=== PATIENT | female | born 1960 | race African-American/Black ===

== ENCOUNTER 2017-06-24 10:35 | Outpatient (CLI) | payer MEDICARE, MEDICAID ==
--- NOTE | 2017-06-24 11:28 | RAD ---
RIGHT KNEE FOUR VIEWS: Indication: Pain. FINDINGS: There is no fracture or dislocation of the right knee. Mild degenerative change present. No significa nt joint capsular distention. IMPRESSION: No acute osseous abnormality of the right knee. POS: [facility]
--- NOTE | 2017-06-24 11:29 | RAD ---
TWO VIEW HIP SERIES: Indication: Right hip pain. FINDINGS: There is mild osteoarthritis of the right hip. Phleboliths of the pelvis are present. There is partia l imaging of left side lumbar spine hardware. IMPRESSION: Scattered osseous degenerative change without acute fracture. POS: [facility] C
== END 2017-06-24 10:36 | disposition home or self-care (01) ==
LOC: TBSIIMAG 10:35
PROVIDERS: ATTEND Neurological Surgery
DX: M25.561 Pain in right knee (principal); M25.551 Pain in right hip; M16.11 Unilateral primary osteoarthritis, right hip

== ENCOUNTER 2017-07-07 13:13 | Outpatient (CLI) | payer MEDICARE, MEDICAID ==
[2017-07-07 15:05] LABS: Anion Gap 11 mmol/L (10-20); BUN (Urea Nitrogen) 8 mg/dL (9.8-20.1); Calc. Creatinine Clearance 0 mL/min (70-130); Calcium 9.2 mg/dL (7.8-10.44); Carbon Dioxide 29 mmol/L (22-29); Chloride 105 mmol/L (98-107); Estimated GFR-MDRD 87
== END 2017-07-07 13:14 | disposition home or self-care (01) ==
LOC: LABBT 13:13
PROVIDERS: ATTEND Neurological Surgery
DX: Z01.812 Encounter for preprocedural laboratory examination (principal); M48.061 Spinal stenosis, lumbar region without neurogenic claudication; M54.16 Radiculopathy, lumbar region
CPT/HCPCS: 80048; 93005; 93010

== ENCOUNTER 2017-07-14 07:15 | Day surgery (SDC) | payer MEDICARE, MEDICAID ==
[2017-07-07 13:40] VITALS: BMI 28.5
--- NOTE | 2017-07-14 05:52 | HP ---
HISTORY OF PRESENT ILLNESS: Ms. Mari who is known to us from previous unilateral lumbar fusion const ruct at L4-L5 in 2015. She returns today for a year or two with severe right lower extremity L3-L4 p ains. I performed x-rays of the right hip and knee as she feels a very majority of her pain in these locations . She is receiving injections with Dr. Luna, which helped for a few days, then the pain returns. MRI from [facility] reveals central canal and lateral recess stenosis bilaterally at L4 as well as some lateral recess stenosis L2-L3 to the right either or both of these could fit h er pains. PAST MEDICAL HISTORY: Arthritis, asthma, emphysema, back pains, peripheral arterial disease, esophag eal reflux, insomnia, hypercholesterolemia, hypertension, type 2 diabetes. ALLERGIES: PENICILLIN, MORPHINE, LISINOPRIL, AZITHROMYCIN, AND LATEX. CURRENT MEDICATIONS: Include hydrochlorothiazide, Klor-Con tablets, glimepiride, pantoprazole, estra diol, diclofenac, zonisamide, and amitriptyline. PAST SURGICAL HISTORY: Rotator cuff surgery in the left upper extremity and thus previously mentione d lumbar spinal fusion. PHYSICAL EXAMINATION: NEUROLOGIC: The patient is alert and oriented x3. Gait is very antalgic. EXTREMITIES: Lower extremity: Motor exam is normal. Reflexes are diminished at the right lower ext remity at the patellar and Achilles. ASSESSMENT: Lumbar stenosis and radiculopathy. PLAN: Discussed case with Dr. Kohler who met with the patient, reviewed imaging and ultimately advoca kimberly for an L3-L4 decompression. He explained to the patient the risks, benefits, and alternatives to the procedure. The patient expressed understanding and would like to move forward with surgery as nanci horan. I do believe the patient is mentally competent and capable of making medical decisions for herself and we will move forward with surgery as planned.
[2017-07-14] MEDS ORDERED: Clindamycin/D5W 900 mg/50 ml Premix Bag ONE ×2 (09:24→16:03)
[2017-07-14] MEDS ORDERED: Levofloxacin 500 mg/D5W 100 ml Premix Bag ONE (09:24)
[2017-07-14] MEDS ORDERED: Thrombin 5000 UNITS/5 ML VIAL ONE (10:35)
[2017-07-14] MEDS ORDERED: Bupivacaine/Epinephrine 0.25% 30 ML VIAL ONE (10:35)
[2017-07-14] MEDS ORDERED: Phenylephrine 10 MG/NS 250 ML 250 ML ONE (10:50)
[2017-07-14] MEDS ORDERED: Albumin 5% 500 ML ONE (10:50)
[2017-07-14] MEDS ORDERED: Albuterol Sulfate HFA (OR ONLY) ONE (10:59)
[2017-07-14] MEDS ORDERED: Fentanyl 250 MCG/5 ML VIAL ONE (11:11)
[2017-07-14] MEDS ORDERED: Famotidine/PF 20 mg/2ml Vial ONE (11:56)
--- NOTE | 2017-07-14 13:17 | OP ---
DATE OF PROCEDURE: 07/14/2017 SURGEON: Zechariah Kohler M.D. HEARINGS REPORTER: Dayton Escalera PA-C. INDICATION: Pain. DIAGNOSIS: Lumbar stenosis. PROCEDURE: L3 through L4 lumbar decompression. ANESTHESIA: General. PROCEDURE IN DETAIL: The patient was brought into the operating room and placed under general anesth esia. She was flipped from a supine to a prone position on the operating room table. A linear incis ion was then created over the L3-L4 segment. After confirming the appropriate location, an Adson pantera geur as well as a high-speed cutting drill bit and 2, 3 and 4-mm Kerrisons were then used to perform a laminectomy at the L3-L4 interspace to include the medial aspect of the facet joints until the late ral recesses and the central canal were well decompressed. The wound was then irrigated. Hemostasis was maintained throughout. The wound was then closed in anatomic layers and a pressure dressing was applied. There were no known procedure complications.
[2017-07-14] MEDS ORDERED: Fentanyl 100 MCG/2 ML VIAL ONE (13:58)
[2017-07-14] MEDS ORDERED: PHENYLEPHRINE-NS 100 MCG/ML 10 ML SYRINGE ONE (16:12)
[2017-07-14] MEDS ORDERED: Metoclopramide HCl 10 MG/2 ML VIAL ONE (16:12)
[2017-07-14] MEDS ORDERED: Lidocaine 1% PF 5 ML VIAL ONE (16:12)
[2017-07-14] MEDS ORDERED: Glycopyrrolate 0.2 MG/ML 5 ML SYRINGE ONE (16:12)
[2017-07-14] MEDS ORDERED: Propofol 200 MG/20 ML VIAL ONE (16:12)
[2017-07-14] MEDS ORDERED: Vecuronium 10 MG VIAL ONE (16:12)
[2017-07-14] MEDS ORDERED: Dexamethasone 20 MG/5 ML VIAL ONE (16:12)
[2017-07-14] MEDS ORDERED: Ondansetron HCl/PF 4 MG/2 ML Vial ONE (16:12)
== END 2017-07-14 16:45 | disposition home or self-care (01) ==
LOC: SDC 07:15
PROVIDERS: ATTEND Neurological Surgery
PROC: 00NY0ZZ Release Lumbar Spinal Cord, Open Approach (ICD-10-PCS; principal; 2017-07-14)
DX: M48.061 Spinal stenosis, lumbar region without neurogenic claudication (principal); M54.16 Radiculopathy, lumbar region; M19.90 Unspecified osteoarthritis, unspecified site; J45.909 Unspecified asthma, uncomplicated; K21.9 Gastro-esophageal reflux disease without esophagitis; E78.00 Pure hypercholesterolemia, unspecified; I10 Essential (primary) hypertension; I73.9 Peripheral vascular disease, unspecified; E11.9 Type 2 diabetes mellitus without complications; G47.00 Insomnia, unspecified; Z88.0 Allergy status to penicillin; Z88.1 Allergy status to other antibiotic agents; Z88.5 Allergy status to narcotic agent; Z91.040 Latex allergy status; Z98.1 Arthrodesis status; Z79.899 Other long term (current) drug therapy; Z79.84 Long term (current) use of oral hypoglycemic drugs; Z98.890 Other specified postprocedural states
CPT/HCPCS: 63047; 63048; 76001; 96374; P9045; J0131; J1100; J1956; J2001; J2405; J2704; J2765; J3010; J3490; S0028

== ENCOUNTER 2017-09-02 10:51 | Observation (INO) | payer MEDICARE, MEDICAID ==
--- NOTE | 2017-09-02 11:49 | CT ---
CT OF THE BRAIN WITHOUT CONTRAST: INDICATION: History of left-sided weakness for 2 weeks. The patient is also having shortness of breath and chest pain. COMPARISON: CT of the brain dated 01/28/2013 and an MRI of the brain dated 03/18/16. FINDINGS: No acute infarct, hemorrhage, or hydrocephalus is present. The septum pellucidum and third ventricle are midline. The skull and extracranial soft tissues are unremarkable. IMPRESSION: No acute intracranial abnormality seen on noncontrast CT evaluation. POS: [facility]
[2017-09-02 12:04] LABS: #Eosinphils 0.1 thou/uL (0.0-0.7); #Lymphocytes 1.6 thou/uL (1.20-3.40); #Monocytes 0.4 thou/uL (0.11-0.59); #Neutrophils 6.5 thou/uL (1.40-6.50); %Basophils 0.4 % (0.0-1.0); %Eosinophils 1.2 % (0.0-10.0); %Lymphocytes 18.2 % (21.0-51.0); %Monocytes 5.1 % (0.0-10.0); %Neutrophils 75.1 % (42.0-75.0); Hemoglobin 10.9 g/dL (12.0-16.0); Mean Corpuscular HGB CONC 32.8 g/dL (32.0-36.0); Mean Corpuscular Hemoglobin 29.8 pg (27.0-31.0); Mean Corpuscular Volume 90.8 fl (81.0-99.0); Mean Platelet Volume 7.6 fL (7.4-10.4); Platelet Count 244 thou/uL (130-400); RBC Distribution Width 11.9 % (11.5-14.5); Red Blood Cell (RBC) Count 3.66 mill/uL (4.20-5.40); White Blood Cell (WBC) Count 8.6 thou/uL (4.8-10.8)
[2017-09-02 12:18] LABS: ALT (SGPT) 9 U/L (8-55); AST (SGOT) 14 U/L (5-34); Albumin 4.1 g/dL (3.5-5.0); Alkaline Phosphatase 92 U/L (40-150); Anion Gap 15 mmol/L (10-20); BUN (Urea Nitrogen) 7 mg/dL (9.8-20.1); Bilirubin, Total 0.5 mg/dL (0.2-1.2); Calc. Creatinine Clearance 0 mL/min (70-130); Calcium 9.5 mg/dL (7.8-10.44); Carbon Dioxide 25 mmol/L (22-29); Chloride 106 mmol/L (98-107); Estimated GFR-MDRD 79; Globulin 3.3 g/dL (2.4-3.5); Glucose 91 mg/dL (70-105); Potassium 3.7 mmol/L (3.5-5.1); Protein, Total 7.4 g/dL (6.0-8.3); Sodium 142 mmol/L (136-145)
[2017-09-02 12:23] LABS: CKMB 0.6 ng/mL (0-6.6)
--- NOTE | 2017-09-02 15:07 | ULT ---
CAROTID DUPLEX SONOGRAM: HISTORY: CVA. Vascular disease. FINDINGS: RIGHT: Scattered plaque is present. Color and spectral Doppler evaluation, peak systolic velocity of 153 cm /s, and IC to CC ratio of 2.0 suggests stenosis within the distal right cervical ICA to be in the ran ge of 50-69%. Antegrade flow is present within the vertebral artery. LEFT: Scattered plaque is present. Color and spectral Doppler evaluation, peak systolic velocity of 153 cm /s, and IC to CC ratio 1.3 suggests no hemodynamically significant stenosis within the extracranial l eft ICA. Antegrade flow is present within the vertebral artery. IMPRESSION: Atherosclerosis. Slightly elevated velocities within each internal carotid artery suggests stenosis in the range of 50-69%. CT arteriogram could be considered for better detail if needed. POS: JULIO C
--- NOTE | 2017-09-02 15:21 | HP ---
DATE OF ADMISSION: 09/02/2017 CHIEF COMPLAINT: Left-sided weakness. HISTORY OF PRESENT ILLNESS: This is a 56-year-old female who came in with a complai nt of weakness for the past 2 weeks. The patient had a recent back surgery 1 month ago, and she was sent to home physical therapy where physical therapist noticed that the patient was having weakness i n the left upper and lower extremity, and she called her primary care physician who advised the patie nt to go to the ER. The patient was seen today. She was alert and oriented, did not appear to have any acute distress. Left side strengths are 30% weaker than the right side. Otherwise, she has no o ther neurologic deficits. She was able to speak in long sentences, has no dysarthria or any dysphagi a. She has a known history of type 2 diabetes mellitus and hypertension, and has a strong family his tory of strokes with both mother and father had strokes. PAST MEDICAL HISTORY: 1. Hypertension. 2. Type 2 diabetes mellitus. 3. History of asthma. PAST SURGICAL HISTORY: 1. The patient had a low back surgery for possible disk herniation. 2. The patient has right rotator cuff surgery. SOCIAL HISTORY: The patient is not a known smoker. No history of alcohol. No history of illicit dr ug use. She lives independently. Not working at this time. FAMILY HISTORY: The patient has significant family history of coronary artery disease in both mother and father having strokes at early age. History of hypertension runs in the family. REVIEW OF SYSTEMS: All 12 systems are reviewed with the patient thoroughly and found to be negative at this time. Systems reviewed HEENT, CVS, SENIOR CLIMATE ADVISOR, respiratory, GI, , all other systems are reviewed and found to be negative. Constitutional: Weight loss or gain, sense of well-being, ability to conduct usual activities, exerc ise tolerance. Skin/Breast: Rash, itching, changes in hair growth or loss, nail changes, breast lumps, tenderness, swelling, nipple discharge. Eyes: Vision, double vision, tearing, blind spots, pain. ENT/Mouth: Headaches (location, time of onset, duration, precipitating factors), vertigo, lightheadedness, injury. Vision, double vision, tearing, blind spots, pain, nose b leeding, colds, obstruction, discharge, dental difficulties, gingival bleeding, dentures, neck stiffn ess, pain, tenderness, masses in thyroid or other areas Cardiovascular: Precordial pain, substernal distress, palpitations, syncope, dyspnea on exertion, or thopnea, nocturnal paroxysmal dyspnea, edema, cyanosis, hypertension, heart murmurs, varicosities, ph lebitis, claudication. Respiratory: Pain, shortness of breath, wheezing, stridor, cough, hemoptysis, fever or night sweats Gastrointestinal: Poor appetite, dysphagia, indigestion, abdominal pain, heartburn, eructation, naus ea, vomiting, hematemesis, jaundice, constipation, or diarrhea, abnormal stools (jelly-colored, tarry, bloody, greasy, foul smelling), flatulence, hemorrhoids, recent changes in bowel habits. Genitourinary: Urgency, frequency, dysuria, nocturia, hematuria, polyuria, oliguria, unusual (or katerine nge in) color of urine, stones, hesitancy, change in size of stream, dribbling, acute retention or in continence, libido, potency. Musculoskeletal: Pain, swelling, redness or heat of muscles or joints, limitation, of motion, muscular weakness, atrophy, cramps. Neurologic/Psychiatric: Convulsions, paralyses, tremor, incoordination, parasthesias, difficulties w ith memory of speech, sensory or motor disturbances, or muscular coordination (ataxia, tremor), emoti onal problems, anxiety, depression, previous psychiatric care, unusual perceptions, hallucinations. Allergy/Immunologic: Skin rash, anemia, bleeding tendency, polydipsia, polyuria, intolerance to heat or cold. HOME MEDICATIONS: 1. Amitriptyline 25 mg at bedtime. 2. Cyclobenzaprine 10 mg p.o. t.i.d. 3. Diclofenac sodium 75 mg p.o. daily. 4. Estradiol. 5. Gabapentin 600 mg p.o. t.i.d. 6. Glimepiride 2 mg in the morning. 7. Hydrochlorothiazide 25 mg p.o. daily. 8. Lorazepam 1 mg p.o. p.r.n. 9. Potassium chloride. 10. Simvastatin 10 mg at bedtime. 11. Ventolin inhaler as needed. ALLERGIES: PENICILLIN, LISINOPRIL, MORPHINE. PHYSICAL EXAMINATION: VITAL SIGNS: Blood pressures of 138/76, heart rate is 88, respiratory is 19, saturation is 98% on ro om air. GENERAL: The patient is moderately built and moderately nourished, does not appear to be in acute di stress at this time. HEENT: Atraumatic, normocephalic. PERRLA. Extraocular muscles were intact. Oral mucous pink and m oist. CARDIOVASCULAR: S1, S2 normal. No murmurs, rubs or gallops. LUNGS: Bilateral air entry was equal. No wheezing, no crackles. ABDOMEN: Soft, nontender, no guarding, no rebound tenderness. Bowel sounds normal. MUSCULOSKELETAL: No calf tenderness. No pedal edema. No joint tenderness. No joint swelling. SKIN: No cyanosis, no erythema, no rash, no pallor. NEUROLOGIC: Cranial nerve examination II-XII intact. No focal deficits except for the motor deficit s on the left side upper and lower extremity with weakness 30% less than on the right side. PSYCHIATRIC: No signs of suicidal ideation. No signs of bryon. No signs of depression. LYMPHATICS: No evidence of any generalized lymphadenopathy was noted. LABORATORY DATA: WBC 8.6, hemoglobin 10.1, hematocrit is 33.2, platelets is 244. Sodium 142, potass ium 3.7, chloride 106, bicarbonate 25, BUN 7, creatinine 0.89. IMAGING: CT head was done showing no evidence of any acute stroke or any intracranial hemorrhage. ASSESSMENT AND PLAN: 1. Left upper and lower extremity weakness, possible transient ischemic attack. 2. Hypertension. 3. Type 2 diabetes mellitus. 4. History of chronic asthma. PLAN: 1. Plan is to do a thorough evaluation and do workup for a TIA. We will start the patient on aspiri n at this time with 81 mg daily and check the lipid profile in the morning. We will do MRI without c ontrast of the brain tomorrow and bilateral carotid ultrasound. We will do a 2-D echo to look for an y evidence of thromboembolism. We will consult Neurology and also do neuro checks every 4 hours as p er the protocol. 2. The patient has hypertension. We will restart the patient on home medications. 3. His blood pressures are well controlled at this time. We will continue with permissive hypertens ion protocol. 4. The patient has a history of type 2 diabetes mellitus. We will start the patient on diabetic t and will control the blood sugars. We will continue the home medications. At this time, the patie nt is on glimepiride. 5. History of asthma. No evidence of any exacerbation was noted. We will continue with albuterol n ebulizer treatments as needed. 6. DVT prophylaxis. Lovenox 40 mg subcu daily. I spent 75 minutes with this patient.
[2017-09-02] MEDS ORDERED: Ondansetron HCl/PF 4 MG/2 ML Vial IVP PRN ×2 (16:00→16:03)
[2017-09-02] MEDS ORDERED: Acetaminophen 325 MG TAB PO PRN ×2 (16:00→16:03)
[2017-09-02] MEDS ORDERED: Ondansetron ODT 4 MG TAB SL PRN (16:00)
[2017-09-02] MEDS ORDERED: hydrALAZINE 20 MG/ML VIAL SLOW IVP PRN (16:03)
[2017-09-02] MEDS ORDERED: Senokot 8.6 MG TAB PO PRN (16:03)
[2017-09-02] MEDS ORDERED: Bisacodyl 5 MG TAB PO PRN (16:03)
[2017-09-02 16:37] VITALS: BMI 26.7
[2017-09-02] MEDS: Famotidine/PF 20 mg/2ml Vial SLOW IVP SCH (17:20)
[2017-09-02] MEDS: HYDROcodone/Acetaminophen 5/325 mg Tablet PO PRN (17:55)
--- NOTE | 2017-09-02 19:23 | MRI ---
MR OF BRAIN 09/02/17 PROVIDED CLINICAL HISTORY: Left arm numbness. FINDINGS: The ventricular system appears normal in size and morphology. There is no evidence for intracranial h emorrhage or mass effect. There is no evidence for restricted diffusion to suggest recent infarction. No significant intracranial signal abnormality is evident. Patchy areas of T2 hyperintensity involvi ng the periventricular white matter and basal ganglia compatible with chronic microvascular ischemic change. Appropriate flow voids are seen within the major intracranial vessels. The extracranial soft tissues and calvarial marrow signal demonstrate a normal MR appearance. IMPRESSION: 1. No evidence for restricted diffusion to suggest recent infarction. 2. Chronic microvascular ischemic change. POS: [facility]
--- NOTE | 2017-09-02 20:24 | CON ---
DATE OF CONSULTATION: 09/02/2017. CONSULTING PHYSICIAN: Hospitalist Service. IMPRESSION: 1. Subjective left-sided numbness without any obvious abnormalities on MRI. 2. Hypertension. 3. Hyperlipidemia. 4. Moderate carotid stenosis bilaterally in the 50%-69% range. PLAN: 1. Continue aspirin. 2. Continue Lipitor. 3. Echocardiogram. HISTORY OF PRESENT ILLNESS: Ms. Mari is a 56-year-old black female who came in with complaints of a 2-week history of mild left-sided weakness and numbness. The home health nurse apparently instigated her decision to come to the emergency room today. She had a CT scan of the brain done, which did no t show any acute abnormalities. MRI of the brain has been performed, which by my review only shows a tiny area of chronic infarction involving the right external capsule and left subcortical anterior p arietal region. PAST MEDICAL HISTORY: As listed above. ALLERGIES: LATEX, PENICILLIN, LISINOPRIL, MORPHINE. SOCIAL HISTORY: As per chart. MEDICATIONS: Medication list was reviewed. REVIEW OF SYSTEMS: No complaint of headache, nausea, vomiting, vertigo, difficulty swallowing or spe aking. PHYSICAL EXAMINATION: GENERAL: She is a well-nourished, middle-aged woman in no distress. VITAL SIGNS: Blood pressure 138/66, pulse 76, respirations 18, temperature 98. HEENT: Pupils equal and reactive. Conjunctivae are clear. Oropharynx is clear. NECK: Supple. EXTREMITIES: No cyanosis. NEUROLOGIC: She is alert and cooperative. Her speech is fluent and clear. Cranial nerves were inta ct other than subjective decreased left facial sensation to light touch. Motor exam showed symmetric antigravity strength without fix or drift. Gait is intact. Sensory testing in extremities again is subjectively decreased in the left arm and leg. Cerebellar testing showed normal [id number] and rapid alternating movements. LABORATORY STUDIES: CBC and serum chemistries were unremarkable. SUMMARY: This is a middle-aged woman with subjective complaints of some left-sided sensory deficits. Her exam is quite unremarkable otherwise. The MRI by review on the floor did not show anything of significance. Given her risk factors and carotid disease, I would continue aspirin and a statin. Femi damon will need a followup ultrasound in a year.
[2017-09-02] MEDS: Gabapentin 300 MG CAP PO SCH (20:47)
[2017-09-02] MEDS: Docusate 100 MG CAP PO SCH (20:48)
[2017-09-02] MEDS ORDERED: Atorvastatin Calcium 40 MG TAB PO SCH (21:00)
[2017-09-02] MEDS ORDERED: Amitriptyline HCl 25 MG TAB PO SCH (21:00)
[2017-09-02] MEDS ORDERED: Estradiol 1 MG TAB PO SCH (22:30)
[2017-09-03] MEDS: HYDROcodone/Acetaminophen 5/325 mg Tablet PO PRN (03:32)
[2017-09-03 05:08] LABS: Cardiac Risk 2.9 (Less than 4.5)
[2017-09-03] MEDS: Docusate 100 MG CAP PO SCH (08:41)
[2017-09-03] MEDS: Gabapentin 300 MG CAP PO SCH (08:41)
[2017-09-03] MEDS: Famotidine/PF 20 mg/2ml Vial SLOW IVP SCH (08:42)
[2017-09-03] MEDS ORDERED: Enoxaparin Sodium 40 MG/0.4 ML SYRINGE SC SCH (09:00)
[2017-09-03] MEDS ORDERED: Aspirin 81 mg Enteric Coated Tablet PO SCH (09:00)
[2017-09-03] MEDS ORDERED: Estradiol 1 MG TAB PO SCH ×2 (09:00→21:00)
--- NOTE | 2017-09-03 12:43 | DIS ---
ATTENDING PHYSICIAN: Jarett Roldan M.D. DATE OF ADMISSION: 09/02/2017 DATE OF DISCHARGE: 09/03/2017 ADMITTING DIAGNOSIS: Left-sided weakness upper and lower extremities. DISCHARGE DIAGNOSES: Left-sided weakness, possible transient ischemic attack. SECONDARY DIAGNOSES 1. Hypertension. 2. Type 2 diabetes mellitus. 3. History of asthma. 4. Bilateral carotid artery stenosis 50-60%. INVESTIGATIONS DONE DURING THIS ADMISSION: 1. MRI of the head noncontrast did not show any evidence of stroke, but did show any evidence of chr onic ischemic changes. 2. Ultrasound of the carotids showed evidence of a 50-69% stenosis. Recommended CT angiogram. CONSULTATION: Neurology, Dr. Manolo Jimenez. He recommended the patient to be followed up in 6 months with a followup ultrasound. Did not recommend any CT angiogram at this time. HISTORY OF PRESENT ILLNESS/HOSPITAL COURSE: In brief, this is a 56-year-old female with known history of type 2 diabetes mellitus and hypertension who presented with a 2 week history o f weakness. The patient was referred by primary care doctor to the ER for further evaluation. The patient was co mpletely normal. Her strength was diminished on the left side compared to the right side. Otherwise , she is able to walk and do things normally and outpatient therapy also evaluated the patient. The patient as explained above had an MRI negative, but ultrasound showing evidence of internal carotid a rtery stenosis both sides, right greater than the left with a 50-69% and recommending a CT angiogram, but neurologist has seen the patient and said the patient can follow up in 6 months with a followup ultrasound. I explained this to the patient and advised to follow up with the primary care physician . Patient was on diclofenac advised to stop this medication as it is a high risk for strokes and cor onary artery disease and peptic ulcers. The patient is also on estradiol. Advised to stop this medi cation as the patient is high risk for strokes and advised to discuss with the primary care physician for any alternative medication for her postmenopausal symptoms. The patient is also recommended about an aspirin daily and also with atorvastatin as the patient comp lained that she has a history of muscle pains in the past. Advised to discuss with the primary care physician and a neurologist for any alternate statin. The patient is discharged home in stable condition. PHYSICAL EXAMINATION: VITAL SIGNS: Blood pressures are 128/65, heart rate is 81, respirations 18, saturation 98%. GENERAL: The patient is moderately built and moderately nourished, does not appear in acute distress . CARDIOVASCULAR: S1, S2 normal. No murmurs, rubs or gallops. LUNGS: Bilateral air entry was equal. No wheezing, no crackles. ABDOMEN: Soft, nontender, no guarding, no rebound tenderness. Bowel sounds normal. MUSCULOSKELETAL: No calf tenderness. No pedal edema. No joint tenderness, no joint swelling. SKIN: No cyanosis, no erythema, no rash, no pallor. NEUROLOGIC: Cranial nerve examination II-XII intact. No major focal deficits were noted. DISCHARGE MEDICATIONS: 1. Acetaminophen with codeine 2. Amitriptyline 25 mg at bedtime. 3. Gabapentin 600 mg p.o. t.i.d. 4. Glimepiride 2 mg p.o. daily. 5. Hydrochlorothiazide 25 mg p.o. daily. 6. Lorazepam 1 mg as needed p.r.n. 7. Pantoprazole 40 mg p.o. b.i.d. 8. Potassium 10 mg daily. 9. Ventolin. 10. Atorvastatin 80 mg p.o. daily. 11. Aspirin 81 mg p.o. daily. DISCHARGE INSTRUCTIONS: 1. The patient is evaluated by physical therapy suggested to continue on the home PT home physical t herapy. 2. Follow up with primary care physician in 1-2 weeks and to follow up with a neurologist in 1-2 [facility] and also at 6 months for repeat ultrasound of the carotids. 3. Advised the patient to continue with cardiac and diabetic diet. Thirty-five minutes spent with the patient on discharge.
[2017-09-03 12:54] VITALS: BP 126/73; TEMP 98.5
== END 2017-09-03 13:40 | disposition home health service (06) ==
LOC: ERS 10:51 → ERHOLD 12:56 → 2SE 15:42
PROVIDERS: ADMIT Family Medicine; ATTEND Family Medicine
DX: R29.898 Other symptoms and signs involving the musculoskeletal system (principal); I65.23 Occlusion and stenosis of bilateral carotid arteries; I10 Essential (primary) hypertension; E11.9 Type 2 diabetes mellitus without complications; J45.909 Unspecified asthma, uncomplicated; Z88.0 Allergy status to penicillin; Z88.5 Allergy status to narcotic agent; Z91.040 Latex allergy status; Z88.8 Allergy status to other drugs, medicaments and biological substances; Z79.84 Long term (current) use of oral hypoglycemic drugs; Z79.899 Other long term (current) drug therapy; Z98.890 Other specified postprocedural states; Z82.49 Family history of ischemic heart disease and other diseases of the circulatory system; Z82.3 Family history of stroke
CPT/HCPCS: 70450; 70551; 80053; 80061; 82553; 82962 ×2; 83090; 84484; 85025; 85652; 86140; 93005; 93880; 96372; 96374; 96376; 97116; 97139 ×3; 99285; G0378; G8978; G8979; G8980; G8987; G8988; G8989; 36415; 36416; G9162-GN-CH; G9163-GN-CH; J1650; S0028

== ENCOUNTER 2017-12-13 15:03 | Outpatient (CLI) | payer MEDICARE, MEDICAID | END 2017-12-13 15:04 | disposition home or self-care (01) | LOC: BICMAMMO 15:03 | PROVIDERS: ATTEND Family Medicine | DX: Z12.31 Encounter for screening mammogram for malignant neoplasm of breast (principal) | CPT/HCPCS: 77063; 77067 ==

== ENCOUNTER 2018-01-08 09:00 | Observation (INO) | payer MEDICARE, MEDICAID ==
[2018-01-08 09:39] LABS: #Eosinphils 0.3 thou/uL (0.0-0.7); #Lymphocytes 1.7 thou/uL (1.20-3.40); #Monocytes 0.5 thou/uL (0.11-0.59); #Neutrophils 4.9 thou/uL (1.40-6.50); %Basophils 0.5 % (0.0-1.0); %Eosinophils 3.5 % (0.0-10.0); %Lymphocytes 22.4 % (21.0-51.0); %Monocytes 7.3 % (0.0-10.0); %Neutrophils 66.3 % (42.0-75.0); Hemoglobin 10.8 g/dL (12.0-16.0); Mean Corpuscular HGB CONC 34.4 g/dL (32.0-36.0); Mean Corpuscular Hemoglobin 30.1 pg (27.0-31.0); Mean Corpuscular Volume 87.5 fl (81.0-99.0); Mean Platelet Volume 7.1 fL (7.4-10.4); Platelet Count 214 thou/uL (130-400); RBC Distribution Width 13.6 % (11.5-14.5); White Blood Cell (WBC) Count 7.4 thou/uL (4.8-10.8)
[2018-01-08] MEDS ORDERED: Fentanyl 100 MCG/2 ML VIAL ONE ×2 (09:41→12:12)
--- NOTE | 2018-01-08 09:56 | RAD ---
UPRIGHT PORTABLE CHEST 1 VIEW: Date: 01/08/18 HISTORY: 57-year-old female with history of chest pain and left arm pain. COMPARISON: 05/01/13. FINDINGS: Heart size is within normal limits. Postop changes involving the right shoulder. Monitor leads overli e the chest. No confluent pneumonia, overt edema, or pleural effusion. IMPRESSION: No acute intrathoracic disease. POS: [facility]
[2018-01-08 10:04] LABS: ALT (SGPT) 17 U/L (8-55); AST (SGOT) 25 U/L (5-34); Alkaline Phosphatase 121 U/L (40-150); Anion Gap 16 mmol/L (10-20); BUN (Urea Nitrogen) 8 mg/dL (9.8-20.1); Bilirubin, Total 0.3 mg/dL (0.2-1.2); CK (CPK) 390 U/L (29-168); Calc. Creatinine Clearance 0 mL/min (70-130); Calcium 9.8 mg/dL (7.8-10.44); Carbon Dioxide 27 mmol/L (22-29); Chloride 102 mmol/L (98-107); Estimated GFR-MDRD 82; Globulin 3.6 g/dL (2.4-3.5); Glucose 109 mg/dL (70-105); Lipase 26 U/L (8-78); Potassium 3.4 mmol/L (3.5-5.1); Protein, Total 7.6 g/dL (6.0-8.3); Sodium 142 mmol/L (136-145)
[2018-01-08 10:07] LABS: CKMB 1.4 ng/mL (0-6.6); Troponin I Less than 0.010 ng/mL (< 0.028)
--- NOTE | 2018-01-08 10:45 | CT ---
CT ANGIOGRAM OF THE THORACOABDOMINAL AORTA WITH IV CONTRAST AND 3D POSTPROCESSING: Date: 01/08/18 HISTORY: Chest pain, left arm pain. FINDINGS: The thoracoabdominal aorta is well opacified without evidence of aneurysmal dilatation or intimal fla p to suggest dissection. There is good flow without significant stenosis in the renal arteries, sandy c axis, SMA, and LEONARDO. The central pulmonary arteries are well opacified without filling defects to lujan ggest central pulmonary embolism. No pleural or pericardial effusions are seen. No pneumothoraces, focal areas of consolidation, or lung masses are identified. There are prominent lymph nodes in the left axilla measuring up to 1.0 cm. No mediastinal, hilar, rig ht axillary, or abdominal lymphadenopathy is seen. No free air or free fluid is seen in the abdomen. A small, fat-containing umbilical hernia is present. There is fatty infiltration of the liver. The pancreas, adrenal glands, and kidneys are unremarkable. A normal appearing appendix is seen. There are degenerative changes in the thoracolumbar spine. Ther e are postop changes and metallic hardware at L4-5 level. A small hiatal hernia is present. IMPRESSION: No CT evidence of aortic aneurysm or dissection. POS: [facility]
[2018-01-08] MEDS ORDERED: Nitroglycerin 2% Ointment 1 INCH/1 GM Packet ONE (11:08)
[2018-01-08] MEDS ORDERED: Ketorolac Tromethamine 30 MG/ML VIAL ONE (12:14)
--- NOTE | 2018-01-08 13:59 | HP ---
PRIMARY CARE PHYSICIAN: Bridger Mayer D.O. REASON FOR ADMISSION: Left upper extremity intense pain. HISTORY OF PRESENT ILLNESS: A 57-year-old -[place] female with a history of hypertension, di abetes type 2, who presented to emergency room today with the complaint of left shoulder, left upper arm pain. The patient has this pain for the last 2 days, but gradually getting worse. She was tryin g [id number] medication including her muscle relaxant, but that was not helping her pain. Her intensity of pain is about 10/10. Movement of the left upper extremity makes pain worse. She denies any neck pain. Because of left shoulder pain, she also feels left-sided upper chest discomfort. Sh e denies any associated nausea, vomiting, diaphoresis, shortness of breath. In the emergency room, the patient had chest x-ray, which was normal. CT dissection protocol was ord ered, which was negative for any acute process. Her routine blood test was unremarkable. When I saw this patient, at that time, she was crying from left upper extremity pain. She was not ab le to provide any good history at that time because of pain. She was appeared hemodynamically stable and website developer was normal. She denies any swelling in left upper extremity. She denies any erythema, tenderness, but movement gives her extreme pain in joint in shoulder joint and the pain rad iates down to fingertips. She denies any back pain. She denies any lower extremity pain. She denie s any neck pain. She denies any trauma. She denies any fever, chills, UTI symptoms. She denies any constipation, diarrhea, melena, or hematochezia. REVIEW OF SYSTEMS: The following complete review of systems was negative, unless otherwise mentioned in the HPI or below: Constitutional: Weight loss or gain, ability to conduct usual activities. Skin: Rash, itching. Eyes: Double vision, pain. ENT/Mouth: Nose bleeding, neck stiffness, pain, tenderness. Cardiovascular: Palpitations, dyspnea on exertion, orthopnea. Respiratory: Shortness of breath, wheezing, cough, hemoptysis, fever or night sweats. Gastrointestinal: Poor appetite, abdominal pain, heartburn, nausea, vomiting, constipation, or diarr hea. Genitourinary: Urgency, frequency, dysuria, nocturia. Musculoskeletal: Pain, swelling. Neurologic/Psychiatric: Anxiety, depression. Allergy/Immunologic: Skin rash, bleeding tendency.. Please see my HPI for pertinent positive and negative. All other review of system reviewed and negat jaime except as mentioned in the HPI. PAST MEDICAL HISTORY: Hypertension, diabetes type 2, asthma, chronic low back pain, lumbar stenosis, gastroesophageal reflux disease, peripheral arterial disease, and osteoarthritis. PAST SURGICAL HISTORY: L3-L4 lumbar decompression, left rotator cuff repair. ALLERGIES: PENICILLIN, MORPHINE, LISINOPRIL, AZITHROMYCIN, and LATEX. PAST PSYCHIATRIC HISTORY: Reviewed and negative. CURRENT HOME MEDICATIONS: Hydrochlorothiazide 25 mg p.o. daily, glimepiride 2 mg p.o. daily, omepraz ole 20 mg p.o. daily, Flexeril 10 mg q.8 hourly p.r.n., potassium chloride 20 mEq p.o. daily, and est radiol 2 mg p.o. daily. FAMILY HISTORY: Positive for coronary artery disease to mother and father. Hypertension runs among several family members. SOCIAL HISTORY: The patient lives at home. No history of tobacco, alcohol or illicit drug abuse. EMERGENCY ROOM COURSE: The patient is given aspirin, nitropatch, fentanyl 50 mcg. PHYSICAL EXAMINATION: VITAL SIGNS: Currently, blood pressure 155/68, pulse 79, respiratory rate 20, temperature 98.5, satu ration 97% on room air, weight 69.4 kilograms. GENERAL: The patient is currently alert, oriented, mild distress due to pain. HEENT: Head: Normocephalic, atraumatic. Eyes: Pupils round, reactive to light. Extraocular muscl e intact. ENT: Oropharynx within normal limits. Moist mucous membranes, no oral lesion. No pharyn geal erythema, no exudate. NECK: The patient does have on examination, left-sided lateral cervical paraspinal muscle tenderness . Left upper extremity range of motion is normal, but patient does report left shoulder pain when mo vement of the neck. LUNGS: Clear to auscultation without any rhonchi or rales. CARDIAC: S1 and S2 regular without any murmur. CHEST WALL: The patient does have point local tenderness over left-sided upper anterior chest wall. ABDOMEN: Soft, bowel sounds present, nontender, nondistended. No organomegaly, no mass, no suprapub ic tenderness. BACK: The patient does have scapular tenderness on the left side as well as left upper back tenderne ss. EXTREMITIES: Lower extremity, no edema. Good peripheral pulsation. SKIN: No skin rash. HEMATOLOGICAL: No lymphadenopathy. PSYCHIATRIC: Normal affect. NEUROLOGIC: Nonfocal examination. SIGNIFICANT LABORATORY DATA: EKG showing normal sinus rhythm, LVH, nonspecific ST-T changes. CBC: WBC 7.4, hemoglobin 10.8, platelet 214. BMP: Sodium 142, potassium 3.4, chloride 102, carbon dioxid e 27, anion gap 16, BUN 8, creatinine 0.86, glucose of 109, calcium 9.8. LFT: AST 25, ALT 17, alkaline phosphatase 121, albumin 4.0, lipase 26. CK 390, CK-MB 1.4, troponin I less than 0.010, BNP 62. ASSESSMENT AND PLAN: 1. Intractable left upper extremity pain. Based on clinical examination, the patient does not have any obvious local pathology. Suspecting ligament/rotator cuff related pain in the left shoulder join t. Another differential is cervical spondylosis causing radicular pain. At this point, we will keep this patient in hospital and control her pain. Her cardiac enzymes negative. Her EKG is normal, do es not suspect any cardiac etiology, but we will rule out with serial cardiac enzymes x3. We will av oid nitropatch because of low blood pressure. We will control her pain with fentanyl 25 mg q.2 hourl y p.r.n. along with Toradol 30 mg IV q.6 hourly p.r.n. We will also try to rule out any deep vein th rombosis in left upper extremity with ultrasound. If all test is unremarkable and her pain is unbear able, then we will consider doing CT cervical spine to rule out any cervical disk disease problem. W e will also continue muscle relaxant, Flexeril 10 mg t.i.d. p.r.n. 2. Hypertension history, but currently low blood pressure, most likely related with nitropatch given in the emergency room. We will discontinue nitropatch. We will hold on hydrochlorothiazide for now . We will give her IV fluid. If blood pressure permits, then we will resume hydrochlorothiazide. 3. Diabetes type 2. Continue glimepiride 2 mg p.o. daily. Diabetic diet will be given, insulin as per sliding scale protocol. 4. Gastroesophageal reflux disease. Protonix 40 mg p.o. daily. 5. Hypokalemia. We will replace potassium chloride 20 mEq p.o. daily and one time dose today. 6. Anemia, normocytic, normochromic. Ferrous sulfate 325 mg p.o. daily will be given. 7. Deep venous thrombosis prophylaxis not needed because we are expecting discharge in 24-48 hours. 8. Gastrointestinal prophylaxis. Protonix 40 mg p.o. daily. CODE STATUS: The patient is FULL CODE. Patient's son is surrogate decision maker. Disposition plan based on clinical course. Plan of care discussed with the patient and her son at [facility] in the emergency room.
--- NOTE | 2018-01-08 14:10 | ULT ---
LEFT UPPER EXTREMITY VENOUS DUPLEX ULTRASOUND INCLUDING COLOR AND SPECTRAL DOPPLER IMAGING: Date: 01/08/18 HISTORY: 57-year-old female with left upper extremity pain and left neck pain. FINDINGS: Exam performed including visualized left jugular, subclavian, axillary, brachial, radial, and ulnar v eins. Cephalic and basilic veins are patent. There is normal compressibility and augmentation. IMPRESSION: No evidence for deep venous thrombosis. POS: [facility]
[2018-01-08] MEDS ORDERED: Mag-Al 1200 mg/1200 mg/30 ML UDCUP PO PRN (14:24)
[2018-01-08] MEDS ORDERED: Loperamide HCl 2 MG CAP PO PRN (14:24)
[2018-01-08] MEDS ORDERED: Potassium Chloride 20 MEQ TAB PO SCH (14:24)
[2018-01-08] MEDS ORDERED: Milk Of Magnesia 30 ML UDCUP PO PRN (14:24)
[2018-01-08] MEDS ORDERED: Acetaminophen 325 MG TAB PO PRN (14:24)
[2018-01-08] MEDS ORDERED: Eucerin (Mineral Oil/Petrolatum,White) 30 gm Jar TOP PRN (14:24)
[2018-01-08] MEDS ORDERED: HumaLOG 300 UNITS/3 ML VIAL SC PRN ×2 (14:24)
[2018-01-08] MEDS ORDERED: Chloraseptic Spray 180 ml Bottle PO PRN (14:24)
[2018-01-08] MEDS ORDERED: Sodium Chloride 0.65% Nasal 44 ML BOT EA NARE PRN (14:24)
[2018-01-08] MEDS ORDERED: Artificial Tears 18 DROP/0.9 ML EA EYE PRN (14:24)
[2018-01-08] MEDS ORDERED: Ondansetron PF 4 MG/2 ML Vial IVP PRN (14:24)
[2018-01-08] MEDS ORDERED: Diabetic Tussin 200 MG/10 ML UDCUP PO PRN (14:24)
[2018-01-08] MEDS ORDERED: hydrALAZINE 20 MG/ML VIAL SLOW IVP PRN (14:24)
[2018-01-08] MEDS ORDERED: Dextrose 5% in Water 1,000 ML IV PRN (14:24)
[2018-01-08] MEDS ORDERED: Loratadine 10 MG TAB PO PRN (14:24)
[2018-01-08] MEDS ORDERED: Dextrose 50% Abboject 50 ML SYRINGE SLOW IVP PRN (14:24)
[2018-01-08 15:27] VITALS: BMI 30.2
[2018-01-08] MEDS: Fentanyl 100 MCG/2 ML VIAL SLOW IVP PRN ×3 (15:33→23:08)
[2018-01-08] MEDS: NS 0.9% w/ 20 MEQ KCL 1,000 ML/1,000 ML BAG IV SCH ×3 (16:20→23:54)
[2018-01-08] MEDS ORDERED: ISOVUE-370 76%-LOCM 1 ML ONE (18:29)
[2018-01-08 18:42] LABS: CKMB 1.1 ng/mL (0-6.6); Troponin I Less than 0.010 ng/mL (< 0.028)
[2018-01-08] MEDS: Ketorolac Tromethamine 30 MG/ML VIAL IVP PRN (19:00)
[2018-01-08] MEDS: Zolpidem Tartrate 5 MG TAB PO PRN (20:55)
[2018-01-09 05:04] LABS: Anion Gap 11 mmol/L (10-20); BUN (Urea Nitrogen) 12 mg/dL (9.8-20.1); Calc. Creatinine Clearance 93 mL/min (70-130); Calcium 8.7 mg/dL (7.8-10.44); Carbon Dioxide 25 mmol/L (22-29); Chloride 110 mmol/L (98-107); Estimated GFR-MDRD 85; Glucose 145 mg/dL (70-105); Potassium 3.6 mmol/L (3.5-5.1); Sodium 142 mmol/L (136-145)
[2018-01-09 05:06] LABS: #Eosinphils 0.3 thou/uL (0.0-0.7); #Lymphocytes 1.4 thou/uL (1.20-3.40); #Monocytes 0.5 thou/uL (0.11-0.59); #Neutrophils 5.6 thou/uL (1.40-6.50); %Basophils 0.1 % (0.0-1.0); %Eosinophils 3.4 % (0.0-10.0); %Lymphocytes 18.1 % (21.0-51.0); %Monocytes 6.7 % (0.0-10.0); %Neutrophils 71.7 % (42.0-75.0); Hemoglobin 9.2 g/dL (12.0-16.0); Mean Corpuscular HGB CONC 32.8 g/dL (32.0-36.0); Mean Corpuscular Hemoglobin 29.2 pg (27.0-31.0); Mean Platelet Volume 7.1 fL (7.4-10.4); Platelet Count 193 thou/uL (130-400); RBC Distribution Width 13.8 % (11.5-14.5); Red Blood Cell (RBC) Count 3.16 mill/uL (4.20-5.40); White Blood Cell (WBC) Count 7.8 thou/uL (4.8-10.8)
[2018-01-09] MEDS: Fentanyl 100 MCG/2 ML VIAL SLOW IVP PRN ×4 (06:24→16:20)
[2018-01-09] MEDS: Ketorolac Tromethamine 30 MG/ML VIAL IVP PRN ×3 (08:03→20:15)
[2018-01-09] MEDS: Potassium Chloride 20 MEQ TAB PO SCH (08:06)
[2018-01-09] MEDS: Glimepiride 2 MG TAB PO SCH (08:06)
[2018-01-09] MEDS: Estradiol 1 MG TAB PO SCH (08:08)
[2018-01-09] MEDS: NS 0.9% w/ 20 MEQ KCL 1,000 ML/1,000 ML BAG IV SCH ×2 (08:52→17:04)
[2018-01-09 14:22] LABS: CRP (Inflammatory) 2.9 mg/dL (= or < 0.5); Uric Acid 5.4 mg/dL (2.6-6.0)
[2018-01-09] MEDS ORDERED: Lidocaine 1% (PF) 30 ML VIAL ONE (14:26)
--- NOTE | 2018-01-09 14:54 | RAD ---
LEFT SHOULDER 3 VIEWS: Date: 01/09/18 HISTORY: Left shoulder pain. FINDINGS/IMPRESSION: There are degenerative changes in the acromioclavicular joint. No fracture, dislocation, or bony dest ruction is seen. POS: [facility]
[2018-01-09] MEDS ORDERED: Lidocaine 1% w/Epinephrine 1:200K 30 ML VIAL FS SCH (15:30)
--- NOTE | 2018-01-09 17:06 | PDOC.PN ---
- Subjective Encounter Start Date: 01/09/18 Encounter Start Time: 13:00 -: old records requested/rev PT seen and exmained, chart reviewe din its entirety, ths is my first visit with this patient. Pt follow up for left arm pain. R/O for ACS overnight, trop neg x 3. pt still with severe shoulder pain No F/C, no N/V/d/C, clammy. pain 10/10 all systems reviewed and neg x as above - Objective Resuscitation Status: Resuscitation Status FULL:Full Resuscitation MAR Reviewed: Yes Vital Signs & Weight: Vital Signs (12 hours) Temp Pulse Resp BP BP Pulse Ox 01/09/18 12:20 88 18 140/74 99 01/09/18 07:49 98.4 F 86 16 138/84 96 Weight Weight 175 lb 3.2 oz I&O: 01/08/18 01/09/18 01/10/18 06:59 06:59 06:59 Intake Total 2014 Result Diagrams: 01/09/18 04:42 01/09/18 04:42 Additional Labs: Accuchecks 01/09/18 01/08/18 12:23 20:52 POC Glucose 99 182 H Radiology Reviewed by me: Yes EKG Reviewed by me: Yes Phys Exam - Physical Examination acute pain HEENT: PERRLA, moist MMs, sclera anicteric, oral pharynx no lesions Neck: no nodes, no JVD, supple, full ROM Respiratory: no wheezing, no rales, no rhonchi, clear to auscultation bilateral Cardiovascular: RRR, no significant murmur, no rub Gastrointestinal: soft, non-tender, no distention, positive bowel sounds Musculoskeletal: pulses present effusion to left shoulder, warm, not erythematous, tender Neurological: non-focal, normal sensation, moves all 4 limbs guarding left arm due to pain Lymphatic: no nodes Psychiatric: normal affect, A&O x 3 Skin: no rash, normal turgor, cap refill <2 seconds Dx/Plan (1) Left shoulder pain Code(s): M25.512 - PAIN IN LEFT SHOULDER Status: Acute Qualifiers: Chronicity: acute Qualified Code(s): M25.512 - Pain in left shoulder (2) Effusion, left shoulder Code(s): M25.412 - EFFUSION, LEFT SHOULDER Status: Acute (3) DM2 (diabetes mellitus, type 2) Status: Acute Qualifiers: Diabetes mellitus technician terminal and repeater insulin use: without technician terminal and repeater use Diabetes mellitus complication status: without complication Qualified Code(s): E11.9 - Type 2 diabetes mellitus without complications (4) GERD (gastroesophageal reflux disease) Code(s): K21.9 - GASTRO-ESOPHAGEAL REFLUX DISEASE WITHOUT ESOPHAGITIS Status: Acute Qualifiers: Esophagitis presence: without esophagitis Qualified Code(s): K21.9 - Gastro -esophageal reflux disease without esophagitis (5) HTN (hypertension) Code(s): I10 - ESSENTIAL (PRIMARY) HYPERTENSION Status: Chronic Qualifiers: Hypertension type: essential hypertension Qualified Code(s): I10 - Essential (primary) hypertension - Plan cont current plan of care, plan discussed w/ family * . 3v shoulder xrays, check ESR, CRP, uric acid, ortho consultation for aspirate and opinion, i have discussed with Dr Macias personally
--- NOTE | 2018-01-09 17:26 | CON ---
DATE OF CONSULTATION: 01/09/2018. HISTORY OF PRESENT ILLNESS: The patient is a 57-year-old female who is right-handed. She states keshawn t approximately 1 month ago without a history of trauma or increased activity, the patient began havi ng off and on pain in the left shoulder region. The pain significantly increased in the last 3-4 day s and became bad enough where she presented to the emergency room yesterday. The patient complained of pain in the left shoulder region. The pain is diffusely over the shoulder, both anterior and post erior, also superior and lateral with some pain that radiates down the arm to the elbow and some pain that goes up into the left trapezius and interscapular area. The patient states that she has been h aving chills, but has not documented any fever. States that any attempts at movement of the left carson ulder causes her pain. She has not had any erythema. No open wounds. She has been followed for the last 24 hours and has been afebrile during the entire hospital course. She had x-rays of her left s h[place], which showed arthritic changes in the acromioclavicular joint, but otherwise they were negat jaime. She has not had any previous surgery on the left shoulder. She did have a rotator cuff repair that was performed on the right shoulder. PAST MEDICAL HISTORY AND MEDICAL ILLNESSES: Diabetes type 2, hypertension, asthma, chronic low back pain, lumbar stenosis, gastroesophageal reflux, peripheral artery disease and arthritis. PAST SURGICAL HISTORY: L3-L4 lumbar decompression and right rotator cuff repair. ALLERGIES: PENICILLIN, MORPHINE, LISINOPRIL, LATEX and AZITHROMYCIN. PHYSICAL EXAMINATION: GENERAL: The patient has been afebrile during the entire hospital course. VITAL SIGNS: Her last vital signs, pulse 88, respiratory rate 18, blood pressure 140/74, O2 saturati on 99 on room air. EXTREMITIES: Examination of the left shoulder region, the patient is diffusely tender around the ent jami shoulder, both anterior and posterior, superior and lateral. I am able to move the shoulder up t o 90 degrees of flexion or abduction with minimal discomfort. The patient will not allow any further elevation of the shoulder because of pain. There is no crepitance or popping. There is no erythema . No open wounds. Left upper extremity is neurovascularly intact. She is also tender in the left t rapezius and interscapular region. IMPRESSION: Severe left shoulder pain. It does not appear to be a septic arthritis and she is not r unning any type of fever and she has normal white count. I do not see a definitive etiology of her p ain at this point. PLAN: Attempts were made to aspirate the shoulder joint in the posterior aspect of the shoulder. Af ter prepping the skin, I used 1% lidocaine and then used an 18 gauge needle, was unable to aspirate a ny fluid from the posterior aspect of the shoulder region. I will put an order for Radiology to perf orm an arthrocentesis of the left shoulder under fluoroscopy. Also I will order an MRI of the left dorothy benitez and try to determine the etiology of her pain.
[2018-01-09] MEDS: Zolpidem Tartrate 5 MG TAB PO PRN (20:16)
[2018-01-09] MEDS ORDERED: Gabapentin 300 MG CAP PO SCH (21:30)
[2018-01-10] MEDS: NS 0.9% w/ 20 MEQ KCL 1,000 ML/1,000 ML BAG IV SCH ×4 (00:38→23:34)
[2018-01-10 05:08] LABS: #Basophils 0.1 thou/uL (0.0-0.2); #Eosinphils 0.2 thou/uL (0.0-0.7); #Lymphocytes 1.7 thou/uL (1.20-3.40); #Monocytes 0.5 thou/uL (0.11-0.59); #Neutrophils 4.2 thou/uL (1.40-6.50); %Basophils 1.5 % (0.0-1.0); %Eosinophils 3.7 % (0.0-10.0); %Lymphocytes 25.1 % (21.0-51.0); %Neutrophils 62.7 % (42.0-75.0); Mean Corpuscular HGB CONC 32.7 g/dL (32.0-36.0); Mean Corpuscular Hemoglobin 29.3 pg (27.0-31.0); Mean Corpuscular Volume 89.7 fl (81.0-99.0); Mean Platelet Volume 7.5 fL (7.4-10.4); Platelet Count 163 thou/uL (130-400); Red Blood Cell (RBC) Count 3.06 mill/uL (4.20-5.40); White Blood Cell (WBC) Count 6.7 thou/uL (4.8-10.8)
[2018-01-10 05:26] LABS: Anion Gap 8 mmol/L (10-20); BUN (Urea Nitrogen) 12 mg/dL (9.8-20.1); Calc. Creatinine Clearance 106 mL/min (70-130); Calcium 8.6 mg/dL (7.8-10.44); Carbon Dioxide 24 mmol/L (22-29); Chloride 113 mmol/L (98-107); Estimated GFR-MDRD Greater than 90; Glucose 90 mg/dL (70-105); Magnesium 1.6 mg/dL (1.6-2.6); Potassium 3.8 mmol/L (3.5-5.1); Sodium 141 mmol/L (136-145)
[2018-01-10] MEDS: Ketorolac Tromethamine 30 MG/ML VIAL IVP PRN ×3 (06:20→18:02)
[2018-01-10] MEDS: Gabapentin 300 MG CAP PO SCH ×3 (08:09→21:32)
[2018-01-10] MEDS: Estradiol 1 MG TAB PO SCH (08:09)
[2018-01-10] MEDS: Glimepiride 2 MG TAB PO SCH (08:09)
[2018-01-10] MEDS: Potassium Chloride 20 MEQ TAB PO SCH (08:10)
[2018-01-10] MEDS: Cyclobenzaprine 10 MG TAB PO PRN ×2 (08:18→16:49)
[2018-01-10] MEDS: Ondansetron ODT 4 MG TAB PO PRN ×2 (08:18→16:49)
--- NOTE | 2018-01-10 12:27 | MRI ---
MRI LEFT SHOULDER WITHOUT CONTRAST: Date: 01/10/18 HISTORY: Shoulder pain. COMPARISON: Radiographs from prior day. FINDINGS: Exam is severely limited due to motion artifact. Biceps Tendon: Severe intraarticular tendinosis biceps tendon with interstitial tearing. Labrum: Abnormal degenerative signal throughout the superior labrum with labral tearing. Rotator Cuff: There is chronic full thickness, full width supraspinatus tendon tear from the footplate with fibers retracted in the humeral head. There is some scar and granulation tissue bridging the footplate and t hese fibers. There is extensive tendinosis of the infraspinatus tendon with interstitial tearing. Sub scapularis also demonstrates extensive tendinosis. Muscles: Muscle bulk is without significant atrophy. Mild edema of the supraspinatus. Bones: Advanced degenerative changes of the acromioclavicular joint. There are some central osteophytes of t he humeral head. There is also humeral head/neck junction osteophytes. Subchondral cyst of the superi or glenoid. IMPRESSION: 1. Full thickness, full width supraspinatus tendon tear from the footplate with some bridging scar/g ranulation tissue. The torn fibers are at the level of the mid humeral head. No significant muscle at rophy. 2. Extensive tearing throughout the superior labrum. 3. Central osteophyte formation of the humeral head, as well as humeral head/neck junction osteophyt es. 4. Advanced degenerative changes of acromioclavicular joint. 5. Type III acromial with subacromial keel spur osteophyte. POS: [facility]
[2018-01-10] MEDS: Senokot 8.6 MG TAB PO PRN (18:23)
[2018-01-10] MEDS: Zolpidem Tartrate 5 MG TAB PO PRN (21:32)
[2018-01-11] MEDS: Glimepiride 2 MG TAB PO SCH (07:24)
[2018-01-11] MEDS: Senokot 8.6 MG TAB PO PRN (07:24)
[2018-01-11] MEDS: Ketorolac Tromethamine 30 MG/ML VIAL IVP PRN (07:25)
[2018-01-11] MEDS: NS 0.9% w/ 20 MEQ KCL 1,000 ML/1,000 ML BAG IV SCH (07:25)
[2018-01-11] MEDS: Potassium Chloride 20 MEQ TAB PO SCH (07:27)
[2018-01-11 07:42] VITALS: BP 133/60; TEMP 98.5
[2018-01-11] MEDS: Gabapentin 300 MG CAP PO SCH (08:09)
[2018-01-11] MEDS: Estradiol 1 MG TAB PO SCH (08:09)
--- NOTE | 2018-01-11 13:44 | PDOC.PN ---
- Subjective Encounter Start Date: 01/10/18 Encounter Start Time: 13:25 -: old records requested/rev Pt seen and exmained, chart reviewe din its entirety, this is my first visit with this patient. Follow up for left arm pain, cardiac r/o. cardiac workup negative. Pt seen on rounds. upon entering the room, pt tremulous, tacycardic, complaining of left shoulder pain. Feels feverish, but none documented, no n/V/D/C, no CP, no SOB All systems reviewed but neg x as per hPI - Objective Resuscitation Status: Resuscitation Status FULL:Full Resuscitation MAR Reviewed: Yes Vital Signs & Weight: Vital Signs (12 hours) Temp Pulse Resp BP BP Pulse Ox 01/11/18 07:25 98.5 F 94 16 133/60 92 L 01/11/18 07:06 97.8 F 107 H 18 01/11/18 04:47 107 H 18 137/66 96 Weight Weight 180 lb 3.2 oz I&O: 01/10/18 01/11/18 01/12/18 06:59 06:59 06:59 Intake Total 1140 3125 300 Balance 1140 3125 300 Result Diagrams: 01/10/18 04:14 01/10/18 04:14 Additional Labs: Accuchecks 01/11/18 01/10/18 01/10/18 06:03 21:37 17:53 POC Glucose 98 80 96 01/10/18 01/10/18 17:26 16:58 POC Glucose 64 L 60 L Radiology Reviewed by me: Yes EKG Reviewed by me: Yes Phys Exam - Physical Examination in acute pain HEENT: PERRLA, moist MMs, sclera anicteric, oral pharynx no lesions Neck: no nodes, supple, full ROM Respiratory: no wheezing, no rales, no rhonchi, clear to auscultation bilateral Cardiovascular: no significant murmur, no rub tachy, regular, no murmurs Gastrointestinal: soft, non-tender, no distention, positive bowel sounds guarding left shoulder. joint warm, slightly reg, diffusely tender wuth increased tendeness to posterior apex. feels like effusion present Neurological: non-focal, normal sensation, moves all 4 limbs Lymphatic: no nodes Psychiatric: normal affect, A&O x 3 Skin: no rash, normal turgor, cap refill <2 seconds Dx/Plan (1) Left shoulder pain Code(s): M25.512 - PAIN IN LEFT SHOULDER Status: Acute Qualifiers: Chronicity: acute Qualified Code(s): M25.512 - Pain in left shoulder Comment: joint related, not cardiac. looks like a septic joint at present. Will get labs, ESR, CRP, uric acid, 3v xray and ask ortho to see, may need an aspiration (2) Effusion, left shoulder Code(s): M25.412 - EFFUSION, LEFT SHOULDER Status: Acute (3) DM2 (diabetes mellitus, type 2) Status: Chronic Qualifiers: Diabetes mellitus nursing home insulin use: without terminal system operator use Diabetes mellitus complication status: without complication Qualified Code(s): E11.9 - Type 2 diabetes mellitus without complications (4) GERD (gastroesophageal reflux disease) Code(s): K21.9 - GASTRO-ESOPHAGEAL REFLUX DISEASE WITHOUT ESOPHAGITIS Status: Acute Qualifiers: Esophagitis presence: without esophagitis Qualified Code(s): K21.9 - Gastro -esophageal reflux disease without esophagitis (5) HTN (hypertension) Code(s): I10 - ESSENTIAL (PRIMARY) HYPERTENSION Status: Chronic Qualifiers: Hypertension type: essential hypertension Qualified Code(s): I10 - Essential (primary) hypertension - Plan cont current plan of care, plan discussed w/ family, PT/OT, out of bed/ambulate * . foillow up on xray and ortho recommendations
--- NOTE | 2018-01-11 14:20 | DIS ---
PRIMARY CARE PHYSICIAN: Dr. Mayer DATE OF ADMISSION: 01/08/2018 DATE OF DISCHARGE: 01/11/2018 DISCHARGE DIAGNOSES: 1. Left shoulder pain, secondary to acute supraspinatus tear. 2. Essential hypertension. 3. Gastroesophageal reflux disease without esophagitis, chronic. 4. Chronic anemia. 5. Hypokalemia. 6. Intractable pain. 7. Diabetes mellitus type 2 without mention of complications. CONSULTATIONS: Orthopedics, Dr. Kamaljit Macias. PROCEDURES: 1. Attempted bedside aspiration of the left shoulder. 2. MRI of the left shoulder. HISTORY AND PHYSICAL: Ms. Mari is a 57-year-old female with history of hypertension, GERD, and diabetes, who presented to Emergency Department with complaints of left arm pain. The pain started about 2 days ago, but has been gradually getting worse. She was trying [id number] medications including muscle relaxant, but did not seem to help. On arrival to the ER was complaining of being 10/10, intractable. In the emergency department, an ultrasound was done that was negative. Vascular imaging was done that was negative. We were subsequently called for admission for cardiac rule out. HOSPITAL COURSE: The patient was seen and examined by Dr. Ramirez. Labs were significant for a negative troponin, CK-MB 1.4, CK 390, white blood cell count initially normal at 7.4, the remainder of her labs were normal. She was placed in observation. Serial cardiac biomarkers were obtained. Per Dr. Ramirez's initial H&P, he thought it was a ligament or rotator cuff related pain and placed her on fentanyl and Toradol. Overnight 01/08/2018 to 01/09/2018, the patient's pain was really not controlled. She was tremulous when I saw her the next morning. On my inspection, she was felt to have an effusion, also had increased heat, redness and tenderness to palpation. The patient was given a dose of Toradol, 3 view shoulder x-ray was ordered, a sed rate, CRP, and uric acid was ordered and were all negative except for a slight elevation of CRP. Orthopedics was consulted, saw the patient and was concerned about an effusion. He attempted bedside aspiration that was unsuccessful, so he recommended MRI. MRI was done late that night/early the next morning, and reviewed on 2017. It showed a full thickness supraspinatus tear just distal to the edges proximal to the humeral head. There was a slight amount of edema and hemorrhage , but no large fluid collection. I discussed the case with Dr. Macias and he felt there was nothing to do initially. We will let her cool off, put her in a sling and do passive range of motion physical therapy when she sees her and work on operative repair later on if needed. The patient was watched overnight 01/10/2018 to 01/11/2018 for pain control and by this morning was feeling much better. Transitioned to oral pain medications and was stable for discharge with outpatient followup. PHYSICAL EXAMINATION: The patient was seen and examined on the day of discharge. Discharge plan and disposition was discussed with the patient face to face at the bedside. NEW MEDICATIONS: 1. New medications, naproxen 500 mg p.o. b.i.d. p.r.n. shoulder pain. OLD MEDICATIONS TO CONTINUE: 1. Amitriptyline 25 mg p.o. at bedtime. 2. Aspirin 81 mg daily. 3. Atorvastatin 80 mg p.o. at bedtime. 4. Cyclobenzaprine 10 mg p.o. t.i.d. p.r.n. muscle spasm. 5. Diphenhydramine 25 mg p.o. q.6 hours p.r.n. 6. Gabapentin 600 mg p.o. t.i.d. 7. Glimepiride 2 mg p.o. q.a.m. with meals. 8. Hydrochlorothiazide 25 mg daily. 9. Lorazepam 1 mg p.o. p.r.n. insomnia. 10. Pantoprazole 40 mg p.o. b.i.d. 11. Paroxetine 10 mg daily. 12. Ventolin inhaler 2 puffs inhaled q.4 hours p.r.n. 13. Potassium chloride 10 mEq daily. FOLLOWUP APPOINTMENTS: 1. Primary care physician within a week. 2. Dr. Macias in 2-3 weeks. DISCHARGE CONDITION: Stable. DISPOSITION: She will be discharged home via private vehicle. DISCHARGE DIET: Heart healthy diabetic diet recommended. DISCHARGE ACTIVITY: As per orthopedic limitations and per Dr. Macias. [facility]
--- NOTE | 2018-02-19 19:56 | EKG ---
Test Reason : Blood Pressure : / mmHG Vent. Rate : 084 BPM Atrial Rate : 084 BPM P-R Int : 152 ms QRS Dur : 072 ms QT Int : 388 ms P-R-T Axes : 049 -15 -20 degrees QTc Int : 458 ms Normal sinus rhythm Moderate voltage criteria for LVH, may be normal variant Nonspecific T wave abnormality Abnormal ECG Confirmed by SALENA REYNAGA ([id number]), medical transcription editor IRIS JARA ([id number]) on 02/19/2018 7:55:45 PM Referred By: Confirmed By:SALENA REYNAGA
== END 2018-01-11 11:31 | disposition home or self-care (01) ==
LOC: ERS 09:00 → 2SW 13:55
PROVIDERS: ADMIT Internal Medicine; ATTEND Internal Medicine
DX: M75.102 Unspecified rotator cuff tear or rupture of left shoulder, not specified as traumatic (principal); M19.90 Unspecified osteoarthritis, unspecified site; I10 Essential (primary) hypertension; K21.9 Gastro-esophageal reflux disease without esophagitis; M79.622 Pain in left upper arm; D64.9 Anemia, unspecified; E87.6 Hypokalemia; E11.51 Type 2 diabetes mellitus with diabetic peripheral angiopathy without gangrene; Z79.82 Long term (current) use of aspirin; Z79.899 Other long term (current) drug therapy; Z88.0 Allergy status to penicillin; Z88.1 Allergy status to other antibiotic agents; Z91.040 Latex allergy status; Z98.890 Other specified postprocedural states
CPT/HCPCS: 71045; 71275; 73030; 73221; 80048 ×2; 80053; 82550; 82553 ×2; 82962 ×4; 83690; 83735; 83880; 84484 ×2; 84550; 85025 ×3; 85652; 86140; 93005; 93971; 96361 ×4; 96374; 96375; 96376 ×5; 99285; G0378 ×2; 36415; 36416; J1885; J2001; J3010; Q0162

== ENCOUNTER 2018-02-03 12:35 | Outpatient (CLI) | payer MEDICARE, MEDICAID ==
--- NOTE | 2018-02-03 14:02 | RAD ---
CHEST TWO VIEWS: History: Pre op. Chest pain. Comparison: 01-08-18 FINDINGS: Cardiac silhouette and pulmonary vasculature are unremarkable. Mediastinum is midline. No confluent a irspace consolidation, pneumothorax, or pleural fluid. Post-operative changes right shoulder. IMPRESSION: No active cardiopulmonary abnormalities are demonstrated. POS: [facility]
[2018-02-03 14:04] LABS: Hemoglobin 11.9 g/dL (12.0-16.0); Mean Corpuscular HGB CONC 33.2 g/dL (32.0-36.0); Mean Corpuscular Hemoglobin 29.6 pg (27.0-31.0); Mean Corpuscular Volume 89.2 fL (78.0-98.0); Mean Platelet Volume 6.8 fL (7.4-10.4); Platelet Count 276 thou/uL (130-400); RBC Distribution Width 12.7 % (11.5-14.5); Red Blood Cell (RBC) Count 4.03 mill/uL (4.20-5.40)
[2018-02-03 14:12] LABS: Prothrombin Time 13.2 SEC (12.0-14.7)
[2018-02-03 14:13] LABS: PTT 31.4 SEC (22.9-36.1)
[2018-02-03 14:24] LABS: ALT (SGPT) 14 U/L (8-55); AST (SGOT) 20 U/L (5-34); Albumin 4.3 g/dL (3.5-5.0); Alkaline Phosphatase 115 U/L (40-150); Anion Gap 8 mmol/L (10-20); BUN (Urea Nitrogen) 14 mg/dL (9.8-20.1); Bilirubin, Total 0.3 mg/dL (0.2-1.2); Calc. Creatinine Clearance 0 mL/min (70-130); Calcium 9.9 mg/dL (7.8-10.44); Carbon Dioxide 32 mmol/L (22-29); Chloride 104 mmol/L (98-107); Estimated GFR-MDRD 78; Globulin 3.5 g/dL (2.4-3.5); Glucose 74 mg/dL (70-105); Potassium 4.2 mmol/L (3.5-5.1); Protein, Total 7.8 g/dL (6.0-8.3); Sodium 140 mmol/L (136-145)
== END 2018-02-03 12:36 | disposition home or self-care (01) ==
LOC: LABBT 12:35
PROVIDERS: ATTEND Internal Medicine Cardiovascular Disease
DX: Z01.818 Encounter for other preprocedural examination (principal); R94.39 Abnormal result of other cardiovascular function study
CPT/HCPCS: 71046; 80053; 85027; 85610; 85730; 93005; 93010

== ENCOUNTER 2018-02-04 06:13 | Day surgery (SDC) | payer MEDICARE, MEDICAID ==
[2018-02-03 12:48] VITALS: BMI 28.8
[2018-02-04] MEDS ORDERED: Lidocaine 1% (PF) 30 ML VIAL ONE (06:48)
[2018-02-04] MEDS ORDERED: Heparin 10,000 UNITS/1 ML VIAL ONE (07:27)
[2018-02-04 07:35] LABS: Cardiac Risk 2.6 (Less than 4.5)
[2018-02-04] MEDS ORDERED: Midazolam HCl 2 mg/2 ml Vial ONE (08:01)
[2018-02-04] MEDS ORDERED: Fentanyl 100 MCG/2 ML VIAL ONE (08:01)
[2018-02-04] MEDS ORDERED: Protamine Sulfate 50 MG/5 ML VIAL ONE (08:31)
[2018-02-04] MEDS ORDERED: Iopamidol 370 76% 100 ML VIAL ONE (09:36)
== END 2018-02-04 15:50 | disposition home or self-care (01) ==
LOC: CCL 06:13
PROVIDERS: ATTEND Internal Medicine Cardiovascular Disease
DX: R93.1 Abnormal findings on diagnostic imaging of heart and coronary circulation (principal); I82.629 Acute embolism and thrombosis of deep veins of unspecified upper extremity; I83.899 Varicose veins of unspecified lower extremity with other complications; I10 Essential (primary) hypertension; E78.00 Pure hypercholesterolemia, unspecified; E11.9 Type 2 diabetes mellitus without complications; J45.909 Unspecified asthma, uncomplicated; G45.9 Transient cerebral ischemic attack, unspecified; G45.1 Carotid artery syndrome (hemispheric); F17.210 Nicotine dependence, cigarettes, uncomplicated; Z79.82 Long term (current) use of aspirin; Z01.810 Encounter for preprocedural cardiovascular examination; Z79.899 Other long term (current) drug therapy; Z79.84 Long term (current) use of oral hypoglycemic drugs; Z88.0 Allergy status to penicillin; Z88.8 Allergy status to other drugs, medicaments and biological substances; Z88.1 Allergy status to other antibiotic agents; Z91.040 Latex allergy status
CPT/HCPCS: 80061; 85347; 93458; C1769; 99152; J1644; J2001; J2250; J2720; J3010

== ENCOUNTER 2018-02-21 07:09 | Day surgery (SDC) | payer MEDICARE, MEDICAID ==
[2018-02-18 12:48] VITALS: BMI 28.7
[2018-02-21] MEDS ORDERED: Fentanyl 100 MCG/2 ML VIAL ONE ×2 (07:24→09:12)
[2018-02-21] MEDS ORDERED: Ropivacaine 0.2% HCl/PF 20 ML ONE (07:24)
[2018-02-21] MEDS ORDERED: Midazolam HCl 2 mg/2 ml Vial ONE (07:24)
[2018-02-21] MEDS ORDERED: traMADol HCl 50 MG TAB PO PRN ×2 (09:16)
[2018-02-21] MEDS ORDERED: Zolpidem Tartrate 5 MG TAB PO PRN (09:16)
[2018-02-21] MEDS ORDERED: Promethazine HCl 25 MG/ML VIAL IM PRN (09:16)
[2018-02-21] MEDS ORDERED: Ondansetron HCl/PF 4 MG/2 ML Vial IVP PRN (09:16)
[2018-02-21] MEDS ORDERED: Ropivacaine HCl/PF 1,100 MG in Sodium Chloride 0.9% 440 ML NERVE BLCK SCH (09:16)
[2018-02-21] MEDS ORDERED: HYDROcodone/Acetaminophen 5/325 mg Tablet PO PRN ×2 (09:16)
[2018-02-21] MEDS ORDERED: Fentanyl 100 MCG/2 ML VIAL IV PRN (09:17)
[2018-02-21] MEDS ORDERED: Clindamycin/D5W 900 mg/50 ml Premix Bag ONE (09:46)
[2018-02-21] MEDS ORDERED: Sodium Chloride 0.9% 0 ML ONE (10:23)
[2018-02-21] MEDS ORDERED: Bupivacaine HCl 0.25%/Epi 0.0005/PF 10 ML VIAL FS ONE (10:23)
[2018-02-21] MEDS ORDERED: Phenylephrine HCL 10 MG/ML VIAL ONE (10:33)
[2018-02-21] MEDS ORDERED: Ropivacaine 0.2% HCl/PF (40 MG/20 ML VIAL) ONE (13:29)
[2018-02-21] MEDS ORDERED: Ropivacaine 0.5% HCl/PF (150 MG/30 ML VIAL) ONE (13:29)
[2018-02-21] MEDS ORDERED: Lidocaine 1% PF 5 ML VIAL ONE (15:03)
[2018-02-21] MEDS ORDERED: Glycopyrrolate 0.2 MG/ML 5 ML SYRINGE ONE (15:03)
[2018-02-21] MEDS ORDERED: Dexamethasone 20 MG/5 ML VIAL ONE (15:03)
[2018-02-21] MEDS ORDERED: Ondansetron HCl/PF 4 MG/2 ML Vial ONE (15:03)
[2018-02-21] MEDS ORDERED: Ketorolac Tromethamine 30 MG/ML VIAL ONE (15:03)
[2018-02-21] MEDS ORDERED: PHENYLEPHRINE-NS 100 MCG/ML 10 ML SYRINGE ONE (15:03)
[2018-02-21] MEDS ORDERED: PROPOFOL 200 MG/20 ML VIAL ONE (15:03)
--- NOTE | 2018-02-22 04:50 | OP ---
DATE OF OPERATION: 02/21/2018 PREOPERATIVE DIAGNOSES: Left shoulder with rotator cuff tear, SLAP tear, biceps tendonitis, and arth ritis of the acromioclavicular joint. POSTOPERATIVE DIAGNOSES: Left shoulder with rotator cuff tear, SLAP tear, biceps tendonitis, and art hritis of the acromioclavicular joint. PROCEDURE: Arthroscopy of the left shoulder with subacromial decompression, rotator cuff repair, SLA P repair, biceps tenotomy, and excision of the distal clavicle. SURGEON: Kamaljit Macias M.D. ANESTHESIA: General. TECHNIQUE: Patient had a supraclavicular block performed by Anesthesia prior to surgery. She was gi lizzy preoperative IV antibiotics, taken to the operating room, placed in the supine position. Satisfa ctory general anesthesia was performed. Patient was then placed in the right lateral decubitus posit ion. All bony prominences were well padded. Left upper extremity was placed in 15 pounds of tractio n. The left shoulder was sterilely prepped and draped in the usual fashion and the shoulder was arth roscoped through the usual posterior, anterior, lateral, and superior lateral portals. Upon entering the shoulder joint, patient was noted to have tendinitis of the biceps tendon. A shaver and a 90-de gree arthrowand was used to perform biceps tenotomy. There was tearing of the superior aspect of the labrum and this was repaired with the Arthrex 2.9 anchor and #2 FiberWire. This provided good fixat ion of the superior labrum. The anterior and posterior and inferior aspect of the labrum was intact. There were some cartilage tears in the superior aspect of the glenoid and this was smoothed down wi th the shaver. There was some synovitis, which was debrided also with shaver. The subacromial space was then entered. There was significant amount of synovitis and synovectomy was performed. There w as a large rotator cuff tear that was noted mainly from the supraspinatus tendon, part of the infrasp inatus tendon. This was repaired using Arthrex double-row PushLock anchors and FiberTape, this provi ded good repair of the rotator cuff. A high-speed sarmad was used to thin the undersurface of the acro mion and the high-speed sarmad was also used to take out the distal 1 cm of the clavicle. During the p rocedure, good hemostasis was maintained. The shoulder was copiously irrigated throughout the proced ure as well as the subacromial space. The instruments were then removed and the portals were closed with 3-0 Rapide. Patient was taken out of traction. Sterile dressing was applied. She was placed i n a shoulder immobilizer. She was placed in the supine position, awakened, extubated, and transferre d to recovery room in stable condition. ESTIMATED BLOOD LOSS: 20 mL. COMPLICATIONS: None.
== END 2018-02-21 14:38 | disposition home or self-care (01) ==
LOC: SDC 07:09
PROVIDERS: ATTEND Orthopaedic Surgery
PROC: 0LQ24ZZ Repair Left Shoulder Tendon, Percutaneous Endoscopic Approach (ICD-10-PCS; principal; 2018-02-21)
PROC: 0RNK4ZZ Release Left Shoulder Joint, Percutaneous Endoscopic Approach (ICD-10-PCS; 2018-02-21)
PROC: 0PBB4ZZ Excision of Left Clavicle, Percutaneous Endoscopic Approach (ICD-10-PCS; 2018-02-21)
PROC: 0MM24ZZ Reattachment of Left Shoulder Bursa and Ligament, Percutaneous Endoscopic Approach (ICD-10-PCS; 2018-02-21)
DX: M75.102 Unspecified rotator cuff tear or rupture of left shoulder, not specified as traumatic (principal); S43.432A Superior glenoid labrum lesion of left shoulder, initial encounter; M75.42 Impingement syndrome of left shoulder; M19.019 Primary osteoarthritis, unspecified shoulder; M75.22 Bicipital tendinitis, left shoulder; E78.00 Pure hypercholesterolemia, unspecified; I10 Essential (primary) hypertension; E11.9 Type 2 diabetes mellitus without complications; J45.909 Unspecified asthma, uncomplicated; Z88.0 Allergy status to penicillin; Z88.5 Allergy status to narcotic agent; Z88.8 Allergy status to other drugs, medicaments and biological substances; Z91.040 Latex allergy status
CPT/HCPCS: 29807; 29824; 29826; 29827; C1713 ×2; A4216; J1100; J1885; J2001; J2250; J2370; J2405; J2704; J2795; J3010; J3490; J7050

== ENCOUNTER 2018-03-16 08:33 | Outpatient (CLI) | payer MEDICARE, MEDICAID | END 2018-03-16 08:34 | disposition home or self-care (01) | LOC: BICULT 08:33 | PROVIDERS: ATTEND Family Medicine | DX: I65.21 Occlusion and stenosis of right carotid artery (principal) | CPT/HCPCS: 93880 ==

== ENCOUNTER 2018-09-20 01:57 | Inpatient (IN) | payer MEDICARE, MEDICAID ==
[2018-09-20 02:32] LABS: #Basophils 0.1 thou/uL (0.0-0.2); #Eosinphils 0.2 thou/uL (0.0-0.7); #Monocytes 0.7 thou/uL (0.11-0.59); #Neutrophils 4.6 thou/uL (1.40-6.50); %Basophils 0.7 % (0.0-1.0); %Eosinophils 1.8 % (0.0-10.0); %Lymphocytes 35.3 % (21.0-51.0); %Monocytes 8.2 % (0.0-10.0); Mean Corpuscular HGB CONC 32.4 g/dL (32.0-36.0); Mean Corpuscular Hemoglobin 29.5 pg (27.0-31.0); Mean Platelet Volume 7.7 fL (7.4-10.4); Platelet Count 190 thou/uL (130-400); RBC Distribution Width 12.6 % (11.5-14.5); Red Blood Cell (RBC) Count 3.72 mill/uL (4.20-5.40); White Blood Cell (WBC) Count 8.5 thou/uL (4.8-10.8)
[2018-09-20 02:54] LABS: ALT (SGPT) 16 U/L (8-55); AST (SGOT) 22 U/L (5-34); Albumin 3.7 g/dL (3.5-5.0); Alkaline Phosphatase 132 U/L (40-150); Anion Gap 16 mmol/L (10-20); BUN (Urea Nitrogen) 21 mg/dL (9.8-20.1); Bilirubin, Total 0.3 mg/dL (0.2-1.2); CK (CPK) 261 U/L (29-168); Calc. Creatinine Clearance 0 mL/min (70-130); Calcium 9.3 mg/dL (7.8-10.44); Carbon Dioxide 22 mmol/L (22-29); Chloride 106 mmol/L (98-107); Estimated GFR-MDRD 42; Globulin 3.3 g/dL (2.4-3.5); Glucose 181 mg/dL (70-105); Potassium 3.5 mmol/L (3.5-5.1); Sodium 140 mmol/L (136-145)
[2018-09-20] MEDS ORDERED: Aspirin 325 MG TAB ONE (03:01)
[2018-09-20 03:16] LABS: CKMB 2.3 ng/mL (0-6.6)
[2018-09-20] MEDS ORDERED: Melatonin 3 MG TAB PO SCH (03:45)
[2018-09-20] MEDS ORDERED: Bacitracin Zinc 1 Packet ONE (04:27)
[2018-09-20] MEDS ORDERED: Enoxaparin Sodium 80 MG/0.8 ML SYRINGE ONE (08:03)
--- NOTE | 2018-09-20 08:08 | RAD ---
PORTABLE CHEST 1 VIEW: Date: 09/20/18 Time: 0218 hours HISTORY: Chest pain, dizziness. FINDINGS/IMPRESSION: Comparison made with exam of 01/08/18. The heart size is borderline. The lungs are expanded without focal areas of consolidation, pneumothor aces, denezl pulmonary edema, or pleural effusions. There are postop changes of bilateral rotator cuff repair. POS: OFF
--- NOTE | 2018-09-20 08:28 | CT ---
PRELIMINARY REPORT/[facility]/EMERGENT[facility] AFTER-HOURS PROCEDURE CT Angiography Chest With Contrast EXAM DATE/TIME: 09/20/2018 3:06 AM CLINICAL HISTORY: 57 years old, female; Signs and symptoms; Shortness of breath; Patient HX: 57 yo female states that e arlier tonight she began to feel weak and dizzy. She states that it had been occurring over the last couple of days as well. She also notes that she has been coughing up small "blood clots. " patient states that she could feel her hr being high at the time of the event. She states she was given medic ation by ems and that resolved her symptoms other than her generalized weakness. TECHNIQUE: Axial computed tomographic angiography images of the chest with intravenous contrast using CT angiogr aphy protocol. MIP reconstructed images were created and reviewed. COMPARISON: No relevant prior studies available. FINDINGS: Pulmonary arteries: Normal. No pulmonary emboli. Aorta: Normal. No aortic aneurysm. No aortic dissection. Lungs: Normal. No consolidation. No masses. Pleural space: Normal. No pneumothorax. No pleural effusion. Heart: Normal. No cardiomegaly. No pericardial effusion. Mediastinum: Small hiatal hernia. Esophagus is unremarkable. Gallbladder and bile ducts: Prior cholecystectomy. Lymph nodes: Unremarkable. No enlarged lymph nodes. Bones/joints: Unremarkable. No acute fracture. Soft tissues: Unremarkable. IMPRESSION: No acute findings. Thank you for allowing us to participate in the care of your patient. Dictated and Authenticated by: Rafi Loera MD 09/20/2018 4:18 AM Central Time ([place] & [place]) FINAL REPORT CT PULMONARY ANGIOGRAM WITH IV CONTRAST AND 3D POSTPROCESSING: Date: 09/20/18 IMPRESSION: I agree with the preliminary report given by Herminio. POS: OFF
[2018-09-20] MEDS ORDERED: Ondansetron PF 4 MG/2 ML Vial IVP PRN (08:36)
[2018-09-20] MEDS ORDERED: Bisacodyl 10 MG SUPP PR PRN (08:36)
[2018-09-20] MEDS ORDERED: Nitroglycerin 0.4 MG TAB (25 Tab Bottle) SL PRN (08:36)
[2018-09-20] MEDS ORDERED: Benzonatate 100 MG CAP PO PRN (08:36)
[2018-09-20] MEDS ORDERED: hydrALAZINE 20 MG/ML VIAL SLOW IVP PRN (08:36)
[2018-09-20] MEDS ORDERED: Bisacodyl 5 MG TAB PO PRN (08:36)
[2018-09-20] MEDS ORDERED: Acetaminophen 500 MG TAB PO PRN (08:36)
[2018-09-20] MEDS ORDERED: cloNIDine 0.1 MG TAB PO PRN (08:36)
[2018-09-20] MEDS ORDERED: Senokot S 8.6-50 MG TAB PO PRN (08:36)
[2018-09-20] MEDS ORDERED: Dextrose 50% Abboject 50 ML SYRINGE SLOW IVP PRN (08:57)
[2018-09-20] MEDS ORDERED: Dextrose 5% in Water 1,000 ML IV PRN (08:57)
[2018-09-20] MEDS ORDERED: HumaLOG 300 UNITS/3 ML VIAL SC PRN ×2 (08:57)
[2018-09-20] MEDS ORDERED: Famotidine 20 MG TAB ONE (09:01)
[2018-09-20] MEDS ORDERED: ISOVUE-370 76%-LOCM 1 ML ONE (09:27)
[2018-09-20 09:38] LABS: CKMB 9.1 ng/mL (0-6.6)
[2018-09-20] MEDS ORDERED: Sodium Chloride 0.9% 1,000 ML IV SCH (10:30)
--- NOTE | 2018-09-20 11:15 | HP ---
PRIMARY CARE PHYSICIAN: Bridger Mayer DO CHIEF COMPLAINT: Chest tightness, palpitation, shortness of breath, and dizziness. HISTORY OF PRESENTING ILLNESS: Ms. Mari is a pleasant 57-year-old female with past medical history of "weak heart, who follows up with Dr. Garduno in the [facility] as well as znl-zyiikbi-eqhozwmwn diabetes, hypertension, and dyslipidemia, who presented to the emergency room with the above-mentioned complaint. History is mainly obtained by the patient herself and electronic medical records have been reviewed. Ms. Mari reports that she has been feeling fine up until last evening. She had sudden onset of weakness and dizziness associated with sharp discomfort in the chest and palpitations. She got short of breath. When her symptoms did not get any better, her family advised her to come to the emergency room. Upon presentation to the ER, her blood pressure was 142/89 with a pulse of 84. Reportedly she was found to be in SVT per the EMS and was given adenosine. Her initial heart rate was 180, which decreased to 114. I am not sure if she did receive one or two doses of adenosine, but it looks like she might have received 6 mg and then 12 mg of adenosine. At the time of my examination, she is feeling much better and her heart rate and blood pressure is under good control. She does report that she was told by Dr. Garduno that she has a weak heart and is currently on medications for it. She does have strong family history of coronary artery disease in her mother and her brother. She denies any other recent illnesses otherwise. She is in her usual health, otherwise. Denies any orthopnea, PND, shortness of breath or chest pain prior to the episode yesterday. She denies any fever, chills, diarrhea, or dysuria. No hematuria. No hematemesis or melena. PAST MEDICAL HISTORY: 1. Vqn-lykijuj-ekcbgswpp diabetes mellitus. 2. "Weak heart.". 3. Dyslipidemia. 4. Hypertension. 5. Chronic low back pain. 6. GERD. 7. History of peripheral arterial disease as per the [facility]. 8. Osteoarthritis. PAST SURGICAL HISTORY: L3-L4 lumbar decompression and left rotator cuff repair. ALLERGIES: INCLUDE PENICILLIN, MORPHINE, LISINOPRIL, AZITHROMYCIN AND LATEX. PSYCHIATRIC HISTORY: Reviewed and negative. FAMILY HISTORY: Positive for coronary artery disease in mother and brother. They both had massive heart attack according to the family. Hypertension run among several family members. SOCIAL HISTORY: She lives at home. No history of drug, tobacco, or alcohol abuse. HOME MEDICATIONS: They further need to be confirmed but as per records, she is on followin. Potassium chloride 10 mEq 4 times a day. 2. Gabapentin 600 mg three times a day. 3. Carvedilol 3.125, 3 times a day. 4. Atorvastatin 40 mg daily. 5. Amitriptyline 50 mg daily. 6. Celecoxib 100 mg daily. 7. Aspirin 81 mg daily. 8. Paroxetine 10 mg daily. 9. Lorazepam 1 mg at bedtime p.r.n. 10. Glimepiride 2 mg daily. 11. Lasix 40 mg daily. 12. Protonix 40 mg daily. REVIEW OF SYSTEMS: A 12-point review of system is done, it is negative except for those mentioned in the history and physical. LABORATORY DATA: Her CBC shows hemoglobin of 11.0, which seems to be baseline for her. Serum chemistries, creatinine of 1.55 with baseline creatinine being normal. Her CK-MB initially was 2.3 but got elevated to 9.1. Her initial troponin was 0.029, which went up to 1.084 and then 2.121. Her TSH is slightly high at 5.288 and her creatine kinase is mildly elevated to 261. Her 12-lead EKG by my review shows normal sinus rhythm at 86 beats per minute without any specific ST-T wave changes. Her QTc is prolonged to 485 milliseconds. EKG from the EMS is not available. CT angio of the thorax was done in the emergency room, which is negative for any pulmonary embolism or any acute findings. Chest x-ray once again is also negative for any evidence of infiltrate, edema, or effusion by my review. PHYSICAL EXAMINATION: VITAL SIGNS: Upon presentation, pulse of 86, respirations 15, temperature 97.5, saturating 99% on room air, respirations 18. GENERAL: No acute distress. Awake, alert, and oriented x3. Lying comfortably in bed. HEENT: Mucous membrane is moist and pink. No oropharyngeal exudate or erythema. Head is normocephalic, atraumatic. Pupils are equal and reactive to light and accommodation. Extraocular movement intact. NECK: Supple without any lymphadenopathy, JVD, or bruit. CHEST: Clear to auscultation without any wheezing, rales or rhonchi. HEART: Rate and rhythm are regular without any murmurs, rubs, or gallops. ABDOMEN: Soft, nontender, nondistended. Positive bowel sounds. EXTREMITIES: Free of any cyanosis, clubbing, or edema. NEUROLOGICAL: Nonfocal. SKIN: Free of any rashes or bruises, feels warm and dry to touch. PSYCHIATRIC: Normal affect. IMPRESSION AND PLAN: 1. Supraventricular tachycardia. The patient's supraventricular tachycardia was interrupted by administration of adenosine. She does give history of some underlying cardiomyopathy as she mentioned, "weak heart." We will repeat the echocardiogram and monitor her on telemetry. We will have Cardiology consultation as well. The patient has not had any cardiac catheterization in the past and may need one this time, especially given her underlying cardiomyopathy. She will be kept n.p.o. 2. Elevated troponin. Suspect demand ischemia at this time due to supraventricular tachycardia; however, non-ST elevation myocardial infarction can also not be ruled out. We will continue daily aspirin and give her one dose of Lovenox at 1 mg/kg dosing. She is currently otherwise hemodynamically stable. She will be started on a full dose aspirin for now. Echocardiogram has been ordered and we will repeat the troponin later in the day as well. Cardiology consultation has been requested as well. Restart her home medication of carvedilol and confirm the dose. The patient is currently otherwise asymptomatic and comfortable. 3. Acute renal insufficiency. The patient does have a mild acute renal insufficiency, most likely due to poor perfusion or dehydration. We will check her BNP and start her on gentle IV fluids. I do not see any evidence clinically to suggest any fluid overload at this time. The patient may or may not need cardiac catheterization and for this reason, IV fluids will be started as well. 4. High TSH. We will check T3 and T4, but in ideal situation, this needs to be followed up as an outpatient once the acute illness is over. 5. Eej-gcisklq-gxiqxjkgx diabetes mellitus. The patient is n.p.o., so we will hold her oral hypoglycemics for now and start her on an insulin sliding scale and monitor Accu-Chek a.c and at bedtime. 6. Dyslipidemia. The patient will be restarted on her home medications once confirmed. 7. Hypertension, currently well controlled. Restart her carvedilol and confirm the rest of the medications. 8. 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 9. DVT and GI prophylaxis will be added in the form of Pepcid b.i.d. and daily dose of Lovenox. She has gotten a therapeutic dose of Lovenox for now. DISPOSITION: The patient will be admitted to the hospital for SVT and non-ST elevation NV. Estimated length of stay at this time is at least 2 to 3 midnights. Further management will depend upon her clinical course. Job ID: [id number]
[2018-09-20 12:31] VITALS: BMI 31.4
[2018-09-20] MEDS: Enoxaparin Sodium 40 MG/0.4 ML SYRINGE SC SCH (13:08)
[2018-09-20] MEDS: Famotidine 20 MG TAB PO SCH ×2 (13:08→21:48)
[2018-09-20] MEDS: Carvedilol 3.125 MG TAB PO SCH ×3 (15:23→21:50)
[2018-09-20] MEDS ORDERED: Furosemide 40 MG TAB PO SCH (17:30)
[2018-09-20] MEDS ORDERED: Lorazepam 1 MG TAB PO PRN (21:00)
[2018-09-20] MEDS: Gabapentin 300 MG CAP PO SCH (21:48)
[2018-09-20] MEDS: Atorvastatin Calcium 40 MG TAB PO SCH (21:49)
[2018-09-20] MEDS: Amitriptyline HCl 25 MG TAB PO SCH (21:49)
[2018-09-20] MEDS: Melatonin 3 MG TAB PO PRN (23:21)
--- NOTE | 2018-09-20 23:56 | CON ---
DATE OF CONSULTATION: HISTORY OF PRESENT ILLNESS: Luba Mari is a 57-year-old black female, initially evaluated in January 2018. She has a history of having a rapid heartbeat up to 15 minutes, which has occurred over the last year. She would get that almost daily and would feel chest pressure with this. She was being evaluated prior to undergoing left shoulder surgery. EKG showed possible septal infarction in the past. She underwent echocardiography which revealed an ejection fraction of 40% to 45%. Nuclear stress test revealed a fixed apical defect. There was moderate apical and severe distal lateral hypokinesis. She wore a 30-day monitor, no specific arrhythmias were seen. She then underwent cardiac catheterization on February 04, 2018. She was found to have moderate global hypokinesis with ejection fraction of 35% to 40%. She had normal coronary arteries. She has been feeling well with current medications for left ventricular dysfunction until last night. She had sudden onset of weakness, dizziness, sharp discomfort in her chest and palpitations. Paramedics were called. She had a heart rate of approximately 180, was given adenosine and converted to sinus rhythm. She is now admitted for further evaluation. PAST MEDICAL HISTORY: 1. Diabetes mellitus. 2. Hypertension. 3. Hyperlipidemia. 4. Chronic low back pain. 5. Nonischemic cardiomyopathy with last ejection fraction on catheterization of 35% to 40%. 6. Gastroesophageal reflux disease. 7. Peripheral vascular disease. 8. Osteoarthritis. 9. History of upper extremity deep venous thrombosis in November 2012. PAST SURGICAL HISTORY: Left shoulder surgery, back surgery, radiofrequency ablation of the right and left great saphenous veins. CURRENT MEDICATIONS: 1. Elavil 50 mg at bedtime. 2. Aspirin 81 daily. 3. Atorvastatin 40 mg b.i.d. 4. Carvedilol 3.125 t.i.d. 5. Gabapentin 600 mg t.i.d. 6. Lasix 40 mg daily. 7. Amaryl 2 mg q.a.m. 8. Celebrex daily. 9. Lorazepam 1 mg p.r.n.. 10. Protonix 40 mg daily. 11. Paroxetine 10 mg daily. 12. KCl 10 mEq daily. 13. Ventolin inhaler p.r.n. ALLERGIES: LATEX, PENICILLIN, LISINOPRIL AND MORPHINE. SOCIAL HISTORY: Former smoker. She does not drink. REVIEW OF SYSTEMS: A 10-point review of systems is otherwise unremarkable. PHYSICAL EXAMINATION: VITAL SIGNS: Blood pressure 125/64, pulse of 84. HEENT: PERRL. NECK: Supple. CHEST: Clear. CARDIAC: S1 and S2 normal without any S3, S4, or murmurs. ABDOMEN: Normal bowel sounds without tenderness or organomegaly. EXTREMITIES: Revealed no clubbing, cyanosis, or edema. NEUROLOGIC: Grossly intact. SKIN: Warm and dry. IMAGING: EKG reveals normal sinus rhythm with poor R-wave progression. Nonspecific ST-segment changes. LABORATORY DATA: Hemoglobin 11.0, hematocrit 33.9, white count 8500, platelets 190,000. CK-MB 9.1, troponin I 2.121. Sodium 140, potassium 3.5, chloride 106, carbon dioxide 22, BUN 21, creatinine 1.55. One month ago, her creatinine was 0.99. TSH 5.2881. IMPRESSION: 1. Supraventricular tachycardia, which converted with intravenous adenosine. When I saw her in January, she complained of palpitations, however, 30-day monitor was unrewarding. But now, she presents with supraventricular tachycardia. 2. Nonischemic cardiomyopathy with ejection fraction of 35% to 40% on catheterization in January 2018. 3. Normal coronary arteries. 4. Demand ischemia. 5. Hypertension. 6. Hyperlipidemia. 7. Diabetes. 8. Former smoker. 9. History of upper extremity deep venous thrombosis in 2012. PLAN: Ms. Luba Mari will continue to be monitored. Consultation will be requested with Electrophysiology for catheter ablation. Job ID: [id number] MTDD
[2018-09-21 05:24] LABS: #Eosinphils 0.2 thou/uL (0.0-0.7); #Lymphocytes 2.2 thou/uL (1.20-3.40); #Monocytes 0.6 thou/uL (0.11-0.59); #Neutrophils 2.9 thou/uL (1.40-6.50); %Basophils 0.5 % (0.0-1.0); %Eosinophils 4.2 % (0.0-10.0); %Lymphocytes 36.6 % (21.0-51.0); %Monocytes 9.7 % (0.0-10.0); %Neutrophils 49.1 % (42.0-75.0); Hemoglobin 9.5 g/dL (12.0-16.0); Mean Corpuscular HGB CONC 32.2 g/dL (32.0-36.0); Mean Corpuscular Hemoglobin 29.3 pg (27.0-31.0); Mean Platelet Volume 7.6 fL (7.4-10.4); Platelet Count 180 thou/uL (130-400); RBC Distribution Width 12.6 % (11.5-14.5); Red Blood Cell (RBC) Count 3.23 mill/uL (4.20-5.40); White Blood Cell (WBC) Count 5.9 thou/uL (4.8-10.8)
[2018-09-21 05:48] LABS: Anion Gap 11 mmol/L (10-20); BUN (Urea Nitrogen) 15 mg/dL (9.8-20.1); Calc. Creatinine Clearance 73 mL/min (70-130); Calcium 9.1 mg/dL (7.8-10.44); Carbon Dioxide 27 mmol/L (22-29); Chloride 107 mmol/L (98-107); Estimated GFR-MDRD 64; Glucose 137 mg/dL (70-105); Potassium 3.8 mmol/L (3.5-5.1); Sodium 141 mmol/L (136-145)
[2018-09-21 05:53] LABS: Critical Call Chem Troponin I RESULT DECREASING
[2018-09-21 06:07] LABS: Free T4 (Free Thyroxine) 1.1 ng/dL (0.70-1.48)
[2018-09-21 06:11] LABS: CKMB 4.1 ng/mL (0-6.6)
[2018-09-21] MEDS ORDERED: Aspirin 325 MG TAB PO SCH (08:00)
[2018-09-21] MEDS: Furosemide 40 MG TAB PO SCH (09:35)
[2018-09-21] MEDS: PARoxetine 20 MG TAB PO SCH (09:36)
[2018-09-21] MEDS: Famotidine 20 MG TAB PO SCH ×2 (09:36→21:26)
[2018-09-21] MEDS: Atorvastatin Calcium 40 MG TAB PO SCH ×2 (09:36→21:26)
[2018-09-21] MEDS: Gabapentin 300 MG CAP PO SCH ×3 (09:37→21:25)
[2018-09-21] MEDS: Carvedilol 3.125 MG TAB PO SCH ×3 (09:38→21:25)
[2018-09-21] MEDS: Aspirin 81 mg Enteric Coated Tablet PO SCH (09:38)
[2018-09-21] MEDS: Potassium Chloride 10 MEQ TAB PO SCH (09:38)
[2018-09-21] MEDS: Glimepiride 2 MG TAB PO SCH (09:44)
[2018-09-21] MEDS: Enoxaparin Sodium 40 MG/0.4 ML SYRINGE SC SCH (10:38)
--- NOTE | 2018-09-21 12:54 | PDOC.PN ---
- Subjective Encounter Start Date: 09/21/18 Encounter Start Time: 12:52 Subjective: feels well. no more palpiitations -: no chest pain or SOB -: son at bedside.all Qs answered - Objective MAR Reviewed: Yes Vital Signs & Weight: Vital Signs (12 hours) Temp Pulse Resp BP Pulse Ox 09/21/18 11:50 98.2 F 86 16 132/61 100 09/21/18 08:15 98.3 F 87 20 127/59 L 99 09/21/18 04:09 97.7 F 83 18 114/66 98 Weight Weight 179 lb 1.6 oz I&O: 09/20/18 09/21/18 09/22/18 06:59 06:59 06:59 Intake Total 1890 Output Total 500 Balance 1390 Result Diagrams: 09/21/18 05:08 09/21/18 05:08 Additional Labs: Accuchecks 09/21/18 09/21/18 09/20/18 10:33 05:38 20:08 POC Glucose 116 H 138 H 116 H 09/20/18 16:41 POC Glucose 191 H Laboratory Tests 09/20/18 09/20/18 09/20/18 02:25 02:25 05:25 Troponin I 0.029 H 1.084 H* B-Natriuretic Peptide Free T4 Free T3 TSH 3rd Generation 5.2881 H 09/20/18 09/20/18 09/21/18 08:25 10:30 05:08 Troponin I 2.121 H* B-Natriuretic Peptide 128.2 H Free T4 1.10 Free T3 2.61 TSH 3rd Generation 09/21/18 05:08 Troponin I 0.660 H* B-Natriuretic Peptide Free T4 Free T3 TSH 3rd Generation Phys Exam - Physical Examination Constitutional: NAD HEENT: PERRLA, moist MMs, sclera anicteric, oral pharynx no lesions Neck: no nodes, no JVD, supple, full ROM Respiratory: no wheezing, no rales, no rhonchi, clear to auscultation bilateral Cardiovascular: RRR, no significant murmur, no rub Gastrointestinal: soft, non-tender, no distention, positive bowel sounds Musculoskeletal: no edema, pulses present Neurological: non-focal, normal sensation, moves all 4 limbs Psychiatric: normal affect, A&O x 3 Skin: no rash Dx/Plan (1) SVT (supraventricular tachycardia) Code(s): I47.1 - SUPRAVENTRICULAR TACHYCARDIA Status: Acute Comment: NSR now (2) Demand ischemia Code(s): I24.8 - OTHER FORMS OF ACUTE ISCHEMIC HEART DISEASE Status: Acute (3) GERD (gastroesophageal reflux disease) Code(s): K21.9 - GASTRO-ESOPHAGEAL REFLUX DISEASE WITHOUT ESOPHAGITIS Status: Chronic Qualifiers: (4) DM2 (diabetes mellitus, type 2) Status: Chronic Qualifiers: (5) HTN (hypertension) Code(s): I10 - ESSENTIAL (PRIMARY) HYPERTENSION Status: Chronic Qualifiers: (6) Non-ischemic cardiomyopathy Code(s): I42.8 - OTHER CARDIOMYOPATHIES Status: Chronic - Plan out of bed/ambulate, DVT proph w/SCDs HD stable. troponin trended down. -: EP eval today for possible ablation -: ECHO results pending * . Review of Systems - Review of Systems Constitutional: negative: fever, chills, sweats, weakness, malaise, other ENT: negative: Ear Pain, Ear Discharge, Nose Pain, Nose Discharge, Nose Congestion, Mouth Pain, Mouth Swelling, Throat Pain, Throat Swelling, Other Respiratory: negative: Cough, Dry, Shortness of Breath, Hemoptysis, SOB with Excertion, Pleuritic Pain, Sputum, Wheezing Cardiovascular: negative: chest pain, palpitations, orthopnea, paroxysmal nocturnal dyspnea, edema, light headedness, other Gastrointestinal: negative: Nausea, Vomiting, Abdominal Pain, Diarrhea, Constipation, Melena, Hematochezia, Other Genitourinary: negative: Dysuria, Frequency, Incontinence, Hematuria, Retention , Other Musculoskeletal: negative: Neck Pain, Shoulder Pain, Arm Pain, Back Pain, Hand Pain, Leg Pain, Foot Pain, Other Neurological: negative: Weakness, Numbness, Incoordination, Change in Speech, Confusion, Seizures, Other - Medications/Allergies Allergies/Adverse Reactions: Allergies Allergy/AdvReac Type Severity Reaction Status Date / Time latex Allergy Unknown Swollen Verified 09/20/18 12:47 Lips Penicillins Allergy Unknown Anxiety Verified 09/20/18 12:47 lisinopril Allergy FACIAL Verified 09/20/18 12:47 SWELLING morphine Allergy Nausea Verified 09/20/18 12:47 Medications: Current Medications Acetaminophen (Tylenol) 1,000 mg PO Q6H PRN PRN Reason: Mild Pain (1-3) Last Admin: 09/20/18 21:48 Dose: 1,000 mg Amitriptyline HCl (Elavil) 50 mg PO HS [facility] Last Admin: 09/20/18 21:49 Dose: 50 mg Aspirin (Ecotrin) 81 mg PO DAILY [facility] Last Admin: 09/21/18 09:38 Dose: 81 mg Atorvastatin Calcium (Lipitor) 40 mg PO BID [facility] Last Admin: 09/21/18 09:36 Dose: 40 mg Benzonatate (Tessalon) 100 mg PO Q6H PRN PRN Reason: Cough Bisacodyl (Dulcolax) 10 mg PO DAILYPRN PRN PRN Reason: Constipation Bisacodyl (Dulcolax) 10 mg TN DAILYPRN PRN PRN Reason: Constipation Carvedilol (Coreg) 3.125 mg PO TID [facility] Last Admin: 09/21/18 09:38 Dose: 3.125 mg Clonidine (Catapres) 0.1 mg PO Q4H PRN PRN Reason: SBP > 160____ Dextrose/Water (Dextrose 50%) 25 gm SLOW IVP PRN PRN PRN Reason: Hypoglycemia Enoxaparin Sodium (Lovenox) 40 mg SC 0900 [facility] Last Admin: 09/21/18 10:38 Dose: Not Given Famotidine (Pepcid) 20 mg PO BID [facility] Last Admin: 09/21/18 09:36 Dose: 20 mg Furosemide (Lasix) 40 mg PO DAILY [facility] Last Admin: 09/21/18 09:35 Dose: 40 mg Gabapentin (Neurontin) 600 mg PO TID [facility] Last Admin: 09/21/18 09:37 Dose: 600 mg Glimepiride (Amaryl) 2 mg PO QA-[facility] Last Admin: 09/21/18 09:44 Dose: Not Given Glucagon (Glucagon) 1 mg IM PRN PRN PRN Reason: Hypoglycemia Hydralazine HCl (Apresoline) 10 mg SLOW IVP Q4H PRN PRN Reason: SBP > 180 and HR < 70 Dextrose/Water (D5w) 1,000 mls @ 0 mls/hr IV .Q0M PRN PRN Reason: Hypoglycemia Insulin Human Lispro (Humalog) 0 units SC .MODERATE SLIDING SC PRN PRN Reason: Moderate Correctional Scale Last Admin: 09/20/18 17:11 Dose: 2 unit Insulin Human Lispro (Humalog) 0 units SC .BEDTIME SLIDING SC PRN PRN Reason: Bedtime Correctional Scale Lorazepam (Ativan) 1 mg PO HS PRN PRN Reason: Insomnia Melatonin (Melatonin) 9 mg PO HS PRN PRN Reason: Insomnia Last Admin: 09/20/18 23:21 Dose: 9 mg Nitroglycerin (Nitrostat) 0.4 mg SL Q5MIN PRN PRN Reason: Chest Pain Ondansetron HCl (Zofran) 4 mg IVP Q6H PRN PRN Reason: Nausea/Vomiting Pantoprazole Sodium (Protonix) 40 mg PO DAILY [facility] Last Admin: 09/21/18 09:38 Dose: 40 mg Paroxetine HCl (Paxil) 10 mg PO DAILY [facility] Last Admin: 09/21/18 09:36 Dose: 10 mg Potassium Chloride (Klor-Con 10) 10 meq PO DAILY [facility] Last Admin: 09/21/18 09:38 Dose: 10 meq Senna/Docusate Sodium (Senokot S) 2 tab PO BID PRN PRN Reason: Constipation Sodium Chloride (Flush - Normal Saline) 10 ml IVF Q12HR [facility] Last Admin: 09/21/18 09:45 Dose: 10 ml Sodium Chloride (Flush - Normal Saline) 10 ml IVF PRN PRN PRN Reason: Saline Flush Last Admin: 09/21/18 09:39 Dose: 10 ml
[2018-09-21] MEDS ORDERED: Lidocaine 1% PF 5 ML VIAL ONE (13:43)
[2018-09-21] MEDS ORDERED: PROPOFOL 200 MG/20 ML VIAL ONE ×2 (13:43)
[2018-09-21] MEDS ORDERED: Isoproterenol 0.2 MG/1 ML AMP ONE ×2 (15:26→15:27)
[2018-09-21] MEDS ORDERED: DOPamine 400 MG/D5W 250 ML 0 ML ONE (15:27)
[2018-09-21] MEDS ORDERED: Heparin 10,000 UNITS/1 ML VIAL ONE (15:31)
[2018-09-21] MEDS ORDERED: PROPOFOL 40 ML ONE (16:11)
[2018-09-21] MEDS ORDERED: Acetaminophen/Codeine 30-300mg Tablet PO PRN (18:15)
[2018-09-21] MEDS: Acetaminophen/Codeine 30-300mg Tablet PO PRN (19:33)
--- NOTE | 2018-09-21 20:41 | CON ---
DATE OF CONSULTATION: 09/21/2018 REFERRING PHYSICIAN: Dr. Randy Garduno. HISTORY OF PRESENT ILLNESS: I am seeing Mrs. 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 Her problems are: 1. Newly found SVT responding to adenosine. a. EKG suggestive of short RP tachycardia, possible AVNRT. 2. Chronic history of CHF and nonischemic cardiomyopathy. a. LVEF 35% to 40%. Left heart catheterization in the past in February 04, 2018, normal coronaries are seen. 3. Risk factors including diabetes, hypertension, and hyperlipidemia. 4. Peripheral vascular disease. 5. History of upper extremity DVT in November 2012. ALLERGIES: LATEX, PENICILLIN, LISINOPRIL, AND MORPHINE. MEDICATIONS: At home included: 1. Elavil. 2. Aspirin. 3. Lipitor. 4. Carvedilol. 5. Gabapentin. 6. Lasix. 7. Amaryl. 8. Celebrex. 9. Lorazepam. 10. Protonix. 11. Paroxetine. 12. KCL. 13. Ventolin. SUBJECTIVE: Mrs. Mari is here after an episode of rapid palpitations, she brought to the ER. This is a new symptom for her. She felt chest wall discomfort thus far with it. She was brought to the ER, found to have a heart rate 118 and has intermittent arrhythmia. She had some palpitations lasting up to 15 minutes for last year. She never passed out. No stroke-like symptoms. No neurological deficits. No angina. No fever, chills, or cough. Rest of 12-point system otherwise unremarkable. PAST MEDICAL HISTORY: As above. SOCIAL HISTORY: The patient denies smoking, EtOH, or drug abuse. She used to smoke in the past. PAST FAMILY HISTORY: Not contributory. OBJECTIVE DATA: VITAL SIGNS: Blood pressure 132/61, heart rate 86, respirations 16, and temperature 98.2 degrees Fahrenheit. GENERAL: Alert and oriented woman, in no apparent distress. NECK: Supple. Jugular veins not distended. CHEST: Coarse with crackles. HEART: Sounds are regular to rate and rhythm. No murmur or gallop. ABDOMEN: Benign. Bowel sounds positive. EXTREMITIES: Lower extremities without edema, clubbing, or cyanosis. Pulses are adequate. NEUROLOGIC: The patient is nonfocal. MUSCULOSKELETAL: Without joint swelling or deformity. SKIN: Without rash. DATABASE: EKG is reviewed revealing a narrow complex SVT up to 180 beats per minute with P-wave possibly buried in the terminal portion of the QRS, which promptly terminated with adenosine administration. Subsequent EKGs revealed normal sinus rhythm, narrow QRS. LABORATORY DATA: White cell count is 5.9, hemoglobin 9.5 today, platelet count is 180. Sodium 141, potassium 3.8, BUN is 15, creatinine 1.06. Troponin I is 0.66 , previous 2.12, prior to this is 1.084. The chest x-ray shows no acute findings. CT of the chest from yesterday shows no pulmonary emboli, small hiatal hernia. No cardiomegaly or pericardial effusion. ASSESSMENT AND PLAN: Mrs. Mari is a pleasant 57-year-old woman with history as above. No prior history of arrhythmias, but palpitations for last year. She is not have well documented supraventricular tachycardia, which terminated with adenosine. 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 I discussed the potential treatment options with her, which could include medications versus ablation procedure. She prefers a more definitive approach. Discussed risks of bleeding, tamponade, bradycardic during pacing recurrences. She understands, willing to proceed. 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 History of LV dysfunction without evidence for arrhythmias might assess ventricular inducibility as well. Redo 2D echo will be requested periodically. Job ID: [id number] MTDD
[2018-09-21] MEDS: Melatonin 3 MG TAB PO PRN (21:25)
[2018-09-21] MEDS: Cephalexin 250 MG CAP PO SCH (21:25)
[2018-09-21] MEDS: Amitriptyline HCl 25 MG TAB PO SCH (21:25)
--- NOTE | 2018-09-21 23:08 | OP ---
DATE OF PROCEDURE: 09/21/2018 PROCEDURES PERFORMED: Electrophysiology study and radiofrequency ablation. REASON FOR PROCEDURE: Ms. Mari is a 57-year-old woman with history of CHF, possibly ischemic cardiomyopathy, LVEF about 35% to 40% in the past. She presented with a narrow complex SVT with very short RP interval suggestive of AVNRT, which was adenosine-terminable. DESCRIPTION OF PROCEDURE: The patient received propofol by Anesthesia specialist. After adequate level of sedation achieved, the left and right femoral veins were prepped, draped, and anesthetized using subcutaneous lidocaine. Under ultrasound guidance, the veins were cannulated. 6 and 8-Macanese sheaths were introduced into the left side and 8-Macanese sheath on the right side. Through these, a decapolar catheter was advanced to the CS position and octapolar catheter was advanced to the right ventricle, His bundle, and right atrial position. Pacing, mapping, and recording were performed at each location. Following findings were noted. Baseline rhythm was sinus rhythm at 750 milliseconds, NH 172, QRS 176 milliseconds, QT is 412 milliseconds, AH 110 milliseconds, HV 48 milliseconds noted. AV Wenckebach cycle was 350 milliseconds with retrograde Wenckebach cycle length 390 milliseconds. Concentric retrograde VA conduction was seen. Atrial extrastimuli testing yielded AV ERP at 600/260 milliseconds. AV choco ERP was less than that, but did not measure due to noncapture. No definite dual AV choco physiology was seen at this stage. Burst atrial pacing was performed and induced short echo beats only. Isuprel was initiated and burst atrial pacing was again delivered. At this point, though we were able to induce a narrow complex reentry type tachycardia which had very short VA timing but before further starting it, it deteriorated into atrial fibrillation in the course of atypical atrial flutter. Eventually, this rhythm was shock terminated with 50 joule shocks. The narrow complex SVT though was very typical for AV choco reentry tachycardia, decision was made to perform slow pathway modification. With a 4 mm standard ablation catheter, the right atrial 3D map was obtained, delineating the His bundle at CS locations. At the slow pathway area, repeat ablation was performed with total of five lesions placed at total duration of 4 minutes and 11 seconds. The smith average 36 alexandra, maximum 42 alexandra noted. Maximum temperature was 54 degree Celsius. Average temperature was 42 degree Celsius. During the last burn, we were able to deliver a minute of ablation with junctional beats noted throughout this final burn. Following that, further testing was performed. Isuprel was restarted. Burst atrial pacing was not able to induce any further arrhythmia. At this point, also access to my testing was performed with [address] decremented to the refractory period. With up to three ventricular extrastimuli delivered, these maneuver were also induced on a short nonsustained ventricular tachycardia but no sustained ventricular tachycardia was seen. CONCLUSION: 1. Typical inducible AV choco reentry tachycardia, which showed degenerated under Isuprel into atrial fibrillation. 2. Sustained atrial fibrillation/atypical atrial flutter requiring cardioversion. 3. Slow pathway modification, eliminating inducibility of arrhythmias. 4. Ventricular extrastimuli testing did not induce sustained ventricular tachycardia. PLAN: Routine postop care. Monitor LV dysfunction. Consider ICD if LVEF less than 35% noted in the future. Job ID: [id number] MTDD
[2018-09-22] MEDS: Acetaminophen/Codeine 30-300mg Tablet PO PRN ×2 (00:26→12:43)
[2018-09-22] MEDS: PARoxetine 20 MG TAB PO SCH (08:58)
[2018-09-22] MEDS: Atorvastatin Calcium 40 MG TAB PO SCH (08:59)
[2018-09-22] MEDS: Furosemide 40 MG TAB PO SCH (08:59)
[2018-09-22] MEDS: Potassium Chloride 10 MEQ TAB PO SCH (09:00)
[2018-09-22] MEDS: Carvedilol 3.125 MG TAB PO SCH ×2 (09:00→15:31)
[2018-09-22] MEDS: Cephalexin 250 MG CAP PO SCH ×2 (09:01→15:30)
[2018-09-22] MEDS: Enoxaparin Sodium 40 MG/0.4 ML SYRINGE SC SCH (09:01)
[2018-09-22] MEDS: Glimepiride 2 MG TAB PO SCH (09:01)
[2018-09-22] MEDS: Aspirin 81 mg Enteric Coated Tablet PO SCH (09:05)
[2018-09-22] MEDS: Gabapentin 300 MG CAP PO SCH ×2 (09:06→15:30)
[2018-09-22] MEDS: Famotidine 20 MG TAB PO SCH (09:12)
--- NOTE | 2018-09-22 12:46 | PDOC.CTH ---
Cardiology Progress Note - Subjective EP PROGRESS NOTE: 09/22/18 Seen as follow up for SVT after EP study and ablation yesterday. Feels well today. Eager to go home if able. No pain or bleeding at groin sheath site. No heart racing, palpitations, chest pain/pressure, stroke like symptoms, dizziness, vision changes, or speech changes. - Objective Vital Signs Temp Pulse Resp BP Pulse Ox 09/22/18 12:36 97.8 F 87 18 120/57 L 99 09/22/18 08:55 98.0 F 78 18 107/56 L 99 09/22/18 04:06 98.0 F 78 15 107/56 L 92 L Weight 170 lb 14.4 oz 09/21/18 09/22/18 09/23/18 06:59 06:59 06:59 Intake Total 1890 1750 Output Total 500 3150 Balance 1390 -1400 - Physical Examination General/Neuro: alert & oriented x3, NAD Neck: carotid US brisk, no JVD present Lungs: CTA, unlabored respirations Heart: PMI normal, RRR Abdomen: NT/ND, soft - Telemetry Telemetry Rhythm: SR - Labs Result Diagrams: 09/21/18 05:08 09/21/18 05:08 Troponin/CKMB CK-MB (CK-2) 4.1 ng/mL (0-6.6) 09/21/18 05:08 Troponin I 0.660 ng/mL (< 0.028) H* 09/21/18 05:08 - Assessment/Plan 1. SVT -s/p EP study and ablation for AVNRT. 2. Non ischemic cardiomyopathy - EF 35-40% by echo January 2018 3. PVD 4. Hx of DVT in Upper extremity. November 2012 Rhythm stable after ablation for AVNRT yesterday. Not inducible for VT. Continue following EF and consideration for ICD if EF <35%. Will discuss with Dr Garduno.
--- NOTE | 2018-09-22 14:07 | PDOC.PN ---
- Subjective Encounter Start Date: 09/22/18 Encounter Start Time: 14:05 Subjective: feels well. s/p ablation and denies any CP/palpitations/SOB - Objective MAR Reviewed: Yes Vital Signs & Weight: Vital Signs (12 hours) Temp Pulse Resp BP Pulse Ox 09/22/18 12:36 97.8 F 87 18 120/57 L 99 09/22/18 08:55 98.0 F 78 18 107/56 L 99 09/22/18 08:50 98 09/22/18 04:06 98.0 F 78 15 107/56 L 92 L Weight Weight 170 lb 14.4 oz I&O: 09/21/18 09/22/18 09/23/18 06:59 06:59 06:59 Intake Total 1890 1750 Output Total 500 3150 Balance 1390 -1400 Result Diagrams: 09/21/18 05:08 09/21/18 05:08 Additional Labs: Accuchecks 09/22/18 09/22/18 09/21/18 10:47 05:28 20:53 POC Glucose 126 H 138 H 138 H Phys Exam - Physical Examination Constitutional: NAD HEENT: PERRLA, moist MMs, sclera anicteric, oral pharynx no lesions Neck: no nodes, no JVD, supple, full ROM Respiratory: no wheezing, no rales, no rhonchi, clear to auscultation bilateral Cardiovascular: RRR, no significant murmur, no rub Gastrointestinal: soft, non-tender, no distention, positive bowel sounds Musculoskeletal: no edema, pulses present Neurological: non-focal, normal sensation, moves all 4 limbs Psychiatric: normal affect, A&O x 3 Skin: no rash Dx/Plan (1) SVT (supraventricular tachycardia) Code(s): I47.1 - SUPRAVENTRICULAR TACHYCARDIA Status: Acute Comment: NSR now.s/p ablation 07/22/19 (2) Demand ischemia Code(s): I24.8 - OTHER FORMS OF ACUTE ISCHEMIC HEART DISEASE Status: Acute (3) GERD (gastroesophageal reflux disease) Code(s): K21.9 - GASTRO-ESOPHAGEAL REFLUX DISEASE WITHOUT ESOPHAGITIS Status: Chronic Qualifiers: (4) DM2 (diabetes mellitus, type 2) Status: Chronic Qualifiers: (5) HTN (hypertension) Code(s): I10 - ESSENTIAL (PRIMARY) HYPERTENSION Status: Chronic Qualifiers: (6) Non-ischemic cardiomyopathy Code(s): I42.8 - OTHER CARDIOMYOPATHIES Status: Chronic - Plan awaiting repeat ECHO results to see if she needs AICD -: if EF adequate,will DC home w OP cardiology f/u -: HD stable -: meds as below * . Review of Systems - Review of Systems Constitutional: negative: fever, chills, sweats, weakness, malaise, other ENT: negative: Ear Pain, Ear Discharge, Nose Pain, Nose Discharge, Nose Congestion, Mouth Pain, Mouth Swelling, Throat Pain, Throat Swelling, Other Respiratory: negative: Cough, Dry, Shortness of Breath, Hemoptysis, SOB with Excertion, Pleuritic Pain, Sputum, Wheezing Cardiovascular: negative: chest pain, palpitations, orthopnea, paroxysmal nocturnal dyspnea, edema, light headedness, other Gastrointestinal: negative: Nausea, Vomiting, Abdominal Pain, Diarrhea, Constipation, Melena, Hematochezia, Other Genitourinary: negative: Dysuria, Frequency, Incontinence, Hematuria, Retention , Other Musculoskeletal: negative: Neck Pain, Shoulder Pain, Arm Pain, Back Pain, Hand Pain, Leg Pain, Foot Pain, Other Neurological: negative: Weakness, Numbness, Incoordination, Change in Speech, Confusion, Seizures, Other - Medications/Allergies Allergies/Adverse Reactions: Allergies Allergy/AdvReac Type Severity Reaction Status Date / Time latex Allergy Unknown Swollen Verified 09/20/18 12:47 Lips Penicillins Allergy Unknown Anxiety Verified 09/20/18 12:47 lisinopril Allergy FACIAL Verified 09/20/18 12:47 SWELLING morphine Allergy Nausea Verified 09/20/18 12:47 Medications: Current Medications Acetaminophen (Tylenol) 1,000 mg PO Q6H PRN PRN Reason: Mild Pain (1-3) Last Admin: 09/20/18 21:48 Dose: 1,000 mg Acetaminophen/Codeine Phosphate (Tylenol #3) 1 tab PO Q4H PRN PRN Reason: Mild Pain (1-3) Acetaminophen/Codeine Phosphate (Tylenol #3) 2 tab PO Q4H PRN PRN Reason: Moderate Pain (4-6) Last Admin: 09/22/18 12:43 Dose: 2 tab Amitriptyline HCl (Elavil) 50 mg PO HS [facility] Last Admin: 09/21/18 21:25 Dose: 50 mg Aspirin (Ecotrin) 81 mg PO DAILY [facility] Last Admin: 09/22/18 09:05 Dose: 81 mg Atorvastatin Calcium (Lipitor) 40 mg PO BID [facility] Last Admin: 09/22/18 08:59 Dose: 40 mg Benzonatate (Tessalon) 100 mg PO Q6H PRN PRN Reason: Cough Bisacodyl (Dulcolax) 10 mg PO DAILYPRN PRN PRN Reason: Constipation Bisacodyl (Dulcolax) 10 mg OR DAILYPRN PRN PRN Reason: Constipation Carvedilol (Coreg) 3.125 mg PO TID [facility] Last Admin: 09/22/18 09:00 Dose: 3.125 mg Cephalexin (Keflex) 250 mg PO TID [facility] Stop: 10/01/18 15:01 Last Admin: 09/22/18 09:01 Dose: 250 mg Clonidine (Catapres) 0.1 mg PO Q4H PRN PRN Reason: SBP > 160____ Dextrose/Water (Dextrose 50%) 25 gm SLOW IVP PRN PRN PRN Reason: Hypoglycemia Enoxaparin Sodium (Lovenox) 40 mg SC 0900 [facility] Last Admin: 09/22/18 09:01 Dose: 40 mg Famotidine (Pepcid) 20 mg PO BID [facility] Last Admin: 09/22/18 09:12 Dose: Not Given Furosemide (Lasix) 40 mg PO DAILY [facility] Last Admin: 09/22/18 08:59 Dose: 40 mg Gabapentin (Neurontin) 600 mg PO TID [facility] Last Admin: 09/22/18 09:06 Dose: 600 mg Glimepiride (Amaryl) 2 mg PO QA-[facility] Last Admin: 09/22/18 09:01 Dose: 2 mg Glucagon (Glucagon) 1 mg IM PRN PRN PRN Reason: Hypoglycemia Hydralazine HCl (Apresoline) 10 mg SLOW IVP Q4H PRN PRN Reason: SBP > 180 and HR < 70 Dextrose/Water (D5w) 1,000 mls @ 0 mls/hr IV .Q0M PRN PRN Reason: Hypoglycemia Insulin Human Lispro (Humalog) 0 units SC .MODERATE SLIDING SC PRN PRN Reason: Moderate Correctional Scale Last Admin: 09/20/18 17:11 Dose: 2 unit Insulin Human Lispro (Humalog) 0 units SC .BEDTIME SLIDING SC PRN PRN Reason: Bedtime Correctional Scale Lorazepam (Ativan) 1 mg PO HS PRN PRN Reason: Insomnia Melatonin (Melatonin) 9 mg PO HS PRN PRN Reason: Insomnia Last Admin: 09/21/18 21:25 Dose: 9 mg Nitroglycerin (Nitrostat) 0.4 mg SL Q5MIN PRN PRN Reason: Chest Pain Ondansetron HCl (Zofran) 4 mg IVP Q6H PRN PRN Reason: Nausea/Vomiting Pantoprazole Sodium (Protonix) 40 mg PO DAILY [facility] Last Admin: 09/22/18 09:11 Dose: 40 mg Paroxetine HCl (Paxil) 10 mg PO DAILY [facility] Last Admin: 09/22/18 08:58 Dose: 10 mg Potassium Chloride (Klor-Con 10) 10 meq PO DAILY [facility] Last Admin: 09/22/18 09:00 Dose: 10 meq Senna/Docusate Sodium (Senokot S) 2 tab PO BID PRN PRN Reason: Constipation Last Admin: 09/22/18 12:58 Dose: 2 tab Sodium Chloride (Flush - Normal Saline) 10 ml IVF Q12HR SARAH Last Admin: 09/22/18 09:06 Dose: 10 ml Sodium Chloride (Flush - Normal Saline) 10 ml IVF PRN PRN PRN Reason: Saline Flush Last Admin: 09/21/18 09:39 Dose: 10 ml Sodium Chloride (Flush - Normal Saline) 10 ml IVF PRN PRN PRN Reason: Saline Flush
[2018-09-22 15:30] VITALS: BP 129/69; TEMP 98.6
--- NOTE | 2018-09-23 10:10 | PQF ---
CLINICAL DOCUMENTATION IMPROVEMENT CLARIFICATION FORM: ICD-10 Updated PLEASE DO AN ADDENDUM TO THE PROGRESS NOTE WITH ANY DOCUMENTATION UPDATES OR ADDITIONS AND CARRY THROUGH TO DC SUMMARY. THANK YOU. DATE: 09/23/18 ATTN: DR. EAST Please exercise your independent, professional judgment in responding to the clarification form. Clinical indicators are provided on the bottom of this form for your review Please check appropriate box(s): HEART FAILURE: A. TYPE: [ X ] Systolic / HFrEF [ ] Diastolic / HFpEF [ ] Combined Systolic / Diastolic [ X] Other diagnosis _Chronic non ischemic cardiomyopathy [ ] Unable to determine In addition, please specify: Present on Admission (POA): [ ] Yes [ X] No [ ] Unable to determine For continuity of documentation, please document condition throughout progress notes and discharge summary. Thank You. CLINICAL INDICATORS - SIGNS / SYMPTOMS / LABS CONSULTATION NOTE: "CHRONIC HISTORY OF CHF AND NONISCHEMIC CARDIOMYOPATHY" "LVEF 35% TO 45%" HFS631.2 RISKS HTN SVT H/O CARDIOMYOPATHY TREATMENT: CARDIAC MONITORING ECHOCARDIOGRAM CARVEDILOL LASIX (This form is maintained as a part of the permanent medical record) 2014 [employer]. All Rights Reserved [email or web address] [email or web address] Office: [phone] [facility]
--- NOTE | 2018-09-23 13:55 | DIS ---
DATE OF ADMISSION: 09/20/2018 DATE OF DISCHARGE: 09/22/2018 DISCHARGE DIAGNOSES: 1. Supraventricular tachycardia, status post ablation. 2. Demand ischemia. 3. Gastroesophageal reflux disease. 4. Diabetes type 2. 5. Hypertension. 6. Ischemic cardiomyopathy, AICD in place. DISCHARGE MEDICATIONS: 1. Aspirin 81 mg daily. 2. Ventolin inhaler as needed. 3. Elavil 50 mg daily. 4. Paxil 10 mg daily. 5. Carvedilol 1 tablet 3.125 mg p.o. t.i.d. 6. Ativan p.r.n. 7. Protonix 40 mg daily. 8. Lasix 20 mg daily. 9. Lipitor 40 mg p.o. b.i.d. 10. Glimepiride 2 mg daily. 11. Gabapentin 600 t.i.d. 12. Potassium chloride 10 mEq daily. IN-HOUSE CONSULTATION: 1. Cardiology, Dr. Garduno. 2. Electrophysiology, Dr. Edmonds. PROCEDURES DONE IN THE HOSPITAL: 1. CT angio of the thorax upon presentation, which did not show any evidence of pulmonary embolism or any other acute findings. 2. Echocardiogram which shows ejection fraction same as prior 35% to 40% with diastolic dysfunction. 3. Ablation for supraventricular tachycardia on 09/21/2018 with electrophysiology study by Dr. Edmonds. HISTORY OF PRESENTING ILLNESS: Ms. Mari is a pleasant 57-year-old female with known history of nonischemic cardiomyopathy, who presented to the emergency room with complaints of palpitations and was found to be in SVT, which was aborted by adenosine by the EMS. She has known history of EF of 35% to 40% with normal coronaries and sees Dr. Garduno in the outpatient setting. Upon admission, she had elevated troponin to 2.12. EKG showed normal sinus rhythm with poor R-wave progression, nonspecific ST-segment changes. Please see admission history and physical for further details. HOSPITAL COURSE: Cardiology was consulted and Dr. Garduno saw the patient and he advised that she be seen by electrophysiology. Dr. Edmonds was consulted. He saw the patient and he agreed that the patient will benefit from ablation. She had no more episodes of SVT while in the hospital. She was continued on her beta opal. Echocardiogram was repeated and the EF was the same as prior echocardiogram. On the day of discharge, the patient is status post ablation and has been feeling well and eager to go home. She has been cleared for discharge both from Cardiology and EP. She was seen and examined prior to discharge. Please see hospitalist progress note from the date of discharge for further details including [id number] interaction. PRIMARY CARE PHYSICIAN: Bridger Mayer, DO DISCHARGE INSTRUCTIONS: The patient is instructed to follow up with Cardiology and Electrophysiology as well as primary care physician in the outpatient setting and she verbalized understanding. TIME SPENT: Total time spent in the discharge, 32 minutes. Job ID: [id number]
--- NOTE | 2018-09-23 15:57 | PQF ---
CLINICAL DOCUMENTATION IMPROVEMENT CLARIFICATION FORM: ICD-10 Updated PLEASE DO AN ADDENDUM TO THE PROGRESS NOTE WITH ANY DOCUMENTATION UPDATES OR ADDITIONS AND CARRY THROUGH TO DC SUMMARY. THANK YOU. DATE: 09/23/18 ATTN: DR. ESAT Please exercise your independent, professional judgment in responding to the clarification form. Clinical indicators are provided on the bottom of this form for your review Please check appropriate box(s): AMI TYPE: [ X ] DEMAND ISCHEMIA D/T SVT [ ] VT TYPE 2 D/T SVT [ ] Other diagnosis [ ] Unable to determine In addition, please specify: Present on Admission (POA): [ X] Yes [ ] No [ ] Unable to determine CLINICAL INDICATORS - SIGNS / SYMPTOMS / LABS TROPONINS 0.029 / 1.084 / 2.121 / 0.660 RISKS: SVT HTN NONISCHEMIC CARDIOMYOPATHY TREATMENT: CARDIOLOGY CONSULT EPS WITH RFA (This form is maintained as a part of the permanent medical record) 2014 [employer]. All Rights Reserved [email or web address] Office: [phone] [facility]
== END 2018-09-22 19:57 | disposition home or self-care (01) | DRG 274 ==
LOC: ERS 01:57 → ERHOLD 04:12 → 2NO 12:15
PROVIDERS: ADMIT Family Medicine; ATTEND Family Medicine
PROC: 4A023FZ Measurement of Cardiac Rhythm, Percutaneous Approach (ICD-10-PCS; principal; 2018-09-21)
PROC: 02583ZZ Destruction of Conduction Mechanism, Percutaneous Approach (ICD-10-PCS; 2018-09-21)
PROC: 4A0234Z Measurement of Cardiac Electrical Activity, Percutaneous Approach (ICD-10-PCS; 2018-09-21)
DX: I47.1 Supraventricular tachycardia (principal); I24.8 Other forms of acute ischemic heart disease; I50.20 Unspecified systolic (congestive) heart failure; E78.5 Hyperlipidemia, unspecified; E11.51 Type 2 diabetes mellitus with diabetic peripheral angiopathy without gangrene; K21.9 Gastro-esophageal reflux disease without esophagitis; Z87.891 Personal history of nicotine dependence; Z86.718 Personal history of other venous thrombosis and embolism; I11.0 Hypertensive heart disease with heart failure; I25.5 Ischemic cardiomyopathy
CPT/HCPCS: 36415; 36416; 71045; 71275; 76942; 80048; 80053; 82550; 82553; 83880; 84439; 84443; 84481; 84484; 85025; 92960; 93005; 93010; 93306; 93613; 93621; 93623; 93653; 96360; 96361; 96372; C1730; C1769; J1265; J1644; J1650; J2001; J2704; Q9966

== ENCOUNTER 2018-11-29 07:10 | Observation (INO) | payer MEDICARE, MEDICAID ==
--- NOTE | 2018-11-29 07:51 | CT ---
CT HEAD WITHOUT IV CONTRAST COMPARISON: 09/02/2017 HISTORY: Headache and right arm tingling. TECHNIQUE: Axial CT imaging at 5 mm intervals from vertex through skull base without contrast FINDINGS: There is no evidence of an acute infarction, hemorrhage, mass effect, or midline shift. The ventricul ar system is normal in size, shape, and position. Visualized paranasal sinuses are clear. Osseous structures appear intact. CT of the head is overall stable when compared to prior exam. IMPRESSION: 1. No acute intracranial abnormality demonstrated.
[2018-11-29 07:58] LABS: Bilirubin Negative (Negative); Blood, Urine Negative (Negative); Clarity CLEAR (Clear); Glucose, Urine (Dipstick) Negative (Negative); Leukocyte Negative (Negative); Nitrite Negative (Negative); Protein, Urine (Dipstick) Negative (Neg-Trace); Urobilinogen 0.2 mg/dL (0.2-1.0); pH, Urine 5.5 (5.0-9.0)
--- NOTE | 2018-11-29 08:03 | RAD ---
ONE VIEW CHEST: COMPARISON: 09/20/2018. HISTORY: Pain. FINDINGS: Slight elongation of the aorta. Upper normal cardiac silhouette. Pulmonary vessels and hilum are no rmal. Costophrenic angles are clear. No masses or consolidation. No pneumothorax or osseous abnorm alities. IMPRESSION: No acute cardiopulmonary process. POS: TAO
[2018-11-29 08:11] LABS: #Basophils 0.1 thou/uL (0.0-0.2); #Eosinphils 0.2 thou/uL (0.0-0.7); #Lymphocytes 2.8 thou/uL (1.20-3.40); #Monocytes 0.6 thou/uL (0.11-0.59); #Neutrophils 4.5 thou/uL (1.40-6.50); %Basophils 1.4 % (0.0-1.0); %Eosinophils 2.9 % (0.0-10.0); %Lymphocytes 33.4 % (21.0-51.0); %Monocytes 7.3 % (0.0-10.0); %Neutrophils 54.9 % (42.0-75.0); Hemoglobin 10.3 g/dL (12.0-16.0); Mean Corpuscular HGB CONC 32.4 g/dL (32.0-36.0); Mean Corpuscular Hemoglobin 29.1 pg (27.0-31.0); Mean Corpuscular Volume 89.8 fL (78.0-98.0); Mean Platelet Volume 7.7 fL (7.4-10.4); Platelet Count 219 thou/uL (130-400); RBC Distribution Width 12.4 % (11.5-14.5); Red Blood Cell (RBC) Count 3.54 mill/uL (4.20-5.40); White Blood Cell (WBC) Count 8.3 thou/uL (4.8-10.8)
[2018-11-29 08:29] LABS: ALT (SGPT) 10 U/L (8-55); AST (SGOT) 19 U/L (5-34); Albumin 3.9 g/dL (3.5-5.0); Alkaline Phosphatase 138 U/L (40-150); Anion Gap 12 mmol/L (10-20); BUN (Urea Nitrogen) 12 mg/dL (9.8-20.1); Bilirubin, Total 0.5 mg/dL (0.2-1.2); Calc. Creatinine Clearance 0 mL/min (70-130); Calcium 9.3 mg/dL (7.8-10.44); Carbon Dioxide 26 mmol/L (22-29); Chloride 109 mmol/L (98-107); Estimated GFR-MDRD 71; Globulin 2.7 g/dL (2.4-3.5); Glucose 85 mg/dL (70-105); Potassium 3.9 mmol/L (3.5-5.1); Protein, Total 6.6 g/dL (6.0-8.3); Sodium 143 mmol/L (136-145)
[2018-11-29] MEDS ORDERED: Aspirin Chewable 81 MG TAB ONE (08:37)
[2018-11-29] MEDS ORDERED: Bisacodyl 10 MG SUPP PR PRN (09:18)
[2018-11-29] MEDS ORDERED: Acetaminophen 325 MG TAB PO PRN (09:18)
[2018-11-29] MEDS ORDERED: Ondansetron PF 4 MG/2 ML Vial IVP PRN (09:18)
--- NOTE | 2018-11-29 10:45 | HP ---
PRIMARY CARE PROVIDER: Bridger Mayer DO CHIEF COMPLAINT: Right upper extremity weakness and tingling. HISTORY OF PRESENT ILLNESS: Ms. Mari is a pleasant 58-year-old lady, who was seen at [facility] on November 29, 2018. She was hospitalized at this facility from September 20 to of this year for supraventricular tachycardia, for which she underwent ablation. Echocardiogram done during that hospitalization showed left ventricular ejection fraction of 35% to 40%. She reports that she has been having global headaches over the last 3 weeks. She is unable to describe the headaches further. She took Tylenol without relief. She reports that she also has a history of migraine headaches and these headaches are different. She also reports unsteadiness while ambulating over the last 2 days. Yesterday, she developed blurriness of vision, which has resolved. She also developed right upper extremity tingling and weakness, which is ongoing. She denies any nausea or vomiting. She denies any chest pain or shortness of breath. REVIEW OF SYSTEMS: All other systems reviewed and found to be negative. PAST MEDICAL HISTORY: Supraventricular tachycardia status post ablation, noninsulin dependent diabetes mellitus, cardiomyopathy, dyslipidemia, hypertension, chronic low back pain, gastroesophageal reflux disease, peripheral artery disease, and osteoarthritis. PAST SURGICAL HISTORY: L3/L4 lumbar decompression and left rotator cuff repair. ALLERGIES: PENICILLIN, MORPHINE, LISINOPRIL, AZITHROMYCIN, AND LATEX. FAMILY HISTORY: Coronary artery disease in mother and brother. Hypertension among several family members. SOCIAL HISTORY: The patient denies tobacco use, alcohol use, or recreational drug use. MEDICATIONS: 1. Lasix 40 mg daily. 2. Potassium chloride 10 mEq . 3. Gabapentin 600 mg 3 times a day. 4. Carvedilol 3.125 mg 3 times a day. 5. Atorvastatin 40 mg daily. 6. Amitriptyline 50 mg at bedtime. 7. Celecoxib 100 mg daily. 8. Aspirin 81 mg daily. 9. Lorazepam 1 mg at bedtime as needed. 10. Glimepiride 2 mg daily. 11. Pantoprazole 40 mg daily. PHYSICAL EXAMINATION: GENERAL: On examination, Ms. Mari is awake and alert, not in acute distress. VITAL SIGNS: Blood pressure is 129/88, pulse 71, respiratory rate 19, and oxygen saturation 99% on room air. She is afebrile. EYES: No scleral icterus. No conjunctival pallor. ENT: Moist mucosal membranes. No oropharyngeal erythema or exudates. NECK: Supple, nontender, trachea is midline. RESPIRATORY: Accessory muscles of breathing are not active. Chest wall movements are symmetric bilaterally. LUNGS: Clear to auscultation without wheeze, rhonchi, or crepitations. CARDIOVASCULAR: S1 and S2 are heard, regular. Peripheral pulses palpable. No carotid bruit. No pericardial rub. ABDOMEN: Soft, nontender. Bowel sounds heard. No hepatomegaly. No splenomegaly. NEUROLOGIC: Cranial nerves 2 through 12 are intact. Power is 4+/5 in the right upper extremity, 5/5 in the other three extremities. Subjectively, she has diminished sensation of touch in the right forearm and over the right hand. No sensory deficits noted in the other three extremities. Deep tendon reflexes 2+, plantars downgoing bilaterally. MUSCULOSKELETAL: Power in the 4 extremities as described above. SKIN: No rashes or subcutaneous nodules. LYMPHATIC: No cervical lymphadenopathy. PSYCHIATRIC: Normal mood, normal affect. The patient is oriented to person, place, and time. LABORATORY DATA: Ms. Mari's labs and investigations were reviewed. I reviewed her electrocardiogram, which shows normal sinus rhythm. No ST changes to suggest an acute coronary syndrome. I also reviewed her chest x-ray, which does not show any pulmonary infiltrates. Noncontrast CT scan of the brain did not show any acute intracranial abnormality. She has normal white count, normocytic anemia with hemoglobin 10.3, normal platelet count, unremarkable comprehensive metabolic profile, normal troponin-I and negative urinalysis. ASSESSMENT AND PLAN: Ms. Mari is a pleasant 58-year-old lady, who was seen at [facility] on November 29, 2018. Her problem list includes: 1. Right upper extremity weakness: Ms. Mari is presenting with right upper extremity weakness and tingling. Given her past medical history, she will need to be ruled out for stroke. She will be admitted to the hospital for further management including MRI of the brain, carotid Dopplers, and 2D echocardiogram. Neurology Service will be consulted. 2. Diabetes mellitus type 2: We will start the patient on Accu-Cheks and insulin sliding scale. 3. Dyslipidemia: Continue statin. 4. Hypertension: Resume home medications. Monitor vital signs and titrate antihypertensives as needed. Many thanks for allowing me to participate in your patient's care. Please feel free to contact me with any questions or concerns. LEVEL OF RISK: High. LEVEL OF COMPLEXITY: High. Job ID: [id number]
[2018-11-29 11:42] VITALS: BMI 30.5
--- NOTE | 2018-11-29 12:21 | MRI ---
MRI BRAIN WITHOUT CONTRAST: HISTORY: Stroke. Tingling in the right arm and legs, starting this morning. Headache. COMPARISON: MRI from 09/02/2017. CORRELATION: CT scan from earlier today. FINDINGS: No restricted diffusion is seen. There are multiple foci of T2 prolongation in the periventricular w ana laura matter, consistent with chronic small vessel ischemic disease. No evidence of infarct, hemorrha ge, midline shift, or abnormal extraaxial fluid collections is seen. The visualized paranasal sinuse s and mastoid air cells are well aerated. No tonsillar herniation is seen. IMPRESSION: No evidence of acute intracranial process. POS: TPC
--- NOTE | 2018-11-29 13:41 | ULT ---
BILATERAL CAROTID DUPLEX ULTRASOUND: DATE: 11/29/18 HISTORY: 58-year-old female with right arm tingling, CVA. TECHNIQUE: Macario scale ultrasound with color flow and spectral Doppler imaging of the extracranial carotid artery systems performed. FINDINGS: Scattered plaque is noted. The peak systolic velocity in the right ICA measures 96 cm/second with an end-diastolic velocity of 4 0 cm/second and a systolic ratio of 1.33. The peak systolic velocity in the left ICA measures 72 cm/second with an end-diastolic velocity of 25 cm/second and a systolic ratio of 1.04. Flow in both vertebral arteries remains antegrade. IMPRESSION: No evidence of hemodynamically significant stenosis. POS: TPC
[2018-11-29] MEDS ORDERED: HumaLOG 300 UNITS/3 ML VIAL SC PRN (14:42)
[2018-11-29] MEDS ORDERED: Dextrose 5% in Water 1,000 ML IV PRN (14:42)
[2018-11-29] MEDS ORDERED: Dextrose 50% Abboject 50 ML SYRINGE IVP PRN (14:42)
[2018-11-29] MEDS: Acetaminophen/Codeine 30-300mg Tablet PO PRN ×2 (15:36→22:28)
[2018-11-29] MEDS ORDERED: PROVENTIL INHALER 6.7 G (200 INHALATIONS) INH PRN (19:17)
[2018-11-29] MEDS ORDERED: Gabapentin 300 MG CAP PO SCH ×2 (19:45→21:00)
[2018-11-29] MEDS: Amitriptyline HCl 25 MG TAB PO SCH (20:11)
[2018-11-29] MEDS: Atorvastatin Calcium 40 MG TAB PO SCH (20:12)
[2018-11-29] MEDS: Carvedilol 3.125 MG TAB PO SCH (20:12)
[2018-11-30 05:31] LABS: #Eosinphils 0.2 thou/uL (0.0-0.7); #Monocytes 0.8 thou/uL (0.11-0.59); #Neutrophils 4.6 thou/uL (1.40-6.50); %Basophils 0.3 % (0.0-1.0); %Eosinophils 2.3 % (0.0-10.0); %Lymphocytes 34.4 % (21.0-51.0); %Monocytes 9.1 % (0.0-10.0); %Neutrophils 53.9 % (42.0-75.0); Hemoglobin 9.3 g/dL (12.0-16.0); Mean Corpuscular HGB CONC 32.7 g/dL (32.0-36.0); Mean Corpuscular Hemoglobin 29.9 pg (27.0-31.0); Mean Corpuscular Volume 91.5 fL (78.0-98.0); Mean Platelet Volume 7.7 fL (7.4-10.4); Platelet Count 186 thou/uL (130-400); RBC Distribution Width 12.3 % (11.5-14.5); Red Blood Cell (RBC) Count 3.12 mill/uL (4.20-5.40); White Blood Cell (WBC) Count 8.6 thou/uL (4.8-10.8)
[2018-11-30 05:54] LABS: Anion Gap 13 mmol/L (10-20); BUN (Urea Nitrogen) 13 mg/dL (9.8-20.1); Calc. Creatinine Clearance 87 mL/min (70-130); Calcium 9.1 mg/dL (7.8-10.44); Carbon Dioxide 24 mmol/L (22-29); Cardiac Risk 2.3 (Less than 4.5); Chloride 109 mmol/L (98-107); Cholesterol 88 mg/dl (< 200 Desired); Estimated GFR-MDRD 82; Glucose 101 mg/dL (70-105); HDL Cholesterol 38 mg/dL (>60 Neg Risk); LDL Cholesterol, Calculated 34 mg/dL; Potassium 3.6 mmol/L (3.5-5.1); Sodium 142 mmol/L (136-145); Triglycerides 79 mg/dL (Less than 150)
[2018-11-30] MEDS: Enoxaparin Sodium 40 MG/0.4 ML SYRINGE SC SCH (08:23)
[2018-11-30] MEDS: Glimepiride 2 MG TAB PO SCH (08:24)
[2018-11-30] MEDS: Aspirin 81 mg Enteric Coated Tablet PO SCH (08:24)
[2018-11-30] MEDS: Furosemide 40 MG TAB PO SCH (08:24)
[2018-11-30] MEDS: Gabapentin 300 MG CAP PO SCH ×3 (08:24→20:40)
[2018-11-30] MEDS: Acetaminophen/Codeine 30-300mg Tablet PO PRN ×3 (08:25→22:17)
[2018-11-30] MEDS: Atorvastatin Calcium 40 MG TAB PO SCH ×2 (08:25→20:40)
[2018-11-30] MEDS: Carvedilol 3.125 MG TAB PO SCH ×3 (08:25→20:40)
[2018-11-30] MEDS ORDERED: Ibuprofen 600 MG TAB PO PRN (12:09)
[2018-11-30] MEDS ORDERED: Polyethylene Glycol 3350 17 GM Packet PO PRN (13:31)
--- NOTE | 2018-11-30 18:48 | PRG ---
DATE OF SERVICE: 11/30/2018 SUBJECTIVE: Ms. Mari is a 58-year-old female with past medical history significant for dilated cardiomyopathy with last estimated EF 35% to 40%, hypertension, hyperlipidemia, and type 2 diabetes mellitus, who presented to the hospital with complaints of right hand weakness and tingling, headache, and blurry vision. The patient has been admitted for CVA rule out. The patient continues to complain of some right-handed weakness and tingling, but on further review, this is exacerbated with flexion of the neck, back and forth. The patient denies any chest pain or shortness of breath. She has no nausea or vomiting. Appetite is good. She does complain of mild headache. OBJECTIVE: VITAL SIGNS: Blood pressure 107/69, pulse is 67, respirations are 20, and O2 saturation is 98% on room air. GENERAL: The patient is a middle-aged female, resting comfortably in bed, in no acute distress. HEENT: Head is atraumatic and normocephalic. Mucous membranes are moist. NECK: No obvious JVD. Trachea is midline. No carotid bruits. CV: S1 and S2. Regular rate and rhythm. No appreciable murmurs, rubs, or gallops. LUNGS: Regular respiratory rate and pattern. Clear to auscultation bilaterally. I can appreciate no wheezes, rhonchi, or crackles. ABDOMEN: Positive bowel sounds. Soft and nontender. No guarding or rebound. No masses. EXTREMITIES: No edema. +2 DP pulses bilaterally. Extremities are warm and well perfused. NEUROLOGIC: Cranial nerves II through XII are intact, +4/5 strength of right upper extremity. Otherwise nonfocal. LABORATORY DATA: White blood cell count 8.6, hemoglobin 9.3, hematocrit 28.5, and platelets are 186. Sodium 142, potassium 3.6, chloride 109, carbon dioxide 24, anion gap 13, BUN 13, creatinine 0.86. Triglycerides 79, total cholesterol 88, LDL 34, HDL 38. Urinalysis was negative. ASSESSMENT: 1. Paresthesia and weakness, right upper extremity, likely secondary to radiculopathy from cervical spinal pathology. CVA workup is negative. 2. Dilated cardiomyopathy with last EF of 35% to 40%. The patient appears euvolemic. 3. Hyperlipidemia. 4. Hypertension. 5. Headache. PLAN: At this time, we will continue stroke prophylaxis with aspirin and statin. The patient has been seen in conjunction with Neurology, who recommends follow up with PCP, further imaging of the neck and spinal column as an outpatient. We will continue NSAIDs for her headache. Physical Therapy consult is pending. Echocardiogram is pending at this time. Anticipate discharge in the near future. Care has been discussed with Dr. Boyd, who agrees with the above. Job ID: [id number]
[2018-11-30] MEDS: Amitriptyline HCl 25 MG TAB PO SCH (20:40)
[2018-12-01] MEDS: Acetaminophen/Codeine 30-300mg Tablet PO PRN (09:15)
[2018-12-01] MEDS: Aspirin 81 mg Enteric Coated Tablet PO SCH (09:16)
[2018-12-01] MEDS: Glimepiride 2 MG TAB PO SCH (09:17)
[2018-12-01] MEDS: Gabapentin 300 MG CAP PO SCH (09:17)
[2018-12-01] MEDS: Atorvastatin Calcium 40 MG TAB PO SCH (09:17)
[2018-12-01] MEDS: Furosemide 40 MG TAB PO SCH (09:18)
[2018-12-01] MEDS: Carvedilol 3.125 MG TAB PO SCH (09:19)
[2018-12-01] MEDS: Enoxaparin Sodium 40 MG/0.4 ML SYRINGE SC SCH (09:20)
[2018-12-01 10:00] VITALS: BP 110/68; TEMP 98.8
--- NOTE | 2018-12-02 02:18 | DIS ---
DATE OF ADMISSION: 11/29/2018 DATE OF DISCHARGE: 12/01/2018 ALLERGIES: 1. LATEX. 2. PENICILLINS. 3. LISINOPRIL. 4. MORPHINE. CHIEF COMPLAINT: Right upper extremity weakness and tingling. FINAL DIAGNOSES: 1. Paresthesia and weakness of the right upper extremity, likely secondary to cervical radiculopathy, cerebrovascular accident workup is negative. 2. Dilated cardiomyopathy, EF 30% to 35%, stable, euvolemic, follows with Dr. Garduno. 3. Hyperlipidemia. 4. Hypertension. 5. Type 2 diabetes mellitus. 6. Osteoarthritis. 7. History of L3-L4 lumbar decompression. PROCEDURE PERFORMED: None. LAB RESULTS: White blood cell count 8.6, hemoglobin 9.3, hematocrit 28.5, platelets are 186. Sodium 142, potassium 3.6, carbon dioxide 24, BUN 13, creatinine 0.86, glucose 101. LDL 34, HDL 38, triglycerides 79, total cholesterol 88. Urinalysis negative. IMAGING RESULTS: Brain CT November 29, 2018, showed no acute intracranial abnormality demonstrated. Chest x-ray, no acute cardiopulmonary process. Brain MRI, no evidence of acute intracranial process. Carotid Doppler, no evidence of hemodynamically significant stenosis. Echocardiogram, ejection fraction 30% to 35%, left ventricular function moderately depressed, E/A flow reversal noted suggestive of diastolic dysfunction, mild MR, mild AR, mild TR. HOSPITAL COURSE: The patient is a 58-year-old female with past medical history significant for dilated cardiomyopathy with EF 30% to 35%, history of AV choco reentry tachycardia, status post ablation, type 2 diabetes mellitus, hypertension, and hyperlipidemia, who presented to the hospital with complaints of blurred vision, right upper extremity tingling, and weakness. She also was complaining of some migraines, which she does have a history of, but she did not find relief with Tylenol. She was admitted to our facility for CVA workup and rule out given her many risk factors. Her CVA workup was negative. Echocardiogram was repeated, which showed stable cardiomyopathy. Of note, the patient's right upper extremity tingling did seem to be exacerbated with movement of her neck back and forth, which did suggest some radiculopathy or musculoskeletal component to her symptoms. Her headache did resolve. The patient has ambulated with physical therapy, who have recommended outpatient physical therapy for her. At this time, the patient has no complaints to me. She has no chest pain or shortness of breath. She has no nausea or vomiting. Her appetite is good. Her headache has resolved. PHYSICAL EXAMINATION: VITAL SIGNS: Blood pressure 110/68, pulse 85, O2 saturation 100% on room air, respirations 18, the patient is afebrile at 98.8. GENERAL: The patient is a middle-aged, female, resting comfortably in bed. No acute distress. HEENT: Head is atraumatic and normocephalic. Mucous membranes are moist. NECK: No obvious JVD. Trachea is midline. No carotid bruits. CV: S1 and S2. Regular rate and rhythm. No appreciable murmurs, rubs, or gallops. LUNGS: Regular respiratory rate and pattern. Clear to auscultation bilaterally. I can appreciate no wheezes, rhonchi, or crackles. ABDOMEN: Positive bowel sounds. Soft and nontender. No guarding or rebound. No masses. EXTREMITIES: No edema. +2 DP pulses bilaterally. Extremities are warm and well perfused. NEUROLOGIC: Cranial nerves II through XII are intact. The patient is nonfocal today. CONDITION AT DISCHARGE: Stable. DISCHARGE MEDICATIONS: 1. Amitriptyline 50 mg p.o. at bedtime. 2. Lipitor 40 mg tablet p.o. b.i.d. 3. Carvedilol 3.125 mg tablet, one tablet p.o. t.i.d. 4. Celecoxib 100 mg capsule daily. 5. Lasix 40 mg tablet daily. 6. Gabapentin 600 mg p.o. t.i.d. 7. Amaryl 2 mg p.o. q.a.m. with meals. 8. Protonix 40 mg tablet daily. 9. Potassium chloride 10 mEq p.o. q.i.d. 10. Ventolin inhaler 2 puffs inhaled p.r.n. wheezing. 11. Aspirin 81 mg daily. 12. Acetaminophen with codeine 300 mg/30 mg tablet, one tablet p.o. at bedtime p.r.n. pain. DISCHARGE DISPOSITION: Home with outpatient physical therapy. DIET: Low-sodium, heart healthy diet. PLAN: The patient will continue her home medications as prescribed, aspirin, Plavix, and carvedilol. 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 Garduno, for continued optimization of her heart failure medications. Physical Therapy has recommended outpatient physical therapy and the patient was given a prescription for this therapy. Her diagnoses were explained to the patient at length and all questions answered. I have recommended follow up with her primary care physician for possible MRI of her neck and back. Care of this patient has been discussed with Dr. Boyd who agrees with the above. Job ID: [id number]
== END 2018-12-01 12:00 | disposition home or self-care (01) ==
LOC: ERS 07:10 → 2SE 10:58
PROVIDERS: ADMIT Internal Medicine; ATTEND Internal Medicine
DX: R20.2 Paresthesia of skin (principal); R53.1 Weakness; I42.0 Dilated cardiomyopathy; E78.5 Hyperlipidemia, unspecified; E11.51 Type 2 diabetes mellitus with diabetic peripheral angiopathy without gangrene; M19.90 Unspecified osteoarthritis, unspecified site; I10 Essential (primary) hypertension; G89.29 Other chronic pain; M54.5 Low back pain; K21.9 Gastro-esophageal reflux disease without esophagitis; R51 Headache; Z79.82 Long term (current) use of aspirin; Z79.84 Long term (current) use of oral hypoglycemic drugs; Z79.899 Other long term (current) drug therapy; Z88.0 Allergy status to penicillin; Z88.5 Allergy status to narcotic agent; Z88.8 Allergy status to other drugs, medicaments and biological substances; Z91.040 Latex allergy status; Z98.890 Other specified postprocedural states
CPT/HCPCS: 70450; 70551; 71045; 80048; 80053; 80061; 81003; 82962 ×3; 84484; 85025 ×2; 93005; 93306; 93880; 96372 ×2; 97139 ×5; 99285; G0378 ×2; 36415; 36416; J1650

== ENCOUNTER 2018-12-09 19:30 | Outpatient (CLI) | payer MEDICARE, MEDICAID | END 2018-12-09 19:31 | disposition home or self-care (01) | LOC: SLEEPLAB 19:30 | PROVIDERS: ATTEND Family Medicine | DX: G47.33 Obstructive sleep apnea (adult) (pediatric) (principal); R53.83 Other fatigue | CPT/HCPCS: 95810 ==

== ENCOUNTER 2018-12-21 19:30 | Outpatient (CLI) | payer MEDICARE, MEDICAID | END 2018-12-21 19:31 | disposition home or self-care (01) | LOC: SLEEPLAB 19:30 | PROVIDERS: ATTEND Family Medicine | DX: G47.33 Obstructive sleep apnea (adult) (pediatric) (principal); R53.83 Other fatigue; R06.83 Snoring; G47.10 Hypersomnia, unspecified; E66.9 Obesity, unspecified; Z68.31 Body mass index [BMI] 31.0-31.9, adult | CPT/HCPCS: 95811 ==

== ENCOUNTER 2019-01-01 08:47 | Emergency (ER) | payer MEDICARE, MEDICAID ==
[2019-01-01] MEDS ORDERED: Ondansetron ODT 4 MG TAB ONE (09:07)
[2019-01-01] MEDS ORDERED: HYDROcodone/Acetaminophen 10/325 mg Tablet ONE (09:07)
[2019-01-01 09:20] LABS: #Eosinphils 0.4 thou/uL (0.0-0.7); #Lymphocytes 1.8 thou/uL (1.20-3.40); #Monocytes 0.5 thou/uL (0.11-0.59); #Neutrophils 4.1 thou/uL (1.40-6.50); %Basophils 0.4 % (0.0-1.0); %Eosinophils 5.5 % (0.0-10.0); %Lymphocytes 26.7 % (21.0-51.0); %Neutrophils 60.4 % (42.0-75.0); Hemoglobin 10.7 g/dL (12.0-16.0); Mean Corpuscular HGB CONC 33.2 g/dL (32.0-36.0); Mean Corpuscular Hemoglobin 30.3 pg (27.0-31.0); Mean Corpuscular Volume 91.4 fL (78.0-98.0); Mean Platelet Volume 7.3 fL (7.4-10.4); Platelet Count 209 thou/uL (130-400); Red Blood Cell (RBC) Count 3.53 mill/uL (4.20-5.40); White Blood Cell (WBC) Count 6.9 thou/uL (4.8-10.8)
--- NOTE | 2019-01-01 09:32 | RAD ---
EXAM: 4 views of the right knee HISTORY: Knee pain COMPARISON: 06/24/2017 FINDINGS: No knee effusion is seen. There is no evidence of acute fracture or dislocation. No signifi cant degenerative changes are seen. No soft tissue swelling is present. IMPRESSION: No evidence of acute osseous abnormality.
[2019-01-01 09:33] LABS: Bilirubin Negative (Negative); Blood, Urine Negative (Negative); Clarity CLEAR (Clear); Glucose, Urine (Dipstick) Negative (Negative); Leukocyte Negative (Negative); Nitrite Negative (Negative); Protein, Urine (Dipstick) Negative (Neg-Trace); Specific Gravity, Urine 1.025 (1.002-1.036); Urobilinogen 0.2 mg/dL (0.2-1.0); pH, Urine 5.5 (5.0-9.0)
--- NOTE | 2019-01-01 09:33 | RAD ---
Exam: 3 views of the lumbosacral spine HISTORY: Low back pain COMPARISON: None FINDINGS: 3 views of the lumbosacral spine shows normal height and alignment of the vertebral bodies without fracture or subluxation. Moderate degenerative changes are seen in the lumbar spine. The patient is status post fusion of L4 and L5 with left-sided pedicle screws. The sacroiliac joints are unremarkable. IMPRESSION: Degenerative changes of the lumbar spine without acute osseous abnormality.
[2019-01-01 09:41] LABS: ALT (SGPT) 12 U/L (8-55); AST (SGOT) 20 U/L (5-34); Alkaline Phosphatase 134 U/L (40-150); Anion Gap 14 mmol/L (10-20); BUN (Urea Nitrogen) 21 mg/dL (9.8-20.1); Bilirubin, Total 0.3 mg/dL (0.2-1.2); Calc. Creatinine Clearance 0 mL/min (70-130); Calcium 9.5 mg/dL (7.8-10.44); Carbon Dioxide 24 mmol/L (22-29); Chloride 107 mmol/L (98-107); Estimated GFR-MDRD 62; Globulin 3.1 g/dL (2.4-3.5); Glucose 127 mg/dL (70-105); Potassium 4.3 mmol/L (3.5-5.1); Protein, Total 7.1 g/dL (6.0-8.3); Sodium 141 mmol/L (136-145)
[2019-01-01] MEDS ORDERED: Dexamethasone 10 MG/ML VIAL ONE (10:02)
== END 2019-01-01 10:23 | disposition home or self-care (01) ==
LOC: ERS 08:47
DX: M17.11 Unilateral primary osteoarthritis, right knee (principal); M54.5 Low back pain; E11.9 Type 2 diabetes mellitus without complications; D50.9 Iron deficiency anemia, unspecified; E78.5 Hyperlipidemia, unspecified; J45.909 Unspecified asthma, uncomplicated; I25.10 Atherosclerotic heart disease of native coronary artery without angina pectoris; Z87.891 Personal history of nicotine dependence; Z79.82 Long term (current) use of aspirin; Z79.891 Long term (current) use of opiate analgesic; Z79.899 Other long term (current) drug therapy
CPT/HCPCS: 36415; 72100; 80053; 81003; 85025; 96372; J1100; Q0162

== ENCOUNTER 2019-01-19 11:09 | Outpatient (CLI) | payer MEDICARE, MEDICAID ==
--- NOTE | 2019-01-19 12:44 | MMO ---
Bilateral MAMMO Bilat Screen [facility]. CLINICAL HISTORY: Patient is 58 years old and is seen for screening. The patient has no family history of breast cancer. The patient has no personal history of cancer. The patient has a history of right Excisional Biopsy in 2006 - benign. VIEWS: The views performed were: bilateral craniocaudal with tomosynthesis and bilateral mediolateral oblique with tomosynthesis. FILMS COMPARED: The present examination has been compared to prior imaging studies performed at [facility] on 06/03/2010, 06/18/2011, 06/23/2016 and 12/13/2017. MAMMOGRAM FINDINGS: There are scattered fibroglandular densities. There are stable post operative changes seen in the right breast. There are no suspicious masses, suspicious calcifications, or new areas of architectural distortion. IMPRESSION: THERE IS NO MAMMOGRAPHIC EVIDENCE OF MALIGNANCY. A ROUTINE FOLLOW-UP MAMMOGRAM IN 1 YEAR IS RECOMMENDED. THE RESULTS OF THIS EXAM WERE SENT TO THE PATIENT. ACR BI-RADS Category 2 - Benign finding MAMMOGRAPHY NOTE: 1. A negative mammogram report should not delay a biopsy if a dominant of clinically suspicious mass is present. 2. Approximately 10% to 15% of breast cancers are not detected by mammography. 3. Adenosis and dense breasts may obscure an underlying neoplasm.
== END 2019-01-19 11:10 | disposition home or self-care (01) ==
LOC: BICMAMMO 11:09
PROVIDERS: ATTEND Family Medicine
DX: Z12.31 Encounter for screening mammogram for malignant neoplasm of breast (principal); Z91.89 Other specified personal risk factors, not elsewhere classified
CPT/HCPCS: 77063; 77067

== ENCOUNTER 2019-03-12 13:01 | Emergency (ER) | payer MEDICARE, MEDICAID ==
[2019-03-12] MEDS ORDERED: Cyclobenzaprine 10 MG TAB ONE (13:52)
== END 2019-03-12 14:36 | disposition home or self-care (01) ==
LOC: ERS 13:01
DX: M54.31 Sciatica, right side (principal); M54.32 Sciatica, left side; M54.2 Cervicalgia; D50.9 Iron deficiency anemia, unspecified; E78.5 Hyperlipidemia, unspecified; J45.909 Unspecified asthma, uncomplicated; I25.10 Atherosclerotic heart disease of native coronary artery without angina pectoris; E11.9 Type 2 diabetes mellitus without complications; I11.0 Hypertensive heart disease with heart failure; I50.9 Heart failure, unspecified; Z79.82 Long term (current) use of aspirin; Z79.891 Long term (current) use of opiate analgesic; Z79.899 Other long term (current) drug therapy; Z87.891 Personal history of nicotine dependence
CPT/HCPCS: 99283

== ENCOUNTER 2019-04-24 09:52 | Observation (INO) | payer MEDICARE, MEDICAID ==
[2019-04-24 10:28] LABS: Bilirubin Negative (Negative); Blood, Urine Negative (Negative); Clarity Clear (Clear); Glucose, Urine (Dipstick) Normal (Negative); Leukocyte Negative Leu/uL (Negative); Nitrite Negative (Negative); Protein, Urine (Dipstick) Negative (Neg-Trace); Urobilinogen Normal mg/dL (Less than 2)
[2019-04-24 10:37] LABS: #Eosinphils 0.2 thou/uL (0.0-0.7); #Lymphocytes 2.3 thou/uL (1.20-3.40); #Monocytes 0.8 thou/uL (0.11-0.59); #Neutrophils 6.9 thou/uL (1.40-6.50); %Basophils 0.1 % (0.0-1.0); %Eosinophils 1.6 % (0.0-10.0); %Lymphocytes 22.6 % (21.0-51.0); %Monocytes 7.7 % (0.0-10.0); Hemoglobin 11.5 g/dL (12.0-16.0); Mean Corpuscular HGB CONC 33.7 g/dL (32.0-36.0); Mean Corpuscular Hemoglobin 30.1 pg (27.0-31.0); Mean Corpuscular Volume 89.3 fL (78.0-98.0); Mean Platelet Volume 7.1 fL (7.4-10.4); Platelet Count 246 thou/uL (130-400); RBC Distribution Width 12.6 % (11.5-14.5); White Blood Cell (WBC) Count 10.1 thou/uL (4.8-10.8)
[2019-04-24 10:53] LABS: ALT (SGPT) 15 U/L (8-55); AST (SGOT) 18 U/L (5-34); Albumin 4.5 g/dL (3.5-5.0); Alkaline Phosphatase 154 U/L (40-150); Anion Gap 14 mmol/L (10-20); BUN (Urea Nitrogen) 18 mg/dL (9.8-20.1); Bilirubin, Total 0.5 mg/dL (0.2-1.2); CK (CPK) 444 U/L (29-168); Calc. Creatinine Clearance 0 mL/min (70-130); Carbon Dioxide 25 mmol/L (22-29); Chloride 102 mmol/L (98-107); Estimated GFR-MDRD 44; Globulin 3.5 g/dL (2.4-3.5); Glucose 119 mg/dL (70-105); Lipase 26 U/L (8-78); Potassium 3.7 mmol/L (3.5-5.1); Sodium 137 mmol/L (136-145)
--- NOTE | 2019-04-24 11:13 | RAD ---
PORTABLE CHEST: Date: 04/24/19 HISTORY: Syncope. Chest pain. COMPARISON: 11/29/18 study. FINDINGS: Heart size and mediastinum are within normal limits. Lungs are clear of infiltrates. No significant b arturo findings. IMPRESSION: No active intrathoracic disease. POS: OFF
[2019-04-24] MEDS ORDERED: Aspirin Chewable 81 MG TAB ONE (11:20)
[2019-04-24] MEDS ORDERED: Nitroglycerin 2% Ointment 1 INCH/1 GM Packet ONE (11:20)
[2019-04-24] MEDS ORDERED: ISOVUE-370 76%-LOCM 1 ML ONE (13:16)
[2019-04-24] MEDS ORDERED: Ondansetron PF 4 MG/2 ML Vial IVP PRN (13:31)
[2019-04-24] MEDS ORDERED: Ondansetron ODT 4 MG TAB SL PRN (13:31)
--- NOTE | 2019-04-24 14:17 | CT ---
CT ANGIOGRAM THORAX WITH IV CONTRAST AND 3-D RECONSTRUCTIONS CLINICAL INDICATION: Chest pain and dizziness. COMPARISON: 09/20/2018 FINDINGS: Pulmonary arteries: No filling defects are seen in the pulmonary arteries to suggest a pulmonary embo shawn. Aorta: The aorta is normal in caliber without evidence of an aortic dissection. Lungs: Clear without evidence of consolidation or pleural effusion. Mediastinum: There is no evidence of lymphadenopathy. Thyroid gland: Normal CT appearance. Osseous structures: Postsurgical changes bilateral shoulders are noted. Chest wall: No abnormality visualized. Upper abdomen: Small hiatal hernia is present. Surgical clips are again seen related to cholecystecto my. IMPRESSION: 1. No CT evidence of a pulmonary embolus. 2. CTA thorax is stable compared to the prior study including small hiatal hernia.
[2019-04-24 14:48] LABS: Troponin I Less than 0.010 ng/mL (< 0.028)
[2019-04-24 16:51] VITALS: BMI 30.1
[2019-04-24] MEDS ORDERED: Acetaminophen 325 MG TAB PO PRN (17:44)
[2019-04-24] MEDS ORDERED: PROVENTIL INHALER 6.7 G (200 INHALATIONS) INH PRN (17:50)
[2019-04-24] MEDS ORDERED: Cyclobenzaprine 10 MG TAB PO PRN (17:50)
[2019-04-24 18:11] LABS: Troponin I Less than 0.010 ng/mL (< 0.028)
[2019-04-24] MEDS: Potassium Chloride 10 MEQ TAB PO SCH (20:16)
[2019-04-24] MEDS: Carvedilol 3.125 MG TAB PO SCH (20:16)
[2019-04-24] MEDS: Famotidine 20 MG TAB PO SCH (20:16)
[2019-04-24] MEDS: Atorvastatin Calcium 40 MG TAB PO SCH (20:16)
[2019-04-24] MEDS ORDERED: Acetaminophen/Codeine 30-300mg Tablet PO PRN (21:00)
[2019-04-24] MEDS: Amitriptyline HCl 25 MG TAB PO SCH (22:16)
[2019-04-24] MEDS: Gabapentin 300 MG CAP PO SCH (22:16)
[2019-04-24] MEDS: Lorazepam 1 MG TAB PO SCH (22:18)
--- NOTE | 2019-04-25 00:05 | HP ---
PRIMARY CARE PHYSICIAN: Bridger Mayer DO CHIEF COMPLAINT: Chest pain and dizziness. HISTORY OF PRESENT ILLNESS: Ms. Mari is a 58-year-old female, with past medical history of chronic systolic heart failure, hypertension, hyperlipidemia, asthma, and diabetes mellitus, who had presented to [facility] earlier today after she has been experiencing worsening chest pain, shortness of breath, and dizziness over the last few days. She has also complained of pain in her left breast that she is being getting worked up as outpatient. She states that the chest pain is worse with movement and she states that when she moves her left arm that she feels pulling and tightness occur on her side, she also states that when she gets up and walks down the [place] of her home, she becomes quite short of breath and overall fatigued. She had a normal cardiac cath roughly 1 year ago and she states that she has been following with Dr. Garduno as outpatient. She has a history of systolic heart failure and her last echocardiogram displayed an ejection fraction of 30-35% with diastolic dysfunction. Her serial troponins were found to be negative thus far and her BNP was less than 10. Her D-dimer was slightly elevated at 1.21, however, a CTA of her chest revealed no evidence of PE at this time and portable chest x-ray was also normal. She had denied any fever, chills or any recent illness. She had also denied any headache, blurred vision, palpitations, abdominal pain, nausea, vomiting, or change in stool. She states that the pain is best if she is lying down flat, but is not sure if this is her heart giving her pain or her breast. REVIEW OF SYSTEMS: All other systems reviewed and found to be negative unless mentioned in the HPI. PAST MEDICAL HISTORY: Hypertension, hyperlipidemia, diabetes mellitus, and systolic congestive heart failure. PAST SURGICAL HISTORY: Lipoma removed from right arm and left breast, hysterectomy, cholecystectomy, right rotator cuff surgery, and kidney stone removal. PSYCHIATRIC HISTORY: None. SOCIAL HISTORY: She is a former tobacco smoker. She quit smoking roughly 10 or more years ago and she denies any alcohol or illicit drug use. KNOWN ALLERGIES: Latex, lisinopril, morphine, and penicillins. CURRENT HOME MEDICATIONS: 1. Acetaminophen with codeine 1 tablet oral every 6 hours as needed for pain. 2. Amitriptyline 50 mg oral at bedtime. 3. Celecoxib 200 mg oral daily. 4. Gabapentin 600 mg oral t.i.d. 5. Lorazepam 1 mg p.o. nightly. 6. Protonix 40 mg oral daily. 7. Paroxetine 10 mg oral daily. 8. Aspirin 81 mg daily. 9. Atorvastatin 40 mg oral b.i.d. 10. Carvedilol 3.125 mg t.i.d. 11. Cyclobenzaprine 5 mg oral b.i.d. 12. Furosemide 40 mg oral daily. 13. Glimepiride 2 mg oral daily. 14. Potassium chloride 10 mEq p.o. q.i.d. 15. Ventolin HFA inhaler 2 puffs inhalation every 4 hours as needed for shortness of breath. PHYSICAL EXAMINATION: VITAL SIGNS: BP 124/68, pulse 79, respiration 18, temperature 98.2, and O2 saturation 100% on room air. GENERAL: The patient is awake, alert, and oriented x3, currently lying comfortably in bed and in no acute distress. HEENT: Atraumatic, normocephalic. Pupils are round and reactive to light. Extraocular muscles intact. Moist mucous membranes noted. NECK: Soft and supple. Trachea midline. CARDIOVASCULAR: Positive S1 and S2. Regular rate and rhythm. No murmur auscultated. RESPIRATORY: Clear to auscultation bilaterally. No wheezes, rales, or rhonchi. ABDOMEN: Soft, nontender. Bowel sounds present. MUSCULOSKELETAL: Moves all extremities equal. Pedal and radial pulses 2+ bilaterally. No edema noted. NEUROLOGIC: Cranial nerves 2 through 12 grossly intact. No focal deficits noted. Speech intact and normal. Gait not assessed. SKIN: Warm, dry, and intact. No rashes. No ulceration noted. PSYCHIATRIC: Good mood and affect. LABORATORY DATA: WBC 10.1, RBC 3.80, hemoglobin 11.5, hematocrit 34.0, platelet count 246. D-dimer 1.21. Sodium 137, potassium 3.7, anion gap 14, BUN 18, creatinine 1.48, estimated GFR 44, glucose 119. Troponin less than 0.010 x2. BNP less than 10. Lipase 26. Urinalysis unremarkable. DIAGNOSTIC IMAGING: Portable chest x-ray showed no active intrathoracic disease. CTA of chest revealed no CT evidence of pulmonary embolus. ASSESSMENT/PLAN: 1. Chest pain. This appears to be reproducible in nature. 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 She had a normal cardiac catheterization on 01/2018. 2. Hypertension, currently stable. Continue home regimen. 3. Hyperlipidemia. Continue home statin. 4. Diabetes mellitus. Continue home regimen and add insulin sliding scale with frequent Accu-Cheks. 5. Deep venous thrombosis and gastrointestinal prophylaxis. 6. Code status, full code. 7. Disposition, pending further workup and clinical findings. Job ID: [id number]
[2019-04-25 05:39] LABS: #Basophils 0.1 thou/uL (0.0-0.2); #Eosinphils 0.2 thou/uL (0.0-0.7); #Lymphocytes 2.9 thou/uL (1.20-3.40); #Monocytes 0.8 thou/uL (0.11-0.59); #Neutrophils 4.8 thou/uL (1.40-6.50); %Basophils 0.6 % (0.0-1.0); %Eosinophils 2.5 % (0.0-10.0); %Lymphocytes 33.4 % (21.0-51.0); %Monocytes 8.8 % (0.0-10.0); %Neutrophils 54.7 % (42.0-75.0); Mean Corpuscular Hemoglobin 30.5 pg (27.0-31.0); Mean Corpuscular Volume 92.4 fL (78.0-98.0); Mean Platelet Volume 7.2 fL (7.4-10.4); Platelet Count 221 thou/uL (130-400); RBC Distribution Width 12.8 % (11.5-14.5); Red Blood Cell (RBC) Count 3.27 mill/uL (4.20-5.40); White Blood Cell (WBC) Count 8.7 thou/uL (4.8-10.8)
[2019-04-25 05:50] LABS: Anion Gap 12 mmol/L (10-20); BUN (Urea Nitrogen) 18 mg/dL (9.8-20.1); Calc. Creatinine Clearance 65 mL/min (70-130); Calcium 9.2 mg/dL (7.8-10.44); Carbon Dioxide 24 mmol/L (22-29); Cardiac Risk 2.9 (Less than 4.5); Chloride 108 mmol/L (98-107); Cholesterol 104 mg/dl (< 200 Desired); Estimated GFR-MDRD 60; Glucose 128 mg/dL (70-105); HDL Cholesterol 36 mg/dL (>60 Neg Risk); LDL Cholesterol, Calculated 42 mg/dL; Potassium 4.3 mmol/L (3.5-5.1); Sodium 140 mmol/L (136-145); Triglycerides 128 mg/dL (Less than 150)
[2019-04-25] MEDS: Atorvastatin Calcium 40 MG TAB PO SCH ×2 (10:19→20:41)
[2019-04-25] MEDS: Famotidine 20 MG TAB PO SCH ×2 (10:19→20:41)
[2019-04-25] MEDS: Furosemide 40 MG TAB PO SCH (10:19)
[2019-04-25] MEDS: Aspirin 81 mg Enteric Coated Tablet PO SCH (10:19)
[2019-04-25] MEDS: Potassium Chloride 10 MEQ TAB PO SCH ×4 (10:20→20:40)
[2019-04-25] MEDS: Gabapentin 300 MG CAP PO SCH ×3 (10:20→20:40)
[2019-04-25] MEDS: Enoxaparin Sodium 40 MG/0.4 ML SYRINGE SC SCH (10:22)
[2019-04-25] MEDS: Glimepiride 2 MG TAB PO SCH ×2 (13:14→14:01)
[2019-04-25] MEDS: Carvedilol 3.125 MG TAB PO SCH ×3 (13:14→20:44)
[2019-04-25] MEDS ORDERED: Docusate 100 MG CAP PO SCH (16:30)
--- NOTE | 2019-04-25 20:21 | PDOC.HOSPP ---
- Subjective Encounter Date: 04/25/19 Encounter Time: 20:20 Subjective: f/u for CP, dizziness in context of HTN/DM II. - Objective Vital Signs & Weight: Vital Signs (12 hours) Temp Pulse Resp BP Pulse Ox 04/25/19 19:37 98.3 F 86 16 109/55 L 99 04/25/19 15:32 98.1 F 88 18 120/58 L 96 04/25/19 12:04 98.7 F 88 16 126/75 99 Weight Admit Weight 170 lb Weight 170 lb 3.2 oz I&O: 04/24/19 04/25/19 04/26/19 06:59 06:59 06:59 Intake Total 350 480 Balance 350 480 Result Diagrams: 04/25/19 04:54 04/25/19 04:54 Additional Labs: Laboratory Tests 04/24/19 04/24/19 10:25 10:25 WBC 10.1 Hgb 11.5 L Creatinine 1.48 H Creatine Kinase 444 H Radiology Reviewed by me: Yes (CTA chest - no PE) EKG Reviewed by me: Yes (Tele - SR) Hospitalist ROS - Medication Medications: Active Medications Generic Name Dose Route Start Last Admin Trade Name Freq PRN Reason Stop Dose Admin Acetaminophen 650 mg 04/24/19 17:44 04/24/19 20:27 Tylenol PO 650 mg Q4H PRN Administration Headache/Fever/Mild Pain (1-3) Amitriptyline HCl 50 mg 04/24/19 21:00 04/24/19 22:16 Elavil PO 50 mg HS SARAH Administration Aspirin 81 mg 04/25/19 09:00 04/25/19 10:19 Ecotrin PO 81 mg DAILY SARAH Administration Atorvastatin Calcium 40 mg 04/24/19 21:00 04/25/19 10:19 Lipitor PO 40 mg BID SARAH Administration Carvedilol 3.125 mg 04/24/19 21:00 04/25/19 13:59 Coreg PO 3.125 mg TID SARAH Administration Cyclobenzaprine HCl 5 mg 04/24/19 17:50 04/24/19 20:28 Flexeril PO 5 mg BIDPRN PRN Administration Muscle Pain Enoxaparin Sodium 40 mg 04/25/19 09:00 04/25/19 10:22 Lovenox SC Not Given 0900 SARAH Famotidine 20 mg 04/24/19 21:00 04/25/19 10:19 Pepcid PO 20 mg BID SARAH Administration Furosemide 40 mg 04/25/19 09:00 04/25/19 10:19 Lasix PO 40 mg DAILY SARAH Administration Gabapentin 600 mg 04/24/19 21:00 04/25/19 13:59 Neurontin PO 600 mg TID SARAH Administration Glimepiride 2 mg 04/25/19 08:00 04/25/19 14:01 Amaryl PO 2 mg QAM-WM SARAH Administration Lorazepam 1 mg 04/24/19 21:00 04/24/19 22:18 Ativan PO 1 mg HS SARAH Administration Potassium Chloride 10 meq 04/24/19 21:00 04/25/19 16:34 Klor-Con 10 PO 10 meq QID SARAH Administration - Exam General Appearance: NAD, awake alert Eye: PERRL, anicteric sclera ENT: normocephalic atraumatic, no oropharyngeal lesions Neck: supple, symmetric, no JVD, no thyromegaly, no lymphadenopathy Heart: RRR, no murmur, no gallops, no rubs, normal peripheral pulses Respiratory: CTAB, no wheezes, no rales, no ronchi, normal chest expansion Gastrointestinal: soft, non-tender, non-distended, normal bowel sounds, no palpable masses Extremities: no cyanosis, no clubbing, no edema Skin: normal turgor, no lesions Neurological: cranial nerve grossly intact, no focal deficits, no new deficit Musculoskeletal: normal tone, normal strength Psychiatric: normal affect, A&O x 3 Hosp A/P (1) Chest pain Code(s): R07.9 - CHEST PAIN, UNSPECIFIED Status: Acute Plan: Serial cardiac biomarkers neg x 3, BNP <10, continue supportive mgmt (2) DM2 (diabetes mellitus, type 2) Status: Chronic Qualifiers: Plan: Continue Amaryl/ISS (3) HTN (hypertension) Code(s): I10 - ESSENTIAL (PRIMARY) HYPERTENSION Status: Chronic Qualifiers: Hypertension type: essential hypertension Plan: Stable, continue Coreg/Lasix (4) Non-ischemic cardiomyopathy Code(s): I42.8 - OTHER CARDIOMYOPATHIES Status: Chronic Plan: 2D echo pending, check EF - Plan 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
[2019-04-25] MEDS: Amitriptyline HCl 25 MG TAB PO SCH (20:41)
[2019-04-25] MEDS: Docusate 100 MG CAP PO SCH (20:41)
[2019-04-25] MEDS: Lorazepam 1 MG TAB PO SCH (20:41)
[2019-04-26 06:25] LABS: Hemoglobin 9.8 g/dL (12.0-16.0); Platelet Count 213 thou/uL (130-400)
[2019-04-26 06:42] LABS: Anion Gap 12 mmol/L (10-20); BUN (Urea Nitrogen) 19 mg/dL (9.8-20.1); Calc. Creatinine Clearance 68 mL/min (70-130); Calcium 9.1 mg/dL (7.8-10.44); Carbon Dioxide 24 mmol/L (22-29); Chloride 107 mmol/L (98-107); Estimated GFR-MDRD 58; Glucose 130 mg/dL (70-105); Potassium 3.9 mmol/L (3.5-5.1); Sodium 139 mmol/L (136-145)
[2019-04-26] MEDS: Docusate 100 MG CAP PO SCH (08:04)
[2019-04-26] MEDS: Glimepiride 2 MG TAB PO SCH (08:04)
[2019-04-26] MEDS: Atorvastatin Calcium 40 MG TAB PO SCH (08:05)
[2019-04-26] MEDS: Aspirin 81 mg Enteric Coated Tablet PO SCH (08:05)
[2019-04-26] MEDS: Gabapentin 300 MG CAP PO SCH (08:05)
[2019-04-26] MEDS: Famotidine 20 MG TAB PO SCH (08:05)
[2019-04-26] MEDS: Enoxaparin Sodium 40 MG/0.4 ML SYRINGE SC SCH (08:05)
[2019-04-26] MEDS: Carvedilol 3.125 MG TAB PO SCH (08:05)
[2019-04-26] MEDS: Furosemide 40 MG TAB PO SCH (08:06)
[2019-04-26] MEDS: Potassium Chloride 10 MEQ TAB PO SCH ×2 (08:07→12:27)
[2019-04-26 12:38] VITALS: BP 111/56; TEMP 98.7
--- NOTE | 2019-04-26 22:17 | DIS ---
DATE OF ADMISSION: 04/24/2019 DATE OF DISCHARGE: 04/26/2019 DISCHARGE DIAGNOSES: 1. Musculoskeletal chest pain. 2. Hypertension, stable. 3. Hyperlipidemia. 4. Diabetes mellitus type 2, stable. 5. Dilated cardiomyopathy with ejection fraction of 40% to 45%, stable. CONSULTATIONS: Dr. Garduno with Cardiology Service. PERTINENT LABORATORY AND X-RAY FINDINGS: Creatinine ranged between 1.15 to 1.48. Estimated GFR ranged between 44 to 60. Total CK of 444. Troponin I negative x3. BNP less than 10. Total cholesterol 104, triglycerides 128, HDL 36, LDL 42. Lipase 26. CBC showed a hemoglobin ranging between 9.8 to 11.5, MCV 92. Portable chest x-ray dated 04/24/2019, showed no acute cardiopulmonary process. CT angiogram of the chest dated 04/24/2019, showed no evidence for pulmonary embolus. 2D transthoracic echocardiogram dated 04/26/2019, showed ejection fraction of 40% to 45%. Diastolic dysfunction noted. Mild mitral and tricuspid valve regurgitation. HOSPITAL COURSE: The patient was observed on the telemetry unit after initially presenting with chest pain and dizziness. The patient with known history of cardiomyopathy with negative left heart catheterization in January 2018. The patient underwent repeat 2D transthoracic echocardiogram showing ejection fraction of 40% to 45%, which is stable since prior exam in February of 2019. Telemetry monitoring showed a sinus mechanism without evidence of acute arrhythmia or dysrhythmia and the patient's vital signs remained stable through the hospital course. I have examined the patient at the time of discharge and discussed followup instructions. The patient verbalized understanding and in agreement, ready for discharge on 04/26/2019. DISCHARGE MEDICATIONS: 1. Amitriptyline 50 mg p.o. at bedtime. 2. Lipitor 40 mg p.o. b.i.d. 3. Carvedilol 3.125 mg p.o. t.i.d. 4. Celebrex 200 mg p.o. daily. 5. Flexeril 5 mg p.o. b.i.d. p.r.n. 6. Lasix 40 mg p.o. daily. 7. Gabapentin 600 mg p.o. t.i.d. 8. Amaryl 2 mg p.o. daily. 9. Lorazepam 1 mg p.o. at bedtime. 10. Protonix 40 mg p.o. daily. 11. Paroxetine 10 mg p.o. daily. 12. Ventolin HFA 2 puffs inhaled q.4 hours p.r.n. 13. Tylenol No.3 one tablet p.o. q.6 hours p.r.n. pain. 14. Enteric-coated aspirin 81 mg p.o. daily. FOLLOWUP: The patient may follow up with her primary care provider, Dr. Bridger Mayer within 7 days of discharge. CONDITION ON DISCHARGE: Stable. ACTIVITY: Ad-willie. DIET: Heart healthy and ADA. CODE STATUS: Full. DISPOSITION: Home on 04/26/2019. Job ID: [id number]
--- NOTE | 2019-04-29 13:28 | EKG ---
Test Reason : Blood Pressure : / mmHG Vent. Rate : 087 BPM Atrial Rate : 087 BPM P-R Int : 140 ms QRS Dur : 078 ms QT Int : 332 ms P-R-T Axes : 024 -17 -18 degrees QTc Int : 399 ms Normal sinus rhythm Minimal voltage criteria for LVH, may be normal variant Nonspecific ST and T wave abnormality Abnormal ECG Confirmed by EVERTON MEJIA, HECTOR ([id number]), image editor CATIA PATTERSON ([id number]) on 04/29/2019 1:27:54 PM Referred By: Confirmed By:HECTOR TOSCANO MD
== END 2019-04-26 14:15 | disposition home or self-care (01) ==
LOC: ERS 09:52 → ERHOLD 13:44 → 2SW 15:15
PROVIDERS: ADMIT Internal Medicine; ATTEND Internal Medicine
DX: R07.89 Other chest pain (principal); R42 Dizziness and giddiness; I11.0 Hypertensive heart disease with heart failure; I50.22 Chronic systolic (congestive) heart failure; E78.5 Hyperlipidemia, unspecified; J45.909 Unspecified asthma, uncomplicated; E11.9 Type 2 diabetes mellitus without complications; I42.0 Dilated cardiomyopathy; Z87.891 Personal history of nicotine dependence; Z79.82 Long term (current) use of aspirin; Z79.84 Long term (current) use of oral hypoglycemic drugs; Z79.899 Other long term (current) drug therapy; Z88.0 Allergy status to penicillin; Z88.5 Allergy status to narcotic agent; Z88.8 Allergy status to other drugs, medicaments and biological substances; Z91.040 Latex allergy status
CPT/HCPCS: 71045; 71275; 80048 ×2; 80053; 80061; 81003; 82550; 83690; 83880; 84484 ×2; 85014; 85018; 85025 ×2; 85049; 85379; 93005; 93306; 94760 ×3; 97139; 99285; G0378 ×4; 36415; J1650; Q9966

== ENCOUNTER 2019-06-06 13:11 | Outpatient (CLI) | payer MEDICARE, MEDICAID ==
--- NOTE | 2019-06-06 14:57 | MRI ---
"PRELIMINARY REPORT" MRI Lumbar Spine with and without contrast: HISTORY: Pain COMPARISON: Reference made to 05/24/2017 exam FINDINGS: Conus medullaris is normal in morphology and terminates at the T12-L1 level. L1-2:Disc osteophyte with mild central canal stenosis. Mild bilateral facet hypertrophy with mild to moderate left and mild right neural foraminal narrowing L2-3:Severe central canal stenosis as result of disc osteophyte formation, bilateral facet hypertroph y and redundancy of ligamentum flavum. Mild to moderate left foraminal stenosis. No significant right neural foraminal stenosis. L3-4:Degenerative disc space narrowing and adjacent degenerative marrow edema of the endplates. There is broad-based disc osteophyte with severe central canal stenosis, when combined with bilateral degenerative facet hypertrophy. Severe bilateral neural foraminal stenosis is present with impingemen t of each exiting L3 nerve root. There is also impingement of the traversing L4 nerve roots bilaterally. L4-5:Degenerative disc space narrowing, moderate central canal stenosis, moderate left and mild to mo derate right neural foraminal stenosis. There is limited visualization however, due to traversing left pedicle screws producing susceptibility artifact. L5-S1:Disc osteophyte encroaches upon the ventral aspect of the terminal thecal sac without significa nt mass effect otherwise. Minimal bilateral neural foraminal narrowing when combined with bilateral degenerative facet hypertrophy. There is also crowding of the bilateral traversing S1 nerve roots. Postoperative fusion spans L4 and L5, with left side pedicle screws. No mass-producing pathologic enh ancement of the vertebral canal is evident IMPRESSION: Multilevel degenerative change throughout the lumbar spine, which is most pronounced at L3-4. Transcribed Date/Time: 06/06/2019 3:45 PM
== END 2019-06-06 13:12 | disposition home or self-care (01) ==
LOC: BICMRI 13:11
PROVIDERS: ATTEND Neurological Surgery
DX: M47.26 Other spondylosis with radiculopathy, lumbar region (principal)
CPT/HCPCS: 72158

== ENCOUNTER 2019-09-03 18:23 | Emergency (ER) | payer MEDICARE, MEDICAID ==
--- NOTE | 2019-09-03 21:33 | RAD ---
EXAM: CHEST ONE VIEW HISTORY: Productive cough and chills. Rhinorrhea. COMPARISON: 04/24/2019 FINDINGS: Cardiac silhouette is magnified by projection. The pulmonary vasculature is within normal limits. The lungs are clear. Postsurgical changes each shoulder are again seen. Chest is stable compared to prior exam. IMPRESSION: No acute cardiopulmonary process.
[2019-09-03] MEDS ORDERED: Acetaminophen 500 MG TAB ONE (21:47)
== END 2019-09-03 21:52 | disposition home or self-care (01) ==
LOC: ERS 18:23
DX: J11.1 Influenza due to unidentified influenza virus with other respiratory manifestations (principal); I50.9 Heart failure, unspecified; E11.9 Type 2 diabetes mellitus without complications; D50.9 Iron deficiency anemia, unspecified; I11.0 Hypertensive heart disease with heart failure; E78.5 Hyperlipidemia, unspecified; J45.909 Unspecified asthma, uncomplicated; I25.10 Atherosclerotic heart disease of native coronary artery without angina pectoris; F17.220 Nicotine dependence, chewing tobacco, uncomplicated; Z79.899 Other long term (current) drug therapy; Z79.51 Long term (current) use of inhaled steroids; Z79.84 Long term (current) use of oral hypoglycemic drugs; Z71.6 Tobacco abuse counseling
CPT/HCPCS: 71045; 87804; 99406

== ENCOUNTER 2019-10-24 09:34 | Outpatient (CLI) | payer MEDICARE, MEDICAID ==
--- NOTE | 2019-10-24 14:16 | RAD ---
XR Chest Pa Lat STANDARD HISTORY: Preoperative evaluation COMPARISON: 09/03/2019 FINDINGS: The heart size is normal. The aorta is tortuous. The lungs are well expanded without focal areas of consolidation, pneumothorax or pleural effusions. There are postoperative changes of bilateral rotator cuff repair.. IMPRESSION: No radiographic evidence of acute cardiopulmonary process.
[2019-10-24 15:04] LABS: #Basophils 0.1 thou/uL (0.0-0.2); #Eosinphils 0.2 thou/uL (0.0-0.7); #Lymphocytes 2.5 thou/uL (1.20-3.40); #Monocytes 0.8 thou/uL (0.11-0.59); #Neutrophils 6.2 thou/uL (1.40-6.50); %Basophils 0.6 % (0.0-1.0); %Eosinophils 2.2 % (0.0-10.0); %Lymphocytes 25.5 % (21.0-51.0); %Monocytes 7.7 % (0.0-10.0); Hemoglobin 10.9 g/dL (12.0-16.0); Mean Corpuscular HGB CONC 33.4 g/dL (32.0-36.0); Mean Corpuscular Hemoglobin 30.2 pg (27.0-31.0); Mean Corpuscular Volume 90.6 fL (78.0-98.0); Mean Platelet Volume 8.2 fL (7.4-10.4); Platelet Count 230 thou/uL (130-400); RBC Distribution Width 12.6 % (11.5-14.5); Red Blood Cell (RBC) Count 3.59 mill/uL (4.20-5.40); White Blood Cell (WBC) Count 9.7 thou/uL (4.8-10.8)
[2019-10-24 15:16] LABS: Bacteria/HPF 3+ HPF (None Seen); Bilirubin Negative (Negative); Blood, Urine Negative (Negative); Clarity Turbid (Clear); Glucose, Urine (Dipstick) Normal (Negative); Leukocyte 250 Leu/uL (Negative); Nitrite Negative (Negative); Protein, Urine (Dipstick) 30 mg/dL (Neg-Trace); RBC/HPF 0-3 HPF (0-3); Squamous Epithelial 21-50 HPF (0-3); Urobilinogen Normal mg/dL (Less than 2); WBC/HPF 21-50 HPF (0-3)
[2019-10-24 15:24] LABS: Anion Gap 13 mmol/L (10-20); BUN (Urea Nitrogen) 15 mg/dL (9.8-20.1); Calc. Creatinine Clearance 0 mL/min (70-130); Calcium 9.2 mg/dL (7.8-10.44); Carbon Dioxide 28 mmol/L (22-29); Chloride 106 mmol/L (98-107); Estimated GFR-MDRD 41; Glucose 94 mg/dL (70-105); Potassium 4.1 mmol/L (3.5-5.1); Sodium 143 mmol/L (136-145)
--- NOTE | 2019-10-24 23:01 | EKG ---
Test Reason : Blood Pressure : / mmHG Vent. Rate : 065 BPM Atrial Rate : 065 BPM P-R Int : 172 ms QRS Dur : 074 ms QT Int : 432 ms P-R-T Axes : 064 040 -39 degrees QTc Int : 449 ms Normal sinus rhythm Low voltage QRS T wave abnormality, consider inferior ischemia Abnormal ECG When compared with ECG of 24-APR-2019 10:00, Inverted T waves have replaced nonspecific T wave abnormality in Inferior leads Confirmed by HENNY MEJIA, SGarcia ([id number]) on 10/24/2019 11:01:18 PM Referred By: SAMMIE Confirmed By:DR. Terri INMAN MD
== END 2019-10-24 09:35 | disposition home or self-care (01) ==
LOC: LABBT 09:34
PROVIDERS: ATTEND Orthopaedic Surgery
DX: Z01.818 Encounter for other preprocedural examination (principal); M75.102 Unspecified rotator cuff tear or rupture of left shoulder, not specified as traumatic
CPT/HCPCS: 71046; 80048; 81001; 85025; 87081; 93005; 93010

== ENCOUNTER 2019-11-30 12:37 | Outpatient (CLI) | payer MEDICARE, MEDICAID ==
--- NOTE | 2019-11-30 13:40 | ULT ---
BILATERAL RENAL ULTRASOUND: HISTORY: Chronic liver disease. FINDINGS: The right kidney measures 9.8 cm in length and the left kidney measures 9.4 cm in length. No focal m ass or hydronephrosis is seen on either side. No shadowing calculi are noted. Cortical echogenicity and thickness is normal. The urinary bladder is incompletely distended with a volume of 10 cc (rece ntly emptied). IMPRESSION: Normal renal sonogram. POS: MZA
== END 2019-11-30 12:38 | disposition home or self-care (01) ==
LOC: BICULT 12:37
PROVIDERS: ATTEND Internal Medicine Nephrology
DX: N18.3 Chronic kidney disease, stage 3 (moderate) (principal)
CPT/HCPCS: 36415; 76770; 80048; 82306; 82570; 83970; 84100; 84156; 85014; 85018

== ENCOUNTER 2020-02-12 05:26 | Outpatient (CLI) | payer MEDICARE, MEDICAID, OTHER ==
[2020-02-12 11:12] LABS: #Eosinphils 0.3 thou/uL (0.0-0.7); #Lymphocytes 2.3 thou/uL (1.20-3.40); #Monocytes 0.6 thou/uL (0.11-0.59); %Basophils 0.5 % (0.0-1.0); %Lymphocytes 27.5 % (21.0-51.0); %Monocytes 7.5 % (0.0-10.0); %Neutrophils 60.5 % (42.0-75.0); Hemoglobin 10.9 g/dL (12.0-16.0); Mean Corpuscular HGB CONC 32.7 g/dL (32.0-36.0); Mean Corpuscular Hemoglobin 28.8 pg (27.0-31.0); Mean Platelet Volume 7.8 fL (7.4-10.4); Platelet Count 248 thou/uL (130-400); Red Blood Cell (RBC) Count 3.78 mill/uL (4.20-5.40); White Blood Cell (WBC) Count 8.3 thou/uL (4.8-10.8)
[2020-02-12 11:40] LABS: Bacteria/HPF None Seen HPF (None Seen); Bilirubin Negative (Negative); Blood, Urine Negative (Negative); Clarity Clear (Clear); Glucose, Urine (Dipstick) Normal (Negative); Ketone, Urine Negative (Negative); Leukocyte Negative Leu/uL (Negative); Nitrite Negative (Negative); Protein, Urine (Dipstick) Negative (Neg-Trace); RBC/HPF 0-3 HPF (0-3); Specific Gravity, Urine 1.015 (1.002-1.036); Squamous Epithelial None Seen HPF (0-3); Urobilinogen Normal mg/dL (Less than 2); WBC/HPF 0-3 HPF (0-3); pH, Urine 5.5 (5.0-9.0)
[2020-02-12 12:02] LABS: BHCG - Serum Negative (NEGATIVE); Pregs Control Bar Appear? YES (CONTROL BAR)
[2020-02-12 12:03] LABS: Pregs Control Background? CLEAR/WHITE (CLR/WHITE)
[2020-02-12 12:27] LABS: Anion Gap 16 mmol/L (10-20); BUN (Urea Nitrogen) 12 mg/dL (9.8-20.1); Calc. Creatinine Clearance 0 mL/min (70-130); Calcium 9.1 mg/dL (7.8-10.44); Carbon Dioxide 22 mmol/L (22-29); Chloride 108 mmol/L (98-107); Estimated GFR-MDRD 72; Glucose 114 mg/dL (70-105); Sodium 142 mmol/L (136-145)
--- NOTE | 2020-02-12 17:51 | EKG ---
Test Reason : Blood Pressure : / mmHG Vent. Rate : 071 BPM Atrial Rate : 071 BPM P-R Int : 166 ms QRS Dur : 078 ms QT Int : 410 ms P-R-T Axes : 048 008 -21 degrees QTc Int : 445 ms Normal sinus rhythm Low voltage QRS Nonspecific T wave abnormality Abnormal ECG Confirmed by DR. Terri INMAN MD ([id number]) on 02/12/2020 5:50:49 PM Referred By: SAMMIE Confirmed By:DR. Terri INMAN MD
[2020-02-13 13:10] LABS: SARS-CoV-2 MS2 Positive; SARS-CoV-2 N Gene Negative; SARS-CoV-2 S Gene Negative; SARS-CoV-2 orf1ab Negative
== END 2020-02-12 05:27 | disposition home or self-care (01) ==
LOC: LABBT 05:26
PROVIDERS: ATTEND Orthopaedic Surgery
DX: Z01.818 Encounter for other preprocedural examination (principal); Z11.59 Encounter for screening for other viral diseases; M75.102 Unspecified rotator cuff tear or rupture of left shoulder, not specified as traumatic
CPT/HCPCS: 80048; 81001; 84703; 85025; 93005; U0003; 87635; 93010

== ENCOUNTER 2020-02-12 08:45 | Inpatient (IN) | payer MEDICARE, MEDICAID, OTHER ==
[2020-02-07 10:13] VITALS: BMI 30.6
[2020-02-15] MEDS ORDERED: Clindamycin/D5W 600 mg/50 ml Premix Bag ONE (06:07)
[2020-02-15] MEDS ORDERED: Midazolam HCl 2 mg/2 ml Vial ONE (06:41)
[2020-02-15] MEDS ORDERED: Fentanyl 100 MCG/2 ML VIAL ONE ×3 (06:41→10:18)
[2020-02-15] MEDS ORDERED: Tranexamic Acid 1,000 MG/10 ML VIAL ONE ×3 (06:48→10:32)
[2020-02-15] MEDS ORDERED: Sodium Chloride 0.9% 100 ML ONE (06:48)
[2020-02-15] MEDS ORDERED: Vancomycin 1 GM/200 ML BAG ONE (06:48)
[2020-02-15] MEDS ORDERED: Zolpidem Tartrate 5 MG TAB PO PRN (07:37)
[2020-02-15] MEDS ORDERED: Promethazine HCl 25 MG/ML VIAL IM PRN ×2 (07:37→09:37)
[2020-02-15] MEDS ORDERED: Ketorolac Tromethamine 30 MG/ML VIAL IVP PRN ×2 (07:37→11:17)
[2020-02-15] MEDS ORDERED: Ropivacaine 0.2% 550 ML 550 ML NERVE BLCK SCH (07:37)
[2020-02-15] MEDS ORDERED: traMADol HCl 50 MG TAB PO PRN ×4 (07:37→11:17)
[2020-02-15] MEDS ORDERED: HYDROcodone/Acetaminophen 10/325 mg Tablet PO PRN ×3 (07:37→11:17)
[2020-02-15] MEDS ORDERED: Ondansetron PF 4 MG/2 ML Vial IVP PRN (07:37)
[2020-02-15] MEDS ORDERED: Acetaminophen 325 MG TAB PO PRN ×2 (07:37→11:17)
[2020-02-15] MEDS ORDERED: Fentanyl 100 MCG/2 ML VIAL SLOW IVP PRN (07:38)
[2020-02-15] MEDS ORDERED: Phenylephrine 10 MG/ML VIAL ONE ×2 (07:49→09:13)
--- NOTE | 2020-02-15 08:33 | HP ---
HISTORY OF PRESENT ILLNESS: Ms. Mari is a 59-year-old female, presents with left shoulder pain. She is stable. She is right-hand dominant. The pain can be as 10/10. Pain started greater than year ago. She failed conservative measures with therapy and injections. The patient had a history of rotator cuff repair by Dr Brennan. The patient has symptoms and findings consistent with carpal tunnel. PAST MEDICAL HISTORY: Asthma, emphysema, herniated disk, nasal polyps, reflux, insomnia, peripheral vascular disease, hypercholesterolemia, hypertension, diabetes, reflux, varicosities, hip arthritis, nonischemic cardiomyopathy, SVT, history of radiofrequency ablations, systolic and diastolic congestive heart failure. PAST SURGICAL HISTORY: shoulder rotator cuff repair, L4-L5 hemilaminectomy and facetectomy, hysterectomy. ALLERGIES: INCLUDE LATEX, PENICILLIN, LISINOPRIL, MORPHINE, PENICILLIN CAUSES RESPONSE TO HER NERVES PER REPORT. MEDICATIONS: Include: 1. Acetaminophen. 2. Amitriptyline. 3. Atorvastatin. 4. Carvedilol. 5. Ferrous sulfate. 6. Glimepiride. 7. Lorazepam. 8. Olmesartan. 9. Pantoprazole. 10. Paroxetine. 11. Potassium. 12. Pregabalin. 13. Ventolin inhaler. SOCIAL HISTORY: The patient is disabled. She is here with her son. The patient denies alcohol or illicit drug use. The patient drinks coffee. REVIEW OF SYSTEMS: Noncontributory. PHYSICAL EXAMINATION: GENERAL: Alert and oriented female, in no acute distress, resting comfortably in bed. EXTREMITIES: Left upper extremity elevation about 80, external rotation to 20. The patient has weakness, infraspinatus 4/5, supraspinatus 3/5, and subscapularis 5/ 5. IMPRESSION: Failed left rotator cuff tear repair. ASSESSMENT AND PLAN: The patient will be taken to the operating suite for a left reverse shoulder arthroplasty. I discussed further risks and benefits of the surgery including pain, scar, bleeding, infection, damage to vital structures, decreased range of motion or strength. We discussed she would have some potential nerve stretch injury, she would have to stretch the arm and lose a little bit external rotation. I discussed that she has a risk of loss of life or limb from the procedure. The patient understands that the implant may only last for 10 to 15 years. She desires to proceed. We will proceed forward with a left reverse shoulder arthroplasty and biceps tenodesis. Job ID: [id number] MTDD
[2020-02-15] MEDS ORDERED: Promethazine HCl 25 MG/ML VIAL SLOW IVP PRN (09:37)
[2020-02-15] MEDS ORDERED: Meperidine HCl/PF 25 MG/ML VIAL SLOW IVP PRN (09:37)
[2020-02-15] MEDS ORDERED: Ondansetron HCl/PF 4 MG/2 ML Vial IVP PRN (09:37)
[2020-02-15] MEDS ORDERED: Promethazine HCl 25 MG/ML VIAL ONE (10:18)
[2020-02-15] MEDS ORDERED: Milk Of Magnesia 30 ML UDCUP PO PRN (11:17)
[2020-02-15] MEDS ORDERED: Methocarbamol 500 MG TAB PO PRN (11:17)
[2020-02-15] MEDS ORDERED: diphenhydrAMINE 50 MG CAP PO PRN (11:17)
[2020-02-15] MEDS ORDERED: Ondansetron ODT 4 MG TAB PO PRN (11:17)
[2020-02-15] MEDS ORDERED: Bisacodyl 10 MG SUPP PR PRN (11:17)
[2020-02-15] MEDS ORDERED: Methocarbamol 1 GM/10 ML VIAL SLOW IVP PRN (11:17)
[2020-02-15] MEDS ORDERED: Dexamethasone 20 MG/5 ML VIAL ONE (11:54)
[2020-02-15] MEDS ORDERED: Rocuronium Bromide 10 MG/ML (10ML VIAL) ONE (11:54)
[2020-02-15] MEDS ORDERED: Ondansetron PF 4 MG/2 ML Vial ONE (11:54)
[2020-02-15] MEDS ORDERED: PHENYLEPHRINE-NS 100 MCG/ML 10 ML SYRINGE ONE (11:54)
[2020-02-15] MEDS ORDERED: Ropivacaine 0.2% HCl/PF (40 MG/20 ML VIAL) ONE (11:54)
[2020-02-15] MEDS ORDERED: Ropivacaine 0.5% HCl/PF (150 MG/30 ML VIAL) ONE (11:54)
[2020-02-15] MEDS ORDERED: PROPOFOL 200 MG/20 ML VIAL ONE (11:54)
[2020-02-15] MEDS ORDERED: Glycopyrrolate 0.2 MG/ML 5 ML SYRINGE ONE (11:54)
[2020-02-15] MEDS ORDERED: Lidocaine 1% PF 5 ML VIAL ONE (11:54)
[2020-02-15] MEDS ORDERED: Albuterol Sulfate 2.5 mg/3 ml Neb NEB PRN (11:56)
[2020-02-15] MEDS ORDERED: Lorazepam 1 MG TAB PO PRN (12:01)
[2020-02-15] MEDS: CEFAZOLIN 2 GM in Premix Bag 1 BAG IVPB SCH ×2 (13:17→22:08)
[2020-02-15] MEDS: Potassium Chloride 10 MEQ TAB PO SCH ×3 (13:17→22:08)
[2020-02-15] MEDS: Pregabalin 50 MG CAP PO SCH ×2 (14:12→19:51)
--- NOTE | 2020-02-15 17:03 | OP ---
DATE OF PROCEDURE: 02/15/2020 PREOPERATIVE DIAGNOSIS: Left failed rotator cuff repair. POSTOPERATIVE DIAGNOSIS: Left failed rotator cuff repair. PROCEDURES PERFORMED: 1. Left reverse shoulder arthroplasty. 2. Hardware removal. SURGEON: Rory Wills MD SLIDE FASTENER CHAIN ASSEMBLER: Royer Tesfaye. ANESTHESIA: Dr. Crockett. The patient received a general endotracheal intubation with an interscalene block. ESTIMATED BLOOD LOSS: 250 mL. TOURNIQUET TIME: None. IMPLANTS: Tornier flex 3A stem, 36 mm +[address] tray, glenoid perform reversed, 25 mm base plate, a 30 mm central screw, 26, 18 and 20 mm screws, and glenosphere was a 36 mm lateral +3 mm. COMPLICATIONS: None. HISTORY OF PRESENT ILLNESS: Ms. Mari is a 59-year-old female, previous patient of Dr. Spann, had a rotator cuff repair several years ago. The patient continued to have pain with overhead activities. She is cleared by her community facilitator, primary care doctor, and patient day coordinator for left reverse shoulder arthroplasty. I discussed with her the risks and benefits of surgery to include pain, scar, bleeding, infection, damage to vital structures, decreased range of motion and strength, continued pain despite surgery intervention, failure of procedure, need for hardware removal, infection, requiring revision, loss of life or limb. The patient and family understood the risks and benefits of procedure, elected to proceed. DESCRIPTION OF PROCEDURE: Time-out was performed designating the patient's left upper extremity as the operative site based on site, consents, and marking. After time-out, the patient's left upper extremity was prepped and draped in sterile fashion. The patient had a skin incision over the deltopectoral interval, dissected down through skin, came down and found the vein. We opened the interval We came down to the biceps, it had actually already been auto-tenodesed, was in the groove, there was a flimsy scar plane and the subscap essentially was a high-grade undersurface tear of the subscap. Supraspinatus was essentially nonadherent. There was a scar plane in its position, but there was nonfunctional rotator cuff, we reduced it into place. We took the inferior neck. There was osteophyte formation. We made our cut, removed the head, only it looked like teres and little bit of infraspinatus were left attached from the repair. After reaming our cut we started with our broach. We actually had removed two of the metal anchors when we made our cut. We then started with our opening awl, broached up and placed a size 3, ultimately, cleaned off the cut. We then placed our retractors. We had sutures, we had placed five #5 stitches in our subscap that we had peeled off and we placed another anchor to expose our glenoid. We did 360-degree release of the labrum, bluntly dissected inferiorly. Being happy with the exposure, we then placed our 10-degree tilt, which we transitioned anterior just a little bit. We reamed and cleaned up our reamer and then drilled a center hole and placed the 25 mm base plate, compressed into place after we had drilled and measured for 30. I was happy with this position and fixation, we then drilled an anterior compression screw and 2 superior inferior locking screws and compressed them into place. We washed, placed a 3 mm lateralized sphere and we then moved back to the patient's humerus. Ultimately we were trying to reduce those that were too long before we broached back down about 4 mm. We were able to reduce the head and we had it in a 12 o'clock position to help with lateralized and a lateralized glenosphere, reduced it into position, overall had good range of motion. The conjoint was not taut and it had some laxity to it. We were able to externally and internally rotate and were happy with the overall arc of motion, and it was difficult to dislocate, we removed it. We placed drill holes and our #5 Ethibond, which we placed around the implant, impacted our final implant into place. We then reduced it. Sewed the subscap down to the drill holed bones and used the sutures that we had applied and attached to the remnant scar laterally, cut our sutures, washed, closed the deltopectoral interval with 0, 2-0, and skin enma. The patient will be admitted overnight and will be discharged home tomorrow as long as she is stable, to follow up in 2 weeks. Job ID: [id number] [facility]
[2020-02-15] MEDS ORDERED: Vancomycin 1 GM in Premix Bag 1 BAG IVPB SCH (19:00)
[2020-02-15] MEDS: Carvedilol 6.25 MG TAB PO SCH (19:51)
[2020-02-15] MEDS: Atorvastatin Calcium 40 MG TAB PO SCH (19:51)
[2020-02-15] MEDS ORDERED: Amitriptyline HCl 25 MG TAB PO SCH (21:00)
[2020-02-15] MEDS: HYDROcodone/Acetaminophen 10/325 mg Tablet PO PRN (22:10)
[2020-02-16] MEDS: HYDROcodone/Acetaminophen 10/325 mg Tablet PO PRN ×2 (05:54→12:22)
[2020-02-16] MEDS ORDERED: Glimepiride 2 MG TAB PO SCH (08:00)
[2020-02-16] MEDS: Pregabalin 50 MG CAP PO SCH (08:15)
[2020-02-16] MEDS: Atorvastatin Calcium 40 MG TAB PO SCH (08:16)
[2020-02-16] MEDS: Carvedilol 6.25 MG TAB PO SCH (08:16)
[2020-02-16] MEDS: Potassium Chloride 10 MEQ TAB PO SCH ×2 (08:17→12:22)
[2020-02-16] MEDS ORDERED: Furosemide 40 MG TAB PO SCH (09:00)
[2020-02-16] MEDS ORDERED: PARoxetine 20 MG TAB PO SCH (09:00)
[2020-02-16] MEDS ORDERED: Ferrous Sulfate 325 MG TAB PO SCH (09:00)
[2020-02-16] MEDS ORDERED: Aspirin 81 mg Enteric Coated Tablet PO SCH (09:00)
[2020-02-16] MEDS ORDERED: Losartan 25 MG TAB PO SCH (09:00)
[2020-02-16 11:56] VITALS: TEMP 97.7
[2020-02-16 12:23] VITALS: BP 106/74
== END 2020-02-16 12:45 | disposition home or self-care (01) | DRG 483 ==
LOC: SURG A 02-15 06:00
PROVIDERS: ADMIT Orthopaedic Surgery; ATTEND Orthopaedic Surgery
PROC: 0RRK00Z Replacement of Left Shoulder Joint with Reverse Ball and Socket Synthetic Substitute, Open Approach (ICD-10-PCS; principal; 2020-02-15)
PROC: 0RPK04Z Removal of Internal Fixation Device from Left Shoulder Joint, Open Approach (ICD-10-PCS; 2020-02-15)
DX: M75.102 Unspecified rotator cuff tear or rupture of left shoulder, not specified as traumatic (principal); I42.8 Other cardiomyopathies; J43.9 Emphysema, unspecified; K21.9 Gastro-esophageal reflux disease without esophagitis; G47.00 Insomnia, unspecified; I73.9 Peripheral vascular disease, unspecified; E78.00 Pure hypercholesterolemia, unspecified; I10 Essential (primary) hypertension; E11.9 Type 2 diabetes mellitus without complications; Z88.0 Allergy status to penicillin; Z88.5 Allergy status to narcotic agent; Z91.040 Latex allergy status; Z88.8 Allergy status to other drugs, medicaments and biological substances; Z90.710 Acquired absence of both cervix and uterus
CPT/HCPCS: 80048; 81001; 84703; 85025; 87635; 93005; A4306; J0690; J1100; J2001; J2250; J2370; J2405; J2550; J2704; J2795; J3010; J3370; J3490; U0003

== ENCOUNTER 2020-06-28 13:59 | Outpatient (CLI) | payer MEDICARE, MEDICAID ==
--- NOTE | 2020-06-28 14:40 | MMO ---
Bilateral MAMMO Bilat Screen [facility]. CLINICAL HISTORY: Patient is 59 years old and is seen for screening. The patient has no family history of breast cancer. The patient has no personal history of cancer. The patient has a history of right Excisional Biopsy in 2006 - benign. VIEWS: The views performed were: bilateral craniocaudal with tomosynthesis and bilateral mediolateral oblique with tomosynthesis. FILMS COMPARED: The present examination has been compared to prior imaging studies performed at [facility] on 06/18/2011, 06/23/2016, 12/13/2017 and 01/19/2019. This study has been interpreted with the assistance of computer-aided detection. MAMMOGRAM FINDINGS: There are scattered fibroglandular densities. There are stable post-operative changes right breast. There are no suspicious masses, suspicious calcifications, or new areas of architectural distortion. IMPRESSION: THERE IS NO MAMMOGRAPHIC EVIDENCE OF MALIGNANCY. A ROUTINE FOLLOW-UP MAMMOGRAM IN 1 YEAR IS RECOMMENDED. THE RESULTS OF THIS EXAM WERE SENT TO THE PATIENT. ACR BI-RADS Category 2 - Benign finding MAMMOGRAPHY NOTE: 1. A negative mammogram report should not delay a biopsy if a dominant of clinically suspicious mass is present. 2. Approximately 10% to 15% of breast cancers are not detected by mammography. 3. Adenosis and dense breasts may obscure an underlying neoplasm. Reported by: AKHIL FOSTER MD Electonically Signed: [id number]
== END 2020-06-28 14:00 | disposition home or self-care (01) ==
LOC: BICMAMMO 13:59
PROVIDERS: ATTEND Family Medicine
DX: Z12.31 Encounter for screening mammogram for malignant neoplasm of breast (principal); Z91.89 Other specified personal risk factors, not elsewhere classified
CPT/HCPCS: 77063; 77067

== ENCOUNTER 2021-06-15 13:48 | Emergency (ER) | payer MEDICARE, MEDICAID ==
[2021-06-15] MEDS ORDERED: Acetaminophen 500 MG TAB ONE (14:33)
[2021-06-15] MEDS ORDERED: Ketorolac Tromethamine 30 MG/ML VIAL ONE (14:33)
[2021-06-15] MEDS ORDERED: Orphenadrine Citrate 60 MG/2 ML VIAL IM SCH (14:45)
[2021-06-15 15:24] LABS: #Basophils 0.1 thou/uL (0.0-0.2); #Eosinphils 0.2 thou/uL (0.0-0.7); #Lymphocytes 2.3 thou/uL (1.20-3.40); #Monocytes 0.5 thou/uL (0.11-0.59); #Neutrophils 3.9 thou/uL (1.40-6.50); %Basophils 0.9 % (0.0-1.0); %Eosinophils 2.8 % (0.0-10.0); %Lymphocytes 33.1 % (21.0-51.0); %Monocytes 7.2 % (0.0-10.0); %Neutrophils 56.1 % (42.0-75.0); Hemoglobin 13.2 g/dL (12.0-16.0); Mean Corpuscular HGB CONC 33.2 g/dL (32.0-36.0); Mean Corpuscular Hemoglobin 29.8 pg (27.0-31.0); Mean Corpuscular Volume 89.8 fL (78.0-98.0); Platelet Count 243 thou/uL (130-400); RBC Distribution Width 12.9 % (11.5-14.5); Red Blood Cell (RBC) Count 4.42 mill/uL (4.20-5.40); White Blood Cell (WBC) Count 6.9 thou/uL (4.8-10.8)
[2021-06-15 15:42] LABS: Bilirubin Negative (Negative); Blood, Urine Negative (Negative); Clarity Clear (Clear); Glucose, Urine (Dipstick) Normal (Negative); Ketone, Urine Negative (Negative); Leukocyte Negative Leu/uL (Negative); Nitrite Negative (Negative); Protein, Urine (Dipstick) Negative (Neg-Trace); Specific Gravity, Urine 1.017 (1.002-1.036); Urobilinogen Normal mg/dL (Less than 2); pH, Urine 6.5 (5.0-9.0)
[2021-06-15 15:44] LABS: ALT (SGPT) 18 U/L (8-55); AST (SGOT) 20 U/L (5-34); Albumin 4.5 g/dL (3.4-4.8); Alkaline Phosphatase 107 U/L (40-110); Anion Gap 14 mmol/L (10-20); BUN (Urea Nitrogen) 14 mg/dL (9.8-20.1); Bilirubin, Total 0.4 mg/dL (0.2-1.2); Calc. Creatinine Clearance 0 mL/min (70-130); Calcium 9.7 mg/dL (7.8-10.44); Carbon Dioxide 24 mmol/L (23-31); Chloride 103 mmol/L (98-107); Globulin 3.3 g/dL (2.4-3.5); Glucose 105 mg/dL (80-115); Magnesium 1.9 mg/dL (1.6-2.6); Potassium 4.4 mmol/L (3.5-5.1); Protein, Total 7.8 g/dL (5.8-8.1); Sodium 137 mmol/L (136-145)
[2021-06-15] MEDS ORDERED: Meclizine HCl 25 MG TAB ONE ×2 (16:06)
== END 2021-06-15 18:05 | disposition home or self-care (01) ==
LOC: ERS 13:48
DX: M62.830 Muscle spasm of back (principal); R42 Dizziness and giddiness; I11.0 Hypertensive heart disease with heart failure; I50.9 Heart failure, unspecified; E11.9 Type 2 diabetes mellitus without complications; E78.5 Hyperlipidemia, unspecified; F17.220 Nicotine dependence, chewing tobacco, uncomplicated
CPT/HCPCS: 36415; 71045; 80053; 81003; 83735; 83880; 84484; 85025; 93005; 96372; J1885; J2360

== ENCOUNTER 2021-08-11 15:11 | Outpatient (CLI) | payer MEDICARE, MEDICAID | END 2021-08-11 15:12 | disposition home or self-care (01) | LOC: BICULT 15:11 | PROVIDERS: ATTEND Family Medicine | DX: M79.89 Other specified soft tissue disorders (principal) | CPT/HCPCS: 76999 ==

== ENCOUNTER 2021-12-19 08:43 | Outpatient (CLI) | payer MEDICAID, MEDICARE | END 2021-12-19 08:44 | disposition home or self-care (01) | LOC: BICMAMMO 08:43 | PROVIDERS: ATTEND Family Medicine | DX: Z12.31 Encounter for screening mammogram for malignant neoplasm of breast (principal); Z13.820 Encounter for screening for osteoporosis; Z78.0 Asymptomatic menopausal state; Z91.89 Other specified personal risk factors, not elsewhere classified | CPT/HCPCS: 77063; 77067; 77080 ==

== ENCOUNTER 2021-12-31 08:25 | Emergency (ER) | payer MEDICAID, MEDICARE ==
[2021-12-31] MEDS ORDERED: Acetaminophen 500 MG TAB ONE (09:50)
== END 2021-12-31 10:35 | disposition home or self-care (01) ==
LOC: ERS 08:25
DX: J18.9 Pneumonia, unspecified organism (principal); I25.10 Atherosclerotic heart disease of native coronary artery without angina pectoris; E11.9 Type 2 diabetes mellitus without complications; E78.2 Mixed hyperlipidemia; J45.909 Unspecified asthma, uncomplicated; D50.9 Iron deficiency anemia, unspecified
CPT/HCPCS: 71045

== ENCOUNTER 2022-03-26 15:50 | Emergency (ER) | payer MEDICARE, MEDICAID ==
[2022-03-26] MEDS ORDERED: HYDROcodone/Acetaminophen 10/325 mg Tablet ONE (16:57)
[2022-03-26 17:50] LABS: ALT (SGPT) 15 U/L (8-55); AST (SGOT) 24 U/L (5-34); Alkaline Phosphatase 100 U/L (40-110); Anion Gap 15 mmol/L (10-20); BUN (Urea Nitrogen) 13 mg/dL (9.8-20.1); Bilirubin, Total 0.5 mg/dL (0.2-1.2); Calc. Creatinine Clearance 0 mL/min (70-130); Calcium 9.2 mg/dL (7.8-10.44); Carbon Dioxide 24 mmol/L (23-31); Chloride 107 mmol/L (98-107); Estimated GFR 69; Globulin 3.1 g/dL (2.4-3.5); Glucose 87 mg/dL (80-115); Potassium 3.3 mmol/L (3.5-5.1); Protein, Total 7.1 g/dL (5.8-8.1); Sodium 143 mmol/L (136-145)
== END 2022-03-26 18:10 | disposition home or self-care (01) ==
LOC: ERS 15:50
DX: M79.642 Pain in left hand (principal); M25.561 Pain in right knee; I25.10 Atherosclerotic heart disease of native coronary artery without angina pectoris; I11.0 Hypertensive heart disease with heart failure; I50.9 Heart failure, unspecified; E11.9 Type 2 diabetes mellitus without complications; E78.00 Pure hypercholesterolemia, unspecified; F17.220 Nicotine dependence, chewing tobacco, uncomplicated
CPT/HCPCS: 36415; 80053

== ENCOUNTER 2022-04-23 16:11 | Emergency (ER) | payer MEDICARE, MEDICAID ==
[~2022-04-23 16:11] MED LIST: Iopamidol-370 76% 500 ML 1 ML ONE
[2022-04-23 16:43] LABS: #Eosinphils 0.1 thou/uL (0.0-0.7); #Monocytes 0.6 thou/uL (0.11-0.59); #Neutrophils 9.3 thou/uL (1.40-6.50); %Basophils 0.1 % (0.0-1.0); %Eosinophils 0.9 % (0.0-10.0); %Lymphocytes 9.2 % (21.0-51.0); %Monocytes 5.7 % (0.0-10.0); %Neutrophils 84.2 % (42.0-75.0); Hemoglobin 11.6 g/dL (12.0-16.0); Mean Corpuscular HGB CONC 32.4 g/dL (32.0-36.0); Mean Corpuscular Hemoglobin 29.1 pg (27.0-31.0); Mean Corpuscular Volume 89.7 fL (78.0-98.0); Mean Platelet Volume 8.2 fL (7.4-10.4); Platelet Count 178 thou/uL (130-400); RBC Distribution Width 12.8 % (11.5-14.5); White Blood Cell (WBC) Count 11.1 thou/uL (4.8-10.8)
[2022-04-23 17:03] LABS: ALT (SGPT) 15 U/L (8-55); AST (SGOT) 21 U/L (5-34); Albumin 3.9 g/dL (3.4-4.8); Alkaline Phosphatase 104 U/L (40-110); Anion Gap 14 mmol/L (10-20); BUN (Urea Nitrogen) 11 mg/dL (9.8-20.1); Bilirubin, Total 0.5 mg/dL (0.2-1.2); Calc. Creatinine Clearance 0 mL/min (70-130); Calcium 8.9 mg/dL (7.8-10.44); Carbon Dioxide 23 mmol/L (23-31); Chloride 103 mmol/L (98-107); Estimated GFR 69; Globulin 3.4 g/dL (2.4-3.5); Glucose 97 mg/dL (80-115); Potassium 4.2 mmol/L (3.5-5.1); Protein, Total 7.3 g/dL (5.8-8.1); Sodium 136 mmol/L (136-145)
[2022-04-23] MEDS ORDERED: Diazepam 10 MG/2 ML SYRINGE ONE (17:43)
[2022-04-23] MEDS ORDERED: Ketorolac Tromethamine 30 MG/ML VIAL ONE (17:43)
[2022-04-23 17:50] LABS: Bilirubin Negative (Negative); Blood, Urine Negative (Negative); Clarity Clear (Clear); Glucose, Urine (Dipstick) Normal (Negative); Ketone, Urine Negative (Negative); Leukocyte Negative Leu/uL (Negative); Nitrite Negative (Negative); Protein, Urine (Dipstick) 10 mg/dL (Neg-Trace); Specific Gravity, Urine 1.024 (1.002-1.036); Urobilinogen Normal mg/dL (Less than 2); pH, Urine 7.5 (5.0-9.0)
[2022-04-23] MEDS ORDERED: Acetaminophen 500 MG TAB ONE (18:22)
[2022-04-23] MEDS ORDERED: Cefepime 2 GM VIAL ONE (19:36)
== END 2022-04-23 21:02 | disposition home or self-care (01) ==
LOC: ERS 16:11
DX: M54.50 Low back pain, unspecified (principal); I11.0 Hypertensive heart disease with heart failure; I50.9 Heart failure, unspecified; I25.10 Atherosclerotic heart disease of native coronary artery without angina pectoris; E11.9 Type 2 diabetes mellitus without complications; E78.00 Pure hypercholesterolemia, unspecified; D50.9 Iron deficiency anemia, unspecified; J45.909 Unspecified asthma, uncomplicated
CPT/HCPCS: 36415; 71045; 74177; 80053; 81003; 83605; 83690; 85025; 87040; 87086; 93005; 94760; 96372; 96374; J0692; J1885; J3360; Q9967

== ENCOUNTER 2022-10-16 13:33 | Emergency (ER) | payer MEDICARE, MEDICAID ==
[2022-10-16] MEDS ORDERED: Boostrix 0.5 ML (Tdap) VIAL (>/=7 yrs of age) ONE (13:48)
[2022-10-16] MEDS ORDERED: Lidocaine 1% w/Epinephrine 1:100K 20 ML VIAL ONE (13:48)
[2022-10-16] MEDS ORDERED: Acetaminophen 500 MG TAB ONE (14:00)
== END 2022-10-16 15:20 | disposition home or self-care (01) ==
LOC: ERS 13:33
DX: S43.402A Unspecified sprain of left shoulder joint, initial encounter (principal); I25.10 Atherosclerotic heart disease of native coronary artery without angina pectoris; E11.9 Type 2 diabetes mellitus without complications; I10 Essential (primary) hypertension; E78.5 Hyperlipidemia, unspecified; Z23 Encounter for immunization; Z87.891 Personal history of nicotine dependence; X50.0XXA Overexertion from strenuous movement or load, initial encounter
CPT/HCPCS: 90715

== ENCOUNTER 2022-11-14 11:20 | Emergency (ER) | payer MEDICARE, MEDICAID ==
[2022-11-14 12:34] LABS: #Basophils 0.1 thou/uL (0.0-0.2); #Eosinphils 0.3 thou/uL (0.0-0.7); #Lymphocytes 2.4 thou/uL (1.20-3.40); #Monocytes 0.7 thou/uL (0.11-0.59); #Neutrophils 4.4 thou/uL (1.40-6.50); %Basophils 0.8 % (0.0-1.0); %Eosinophils 3.7 % (0.0-10.0); %Lymphocytes 30.6 % (21.0-51.0); %Monocytes 8.9 % (0.0-10.0); Hemoglobin 11.8 g/dL (12.0-16.0); Mean Corpuscular HGB CONC 31.3 g/dL (32.0-36.0); Mean Corpuscular Hemoglobin 29.1 pg (27.0-31.0); Mean Corpuscular Volume 93.2 fl (78.0-98.0); Mean Platelet Volume 7.9 fL (7.4-10.4); Platelet Count 240 10x3/uL (130-400); RBC Distribution Width 12.1 % (11.5-14.5); Red Blood Cell (RBC) Count 4.03 mill/uL (4.20-5.40); White Blood Cell (WBC) Count 7.9 10x3/uL (4.8-10.8)
[2022-11-14 12:56] LABS: ALT (SGPT) 10 U/L (8-55); AST (SGOT) 16 U/L (5-34); Alkaline Phosphatase 101 U/L (40-110); Anion Gap 12 mmol/L (10-20); BUN (Urea Nitrogen) 11 mg/dL (9.8-20.1); Bilirubin, Total 0.3 mg/dL (0.2-1.2); Calc. Creatinine Clearance 0 mL/min (70-130); Calcium 9.6 mg/dL (7.8-10.44); Carbon Dioxide 28 mmol/L (23-31); Chloride 107 mmol/L (98-107); Estimated GFR 64; Globulin 3.6 g/dL (2.4-3.5); Glucose 99 mg/dL (80-115); Potassium 4.1 mmol/L (3.5-5.1); Protein, Total 7.6 g/dL (5.8-8.1); Sodium 143 mmol/L (136-145)
[2022-11-14 13:36] LABS: SARS-CoV-2 NAA Rapid Test Not Detected (NotDetected)
== END 2022-11-14 13:57 | disposition home or self-care (01) ==
LOC: ERS 11:20
DX: J18.9 Pneumonia, unspecified organism (principal); E11.9 Type 2 diabetes mellitus without complications; E78.00 Pure hypercholesterolemia, unspecified; I11.0 Hypertensive heart disease with heart failure; I50.9 Heart failure, unspecified; Z87.891 Personal history of nicotine dependence; Z20.822 Contact with and (suspected) exposure to COVID-19; Z79.82 Long term (current) use of aspirin
CPT/HCPCS: 0240U; 71045; 80053; 84484; 85025; 93005; 36415

== ENCOUNTER 2022-12-04 13:21 | Inpatient (IN) | payer MEDICARE, MEDICAID ==
[~2022-12-04 13:21] MED LIST changes: +Iopamidol 370 76% 100 ML VIAL ONE; -Iopamidol-370 76% 500 ML 1 ML ONE
[2022-12-04 13:57] LABS: #Basophils 0.1 thou/uL (0.0-0.2); #Eosinphils 0.3 thou/uL (0.0-0.7); #Lymphocytes 1.8 thou/uL (1.20-3.40); #Monocytes 0.5 thou/uL (0.11-0.59); #Neutrophils 3.2 thou/uL (1.40-6.50); %Basophils 1.4 % (0.0-1.0); %Eosinophils 4.4 % (0.0-10.0); %Lymphocytes 30.8 % (21.0-51.0); %Monocytes 9.1 % (0.0-10.0); %Neutrophils 54.4 % (42.0-75.0); Hemoglobin 10.3 g/dL (12.0-16.0); Mean Corpuscular HGB CONC 32.8 g/dL (32.0-36.0); Mean Corpuscular Volume 91.5 fl (78.0-98.0); Mean Platelet Volume 8.3 fL (7.4-10.4); Platelet Count 187 10x3/uL (130-400); RBC Distribution Width 12.8 % (11.5-14.5); Red Blood Cell (RBC) Count 3.42 mill/uL (4.20-5.40); White Blood Cell (WBC) Count 5.8 10x3/uL (4.8-10.8)
[2022-12-04 14:26] LABS: ALT (SGPT) 24 U/L (8-55); AST (SGOT) 40 U/L (5-34); Albumin 3.6 g/dL (3.4-4.8); Alkaline Phosphatase 94 U/L (40-110); Anion Gap 11 mmol/L (10-20); BUN (Urea Nitrogen) 11 mg/dL (9.8-20.1); Bilirubin, Total 0.4 mg/dL (0.2-1.2); CK (CPK) 337 U/L (29-168); Calc. Creatinine Clearance 0 mL/min (70-130); Carbon Dioxide 27 mmol/L (23-31); Chloride 108 mmol/L (98-107); Estimated GFR 77; Glucose 94 mg/dL (80-115); Lipase 28 U/L (8-78); Magnesium 1.7 mg/dL (1.6-2.6); Potassium 3.3 mmol/L (3.5-5.1); Protein, Total 6.6 g/dL (5.8-8.1); Sodium 143 mmol/L (136-145)
[2022-12-04 14:32] LABS: SARS-CoV-2 NAA Rapid Test Not Detected (NotDetected)
[2022-12-04] MEDS ORDERED: Ketorolac Tromethamine 30 MG/ML VIAL ONE (14:43)
[2022-12-04 14:45] LABS: CKMB 2.2 ng/mL (0-6.6)
[2022-12-04] MEDS ORDERED: Cyclobenzaprine 10 MG TAB ONE (15:22)
[2022-12-04] MEDS ORDERED: Potassium Chloride 20 MEQ TAB ONE (15:22)
[2022-12-04] MEDS ORDERED: Nitroglycerin 0.4 MG TAB 1 EACH ONE (15:22)
[2022-12-04] MEDS ORDERED: Dextrose 5% in Water 1,000 ML IV PRN (15:54)
[2022-12-04] MEDS ORDERED: Dextrose 50% Abboject 50 ML SYRINGE SLOW IVP PRN (15:54)
[2022-12-04] MEDS ORDERED: Ondansetron PF 4 MG/2 ML Vial IVP PRN (15:54)
[2022-12-04] MEDS ORDERED: Acetaminophen 325 MG TAB PO PRN (15:54)
[2022-12-04] MEDS ORDERED: HumaLOG 300 UNITS/3 ML VIAL SC PRN (15:56)
[2022-12-04] MEDS ORDERED: Furosemide 40 MG/4 ML VIAL SLOW IVP SCH (16:00)
[2022-12-04] MEDS ORDERED: Albuterol HFA (OR) 200 PUFF INH INH PRN (16:30)
[2022-12-04 18:52] VITALS: BMI 25.4
[2022-12-04 19:39] LABS: Troponin I 0.052 ng/mL (< 0.028)
[2022-12-04 20:22] LABS: Troponin I 0.051 ng/mL (< 0.028)
[2022-12-04] MEDS: HYDROcodone/Acetaminophen 10/325 mg Tablet PO PRN (20:22)
[2022-12-04] MEDS: Atorvastatin Calcium 40 MG TAB PO SCH (21:44)
[2022-12-04] MEDS ORDERED: Electrolyte Replacement Protocol FS SCH (21:45)
[2022-12-04] MEDS: Pregabalin 50 MG CAP PO SCH (21:46)
[2022-12-04] MEDS: Lorazepam 1 MG TAB PO SCH (21:46)
[2022-12-04] MEDS: Amitriptyline HCl 25 MG TAB PO SCH (21:48)
[2022-12-04] MEDS: Carvedilol 6.25 MG TAB PO SCH (21:50)
[2022-12-05] MEDS ORDERED: Magnesium 2 GM/50 ML(in water) 2 GM in Premix Bag 1 BAG IVPB SCH ×2 (05:00→06:00)
[2022-12-05] MEDS ORDERED: Potassium Chloride 20 MEQ TAB PO SCH (05:00)
[2022-12-05 05:13] LABS: #Eosinphils 0.2 thou/uL (0.0-0.7); #Lymphocytes 1.3 thou/uL (1.20-3.40); #Monocytes 0.5 thou/uL (0.11-0.59); %Basophils 0.3 % (0.0-1.0); %Eosinophils 4.9 % (0.0-10.0); %Lymphocytes 26.3 % (21.0-51.0); %Monocytes 9.2 % (0.0-10.0); %Neutrophils 59.3 % (42.0-75.0); Hemoglobin 10.4 g/dL (12.0-16.0); Mean Corpuscular Hemoglobin 30.7 pg (27.0-31.0); Mean Corpuscular Volume 92.9 fl (78.0-98.0); Mean Platelet Volume 8.7 fL (7.4-10.4); Platelet Count 167 10x3/uL (130-400); RBC Distribution Width 12.7 % (11.5-14.5); Red Blood Cell (RBC) Count 3.39 mill/uL (4.20-5.40)
[2022-12-05 05:40] LABS: Anion Gap 15 mmol/L (10-20); BUN (Urea Nitrogen) 16 mg/dL (9.8-20.1); Calc. Creatinine Clearance 67 mL/min (70-130); Calcium 8.9 mg/dL (7.8-10.44); Carbon Dioxide 25 mmol/L (23-31); Chloride 106 mmol/L (98-107); Estimated GFR 65; Glucose 112 mg/dL (80-115); Magnesium 1.5 mg/dL (1.6-2.6); Potassium 3.6 mmol/L (3.5-5.1); Sodium 142 mmol/L (136-145)
[2022-12-05] MEDS: Furosemide 40 MG/4 ML VIAL SLOW IVP SCH ×2 (06:15→14:16)
[2022-12-05] MEDS ORDERED: Losartan 25 MG TAB PO SCH (09:00)
[2022-12-05] MEDS: Pregabalin 50 MG CAP PO SCH ×3 (09:13→20:34)
[2022-12-05] MEDS: Potassium Chloride 20 MEQ TAB PO SCH (09:14)
[2022-12-05] MEDS: PARoxetine 20 MG TAB PO SCH (09:14)
[2022-12-05] MEDS: Glimepiride 2 MG TAB PO SCH (09:14)
[2022-12-05] MEDS: Carvedilol 6.25 MG TAB PO SCH ×2 (09:14→20:34)
[2022-12-05] MEDS: Ferrous Sulfate 325 MG TAB PO SCH (09:15)
[2022-12-05] MEDS: Aspirin 81 mg Enteric Coated Tablet PO SCH (09:16)
[2022-12-05] MEDS: Sacubitril 24MG/Valsartan 26 MG TAB PO SCH ×2 (09:18→20:34)
[2022-12-05] MEDS: Atorvastatin Calcium 40 MG TAB PO SCH (20:33)
[2022-12-05] MEDS: Amitriptyline HCl 25 MG TAB PO SCH (20:35)
[2022-12-05] MEDS: Lorazepam 1 MG TAB PO SCH (20:36)
[2022-12-05] MEDS: HYDROcodone/Acetaminophen 10/325 mg Tablet PO PRN (20:38)
[2022-12-06 05:00] LABS: Anion Gap 14 mmol/L (10-20); BUN (Urea Nitrogen) 17 mg/dL (9.8-20.1); Calc. Creatinine Clearance 48 mL/min (70-130); Calcium 8.6 mg/dL (7.8-10.44); Carbon Dioxide 28 mmol/L (23-31); Cardiac Risk 2.4 (Less than 4.5); Chloride 101 mmol/L (98-107); Cholesterol 110 mg/dl (< 200 Desired); Estimated GFR 43; Glucose 125 mg/dL (80-115); HDL Cholesterol 46 mg/dL (>60 Neg Risk); LDL Cholesterol, Calculated 50 mg/dL; Magnesium 1.7 mg/dL (1.6-2.6); Potassium 3.3 mmol/L (3.5-5.1); Sodium 140 mmol/L (136-145); Triglycerides 70 mg/dL (Less than 150)
[2022-12-06 05:04] LABS: Phosphorus 3.9 mg/dL (2.3-4.7)
[2022-12-06] MEDS: Furosemide 40 MG/4 ML VIAL SLOW IVP SCH (06:30)
[2022-12-06] MEDS: Glimepiride 2 MG TAB PO SCH (09:24)
[2022-12-06] MEDS: PARoxetine 20 MG TAB PO SCH (09:25)
[2022-12-06] MEDS: Aspirin 81 mg Enteric Coated Tablet PO SCH (09:25)
[2022-12-06] MEDS: Ferrous Sulfate 325 MG TAB PO SCH (09:25)
[2022-12-06] MEDS: Potassium Chloride 20 MEQ TAB PO SCH (09:25)
[2022-12-06] MEDS: Pregabalin 50 MG CAP PO SCH ×3 (09:26→21:54)
[2022-12-06] MEDS: Carvedilol 6.25 MG TAB PO SCH ×2 (09:26→21:53)
[2022-12-06] MEDS ORDERED: Potassium Chloride 20 MEQ TAB PO SCH (09:45)
[2022-12-06] MEDS: Sacubitril 24MG/Valsartan 26 MG TAB PO SCH ×2 (12:13→21:53)
[2022-12-06] MEDS: Atorvastatin Calcium 40 MG TAB PO SCH (21:53)
[2022-12-06] MEDS: Amitriptyline HCl 25 MG TAB PO SCH (21:54)
[2022-12-07 05:15] LABS: #Eosinphils 0.3 thou/uL (0.0-0.7); #Monocytes 0.7 thou/uL (0.11-0.59); #Neutrophils 2.1 thou/uL (1.40-6.50); %Basophils 0.2 % (0.0-1.0); %Eosinophils 6.6 % (0.0-10.0); %Lymphocytes 38.6 % (21.0-51.0); %Monocytes 13.6 % (0.0-10.0); Hemoglobin 11.5 g/dL (12.0-16.0); Mean Corpuscular HGB CONC 33.4 g/dL (32.0-36.0); Mean Corpuscular Hemoglobin 30.6 pg (27.0-31.0); Mean Corpuscular Volume 91.6 fl (78.0-98.0); Mean Platelet Volume 8.9 fL (7.4-10.4); Platelet Count 187 10x3/uL (130-400); RBC Distribution Width 12.7 % (11.5-14.5); Red Blood Cell (RBC) Count 3.75 mill/uL (4.20-5.40); White Blood Cell (WBC) Count 5.1 10x3/uL (4.8-10.8)
[2022-12-07 05:33] LABS: Anion Gap 12 mmol/L (10-20); BUN (Urea Nitrogen) 17 mg/dL (9.8-20.1); Calc. Creatinine Clearance 66 mL/min (70-130); Calcium 9.1 mg/dL (7.8-10.44); Carbon Dioxide 27 mmol/L (23-31); Chloride 104 mmol/L (98-107); Estimated GFR 66; Glucose 82 mg/dL (80-115); Magnesium 1.7 mg/dL (1.6-2.6); Potassium 3.4 mmol/L (3.5-5.1); Sodium 140 mmol/L (136-145)
[2022-12-07] MEDS: Sacubitril 24MG/Valsartan 26 MG TAB PO SCH (10:26)
[2022-12-07] MEDS: Pregabalin 50 MG CAP PO SCH ×3 (10:27→20:16)
[2022-12-07] MEDS: Potassium Chloride 20 MEQ TAB PO SCH (10:27)
[2022-12-07] MEDS: Furosemide 40 MG/4 ML VIAL SLOW IVP SCH (10:27)
[2022-12-07] MEDS: Ferrous Sulfate 325 MG TAB PO SCH (10:27)
[2022-12-07] MEDS: Carvedilol 6.25 MG TAB PO SCH ×2 (10:28→20:16)
[2022-12-07] MEDS: PARoxetine 20 MG TAB PO SCH (10:28)
[2022-12-07] MEDS: Glimepiride 2 MG TAB PO SCH (10:29)
[2022-12-07] MEDS: Aspirin 81 mg Enteric Coated Tablet PO SCH (10:29)
[2022-12-07] MEDS ORDERED: Potassium Bicarbonate/Cit Ac 20 MEQ TAB PO SCH (15:45)
[2022-12-07] MEDS: Atorvastatin Calcium 40 MG TAB PO SCH (20:16)
[2022-12-07] MEDS: Amitriptyline HCl 25 MG TAB PO SCH (20:16)
[2022-12-08] MEDS ORDERED: Benzonatate 100 MG CAP PO PRN (00:07)
[2022-12-08] MEDS: Sacubitril 24MG/Valsartan 26 MG TAB PO SCH ×3 (00:19→20:36)
[2022-12-08] MEDS ORDERED: Sevoflurane 250 ML INH ANEST BOTTLE ONE (03:44)
[2022-12-08 05:17] LABS: Anion Gap 14 mmol/L (10-20); BUN (Urea Nitrogen) 21 mg/dL (9.8-20.1); Calc. Creatinine Clearance 68 mL/min (70-130); Calcium 8.8 mg/dL (7.8-10.44); Carbon Dioxide 28 mmol/L (23-31); Chloride 105 mmol/L (98-107); Estimated GFR 66; Glucose 106 mg/dL (80-115); Potassium 4.3 mmol/L (3.5-5.1); Sodium 143 mmol/L (136-145)
[2022-12-08 05:18] LABS: Hemoglobin 10.9 g/dL (12.0-16.0); Mean Corpuscular HGB CONC 33.2 g/dL (32.0-36.0); Mean Corpuscular Hemoglobin 30.5 pg (27.0-31.0); Mean Corpuscular Volume 91.9 fl (78.0-98.0); Mean Platelet Volume 8.9 fL (7.4-10.4); Platelet Count 195 10x3/uL (130-400); RBC Distribution Width 12.8 % (11.5-14.5); Red Blood Cell (RBC) Count 3.56 mill/uL (4.20-5.40); White Blood Cell (WBC) Count 5.9 10x3/uL (4.8-10.8)
[2022-12-08 05:19] LABS: Eosinophils 2 % (0-10); Hypochromia SLIGHT = 6-15 cells (100X) (0-5/hpf); Lymphocytes 15 % (21-51); MDiff Complete? YES; Monocytes 29 % (0-10); Neutrophil 53 % (42-75); Platelet Morphology Comment Appears Adequate
[2022-12-08] MEDS: Potassium Chloride 20 MEQ TAB PO SCH (08:37)
[2022-12-08] MEDS: Aspirin 81 mg Enteric Coated Tablet PO SCH (08:37)
[2022-12-08] MEDS: PARoxetine 20 MG TAB PO SCH (08:37)
[2022-12-08] MEDS: Carvedilol 6.25 MG TAB PO SCH ×2 (08:37→20:36)
[2022-12-08] MEDS: Ferrous Sulfate 325 MG TAB PO SCH (08:37)
[2022-12-08] MEDS: Pregabalin 50 MG CAP PO SCH ×3 (08:38→20:37)
[2022-12-08] MEDS: Furosemide 40 MG/4 ML VIAL SLOW IVP SCH (08:39)
[2022-12-08] MEDS ORDERED: PROPOFOL 200 MG/20 ML VIAL ONE (11:11)
[2022-12-08] MEDS: Glimepiride 2 MG TAB PO SCH (13:20)
[2022-12-08] MEDS: Amitriptyline HCl 25 MG TAB PO SCH (20:37)
[2022-12-08] MEDS: Atorvastatin Calcium 40 MG TAB PO SCH (20:37)
[2022-12-09 05:11] LABS: #Basophils 0.1 thou/uL (0.0-0.2); #Eosinphils 0.3 thou/uL (0.0-0.7); #Lymphocytes 2.5 thou/uL (1.20-3.40); #Monocytes 0.8 thou/uL (0.11-0.59); %Basophils 0.8 % (0.0-1.0); %Eosinophils 4.5 % (0.0-10.0); %Lymphocytes 37.7 % (21.0-51.0); %Monocytes 11.9 % (0.0-10.0); %Neutrophils 45.1 % (42.0-75.0); Hemoglobin 10.9 g/dL (12.0-16.0); Mean Corpuscular HGB CONC 32.7 g/dL (32.0-36.0); Mean Corpuscular Volume 91.8 fl (78.0-98.0); Mean Platelet Volume 8.9 fL (7.4-10.4); Platelet Count 203 10x3/uL (130-400); RBC Distribution Width 12.6 % (11.5-14.5); Red Blood Cell (RBC) Count 3.63 mill/uL (4.20-5.40); White Blood Cell (WBC) Count 6.6 10x3/uL (4.8-10.8)
[2022-12-09 05:34] LABS: Anion Gap 13 mmol/L (10-20); BUN (Urea Nitrogen) 23 mg/dL (9.8-20.1); Calc. Creatinine Clearance 53 mL/min (70-130); Calcium 8.8 mg/dL (7.8-10.44); Carbon Dioxide 28 mmol/L (23-31); Chloride 105 mmol/L (98-107); Estimated GFR 49; Glucose 142 mg/dL (80-115); Potassium 4.1 mmol/L (3.5-5.1); Sodium 142 mmol/L (136-145)
[2022-12-09] MEDS: Aspirin 81 mg Enteric Coated Tablet PO SCH (09:48)
[2022-12-09] MEDS: Glimepiride 2 MG TAB PO SCH (09:48)
[2022-12-09] MEDS: Carvedilol 6.25 MG TAB PO SCH ×2 (09:49→21:07)
[2022-12-09] MEDS: Ferrous Sulfate 325 MG TAB PO SCH (09:50)
[2022-12-09] MEDS: Potassium Chloride 20 MEQ TAB PO SCH (09:51)
[2022-12-09] MEDS: PARoxetine 20 MG TAB PO SCH (09:51)
[2022-12-09] MEDS: Sacubitril 24MG/Valsartan 26 MG TAB PO SCH (09:52)
[2022-12-09] MEDS: Pregabalin 50 MG CAP PO SCH ×3 (09:52→21:07)
[2022-12-09] MEDS: Furosemide 40 MG/4 ML VIAL SLOW IVP SCH (09:53)
[2022-12-09] MEDS ORDERED: Polyethylene Glycol 3350 17 GM Packet PO SCH (13:00)
[2022-12-09] MEDS: HYDROcodone/Acetaminophen 10/325 mg Tablet PO PRN (15:05)
[2022-12-09] MEDS: Atorvastatin Calcium 40 MG TAB PO SCH (21:07)
[2022-12-09] MEDS: Amitriptyline HCl 25 MG TAB PO SCH (21:07)
[2022-12-10] MEDS: Sacubitril 24MG/Valsartan 26 MG TAB PO SCH ×3 (05:46→22:54)
[2022-12-10 08:04] LABS: #Eosinphils 0.3 thou/uL (0.0-0.7); #Lymphocytes 1.8 thou/uL (1.20-3.40); #Monocytes 0.7 thou/uL (0.11-0.59); #Neutrophils 3.7 thou/uL (1.40-6.50); %Basophils 0.5 % (0.0-1.0); %Eosinophils 4.5 % (0.0-10.0); %Lymphocytes 27.9 % (21.0-51.0); %Monocytes 10.8 % (0.0-10.0); %Neutrophils 56.2 % (42.0-75.0); Mean Corpuscular Volume 93.4 fl (78.0-98.0); Mean Platelet Volume 8.7 fL (7.4-10.4); Platelet Count 214 10x3/uL (130-400); RBC Distribution Width 12.7 % (11.5-14.5); Red Blood Cell (RBC) Count 4.13 mill/uL (4.20-5.40); White Blood Cell (WBC) Count 6.6 10x3/uL (4.8-10.8)
[2022-12-10 08:27] LABS: Anion Gap 14 mmol/L (10-20); BUN (Urea Nitrogen) 27 mg/dL (9.8-20.1); Calc. Creatinine Clearance 63 mL/min (70-130); Calcium 9.1 mg/dL (7.8-10.44); Carbon Dioxide 26 mmol/L (23-31); Chloride 105 mmol/L (98-107); Estimated GFR 60; Glucose 78 mg/dL (80-115); Sodium 140 mmol/L (136-145)
[2022-12-10] MEDS ORDERED: Furosemide 20 MG TAB PO SCH (09:00)
[2022-12-10] MEDS: Ferrous Sulfate 325 MG TAB PO SCH (09:11)
[2022-12-10] MEDS: Aspirin 81 mg Enteric Coated Tablet PO SCH (09:11)
[2022-12-10] MEDS: Potassium Chloride 20 MEQ TAB PO SCH (09:11)
[2022-12-10] MEDS: Carvedilol 6.25 MG TAB PO SCH ×2 (09:12→22:54)
[2022-12-10] MEDS: Pregabalin 50 MG CAP PO SCH ×3 (09:12→20:07)
[2022-12-10] MEDS: Glimepiride 2 MG TAB PO SCH (09:12)
[2022-12-10] MEDS: Furosemide 20 MG TAB PO SCH ×2 (09:12→15:43)
[2022-12-10] MEDS: PARoxetine 20 MG TAB PO SCH (09:20)
[2022-12-10] MEDS: Atorvastatin Calcium 40 MG TAB PO SCH (20:07)
[2022-12-10] MEDS: Amitriptyline HCl 25 MG TAB PO SCH (20:07)
[2022-12-11 05:02] LABS: Hemoglobin 10.8 g/dL (12.0-16.0); Mean Corpuscular HGB CONC 29.5 g/dL (32.0-36.0); Mean Corpuscular Hemoglobin 27.8 pg (27.0-31.0); Mean Corpuscular Volume 94.3 fl (78.0-98.0); Mean Platelet Volume 8.7 fL (7.4-10.4); Platelet Count 198 10x3/uL (130-400); RBC Distribution Width 12.6 % (11.5-14.5); Red Blood Cell (RBC) Count 3.87 mill/uL (4.20-5.40); White Blood Cell (WBC) Count 6.6 10x3/uL (4.8-10.8)
[2022-12-11 05:13] LABS: Anion Gap 16 mmol/L (10-20); BUN (Urea Nitrogen) 19 mg/dL (9.8-20.1); Calc. Creatinine Clearance 61 mL/min (70-130); Calcium 9.1 mg/dL (7.8-10.44); Carbon Dioxide 25 mmol/L (23-31); Chloride 104 mmol/L (98-107); Estimated GFR 58; Glucose 86 mg/dL (80-115); Potassium 4.9 mmol/L (3.5-5.1); Sodium 140 mmol/L (136-145)
[2022-12-11] MEDS: Sacubitril 24MG/Valsartan 26 MG TAB PO SCH (09:10)
[2022-12-11] MEDS: Potassium Chloride 20 MEQ TAB PO SCH (09:10)
[2022-12-11] MEDS: Glimepiride 2 MG TAB PO SCH (09:10)
[2022-12-11] MEDS: Ferrous Sulfate 325 MG TAB PO SCH (09:10)
[2022-12-11] MEDS: Carvedilol 6.25 MG TAB PO SCH (09:10)
[2022-12-11] MEDS: Pregabalin 50 MG CAP PO SCH (09:11)
[2022-12-11] MEDS: PARoxetine 20 MG TAB PO SCH (09:11)
[2022-12-11] MEDS: Aspirin 81 mg Enteric Coated Tablet PO SCH (09:11)
[2022-12-11] MEDS: Furosemide 20 MG TAB PO SCH (09:11)
[2022-12-11 09:28] LABS: Band 1 % (5-11); Eosinophils 1 % (0-10); Lymphocytes 62 % (21-51); MDiff Complete? YES; Monocytes 9 % (0-10); Neutrophil 27 % (42-75); Ovalocytes SLIGHT = 2-5 cells (100X) (0-1/hpf); Platelet Morphology Comment Appears Adequate; Polychromasia SLIGHT = 2-3 cells (100X) (0-2/hpf)
[2022-12-11 12:20] VITALS: BP 109/57; TEMP 97.4
== END 2022-12-11 13:42 | disposition home or self-care (01) | DRG 280 ==
LOC: ERS 13:21 → 2NO 18:25
PROVIDERS: ADMIT Internal Medicine; ATTEND Internal Medicine
PROC: B24BZZ4 Ultrasonography of Heart with Aorta, Transesophageal (ICD-10-PCS; principal; 2022-12-08)
DX: I11.0 Hypertensive heart disease with heart failure (principal); I50.43 Acute on chronic combined systolic (congestive) and diastolic (congestive) heart failure; I21.A1 Myocardial infarction type 2; N17.9 Acute kidney failure, unspecified; Z20.822 Contact with and (suspected) exposure to COVID-19; I42.8 Other cardiomyopathies; I08.3 Combined rheumatic disorders of mitral, aortic and tricuspid valves; I70.0 Atherosclerosis of aorta; E87.6 Hypokalemia; E11.51 Type 2 diabetes mellitus with diabetic peripheral angiopathy without gangrene; E78.5 Hyperlipidemia, unspecified; K21.9 Gastro-esophageal reflux disease without esophagitis; M19.90 Unspecified osteoarthritis, unspecified site; G89.29 Other chronic pain; M54.9 Dorsalgia, unspecified; F41.9 Anxiety disorder, unspecified; F32.A Depression, unspecified; M54.50 Low back pain, unspecified; G47.33 Obstructive sleep apnea (adult) (pediatric); E83.42 Hypomagnesemia; Z88.5 Allergy status to narcotic agent; Z88.0 Allergy status to penicillin; Z88.8 Allergy status to other drugs, medicaments and biological substances; Z91.040 Latex allergy status; Z79.899 Other long term (current) drug therapy; Z90.710 Acquired absence of both cervix and uterus; Z86.73 Personal history of transient ischemic attack (TIA), and cerebral infarction without residual deficits; Z86.718 Personal history of other venous thrombosis and embolism; Z98.890 Other specified postprocedural states; Z79.82 Long term (current) use of aspirin; Z79.84 Long term (current) use of oral hypoglycemic drugs; Z87.891 Personal history of nicotine dependence
CPT/HCPCS: 36415; 36416; 71045; 71275; 80048; 80053; 80061; 82550; 82553; 83690; 83735; 83880; 84100; 84484; 85025; 93005; 93306; 93312; 96374; J1650; J1885; J1940; J2704; J3475; Q9967

== ENCOUNTER 2023-03-04 09:53 | Outpatient (CLI) | payer MEDICARE, MEDICAID ==
[2023-03-04] MEDS ORDERED: Magnevist 469MG/ML 20 ML VIAL ONE (15:22)
== END 2023-03-04 09:54 | disposition home or self-care (01) ==
LOC: MRI 09:53
PROVIDERS: ATTEND Nurse Practitioner Family
DX: R20.0 Anesthesia of skin (principal); R90.82 White matter disease, unspecified
CPT/HCPCS: 70553; A9579

== ENCOUNTER 2023-04-26 02:10 | Observation (INO) | payer MEDICARE, MEDICAID ==
[2023-04-26] MEDS ORDERED: Ipratropium/Albuterol 3 ML NEB ONE (02:23)
[2023-04-26] MEDS ORDERED: Magnesium 2 GM/50 ML BAG (IN WATER) ONE (02:27)
[2023-04-26] MEDS ORDERED: Aspirin Chewable 81 MG TAB ONE (02:27)
[2023-04-26] MEDS ORDERED: methylPREDNISolone Sod Succ/PF 125 MG/2 ML VIAL ONE (02:27)
[2023-04-26 03:02] LABS: #Eosinphils 0.4 thou/uL (0.0-0.7); #Monocytes 0.7 thou/uL (0.11-0.59); #Neutrophils 4.1 thou/uL (1.40-6.50); %Basophils 0.5 % (0.0-1.0); %Monocytes 9.9 % (0.0-10.0); %Neutrophils 54.3 % (42.0-75.0); Hematocrit 30.7 % (36.0-47.0); Hemoglobin 9.6 g/dL (12.0-16.0); Mean Corpuscular HGB CONC 31.3 g/dL (32.0-36.0); Mean Corpuscular Hemoglobin 28.4 pg (27.0-31.0); Mean Corpuscular Volume 90.8 fl (78.0-98.0); Mean Platelet Volume 11.1 fL (7.4-10.4); Platelet Count 198 10x3/uL (130-400); RBC Distribution Width 13.3 % (11.5-14.5); Red Blood Cell (RBC) Count 3.38 mill/uL (4.20-5.40); White Blood Cell (WBC) Count 7.5 10x3/uL (4.8-10.8)
[2023-04-26 03:16] LABS: PTT 38.7 sec (22.9-36.1); Prothrombin Time 13.9 sec (12.0-14.7)
[2023-04-26 03:25] LABS: ALT (SGPT) 26 U/L (8-55); AST (SGOT) 47 U/L (5-34); Albumin 3.6 g/dL (3.4-4.8); Alkaline Phosphatase 113 U/L (40-110); Anion Gap 14 mmol/L (10-20); BUN (Urea Nitrogen) 13 mg/dL (9.8-20.1); Bilirubin, Total 0.3 mg/dL (0.2-1.2); Calc. Creatinine Clearance 0 mL/min (70-130); Calcium 9.3 mg/dL (7.8-10.44); Carbon Dioxide 30 mmol/L (23-31); Chloride 107 mmol/L (98-107); Estimated GFR 64; Globulin 3.2 g/dL (2.4-3.5); Glucose 114 mg/dL (80-115); Magnesium 1.7 mg/dL (1.6-2.6); Potassium 3.8 mmol/L (3.5-5.1); Protein, Total 6.8 g/dL (5.8-8.1); Sodium 147 mmol/L (136-145)
[2023-04-26 03:29] LABS: Troponin I 0.049 ng/mL (< 0.028)
[2023-04-26] MEDS ORDERED: Furosemide 20 MG/2 ML VIAL ONE (04:35)
[2023-04-26] MEDS ORDERED: Furosemide 40 MG/4 ML VIAL ONE (04:35)
[2023-04-26 08:14] LABS: Bacteria/HPF None Seen HPF (None Seen); Bilirubin Negative (Negative); Blood, Urine Negative (Negative); CAUTI Indications for Culture < 2yrs of age; Clarity Clear (Clear); Glucose, Urine (Dipstick) Normal (Negative); Ketone, Urine Negative (Negative); Leukocyte Negative Leu/uL (Negative); Nitrite Negative (Negative); Protein, Urine (Dipstick) Negative (Neg-Trace); RBC/HPF 0-3 HPF (0-3); Specific Gravity, Urine 1.011 (1.002-1.036); Squamous Epithelial 0-3 HPF (0-3); Urobilinogen Normal mg/dL (Less than 2); WBC/HPF None Seen HPF (0-3)
[2023-04-26 08:17] LABS: Urine Culture Reflex Yes Yes
[2023-04-26] MEDS ORDERED: Glucagon 1 MG/ML KIT IM PRN (08:35)
[2023-04-26] MEDS ORDERED: HumaLOG 300 UNITS/3 ML VIAL SC PRN ×2 (08:35)
[2023-04-26] MEDS ORDERED: Dextrose 50% Abboject 50 ML SYRINGE SLOW IVP PRN (08:35)
[2023-04-26] MEDS ORDERED: Dextrose 5% in Water 1,000 ML IV PRN (08:35)
[2023-04-26] MEDS ORDERED: Acetaminophen 325 MG TAB PO PRN (08:35)
[2023-04-26] MEDS ORDERED: Iopamidol-370 76% 500 ML MDV (1 ML CHARGE) ONE (08:58)
[2023-04-26] MEDS ORDERED: Electrolyte Replacement Protocol 1 EACH FS SCH (09:00)
[2023-04-26 09:01] VITALS: BMI 29.0
[2023-04-26 09:42] LABS: Troponin I 0.042 ng/mL (< 0.028)
[2023-04-26] MEDS: Pregabalin 50 MG CAP PO SCH ×3 (10:56→21:42)
[2023-04-26] MEDS: Carvedilol 6.25 MG TAB PO SCH ×2 (10:56→21:41)
[2023-04-26 11:39] LABS: Troponin I 0.046 ng/mL (< 0.028)
[2023-04-26] MEDS: Acetaminophen/Codeine 30-300mg Tablet PO PRN ×2 (13:37→21:41)
[2023-04-26] MEDS: Furosemide 40 MG/4 ML VIAL SLOW IVP SCH (15:18)
[2023-04-26] MEDS: Sacubitril 24MG/Valsartan 26 MG TAB PO SCH (21:41)
[2023-04-26] MEDS: metFORMIN 500 MG TAB PO SCH (21:41)
[2023-04-27 04:51] LABS: #Monocytes 1.1 thou/uL (0.11-0.59); #Neutrophils 6.3 thou/uL (1.40-6.50); %Basophils 0.3 % (0.0-1.0); %Eosinophils 0.4 % (0.0-10.0); %Monocytes 11.5 % (0.0-10.0); %Neutrophils 65.5 % (42.0-75.0); Hematocrit 28.2 % (36.0-47.0); Hemoglobin 8.9 g/dL (12.0-16.0); Mean Corpuscular HGB CONC 31.6 g/dL (32.0-36.0); Mean Corpuscular Hemoglobin 28.4 pg (27.0-31.0); Mean Corpuscular Volume 90.1 fl (78.0-98.0); Mean Platelet Volume 11.1 fL (7.4-10.4); Platelet Count 206 10x3/uL (130-400); RBC Distribution Width 13.4 % (11.5-14.5); Red Blood Cell (RBC) Count 3.13 mill/uL (4.20-5.40); White Blood Cell (WBC) Count 9.6 10x3/uL (4.8-10.8)
[2023-04-27 05:27] LABS: ALT (SGPT) 18 U/L (8-55); AST (SGOT) 20 U/L (5-34); Albumin 3.4 g/dL (3.4-4.8); Alkaline Phosphatase 102 U/L (40-110); Anion Gap 14 mmol/L (10-20); BUN (Urea Nitrogen) 16 mg/dL (9.8-20.1); Bilirubin, Total 0.2 mg/dL (0.2-1.2); Calcium 8.9 mg/dL (7.8-10.44); Carbon Dioxide 31 mmol/L (23-31); Chloride 101 mmol/L (98-107); Globulin 2.9 g/dL (2.4-3.5); Glucose 149 mg/dL (80-115); Potassium 3.1 mmol/L (3.5-5.1); Protein, Total 6.3 g/dL (5.8-8.1); Sodium 143 mmol/L (136-145)
[2023-04-27] MEDS: Furosemide 40 MG/4 ML VIAL SLOW IVP SCH (05:55)
[2023-04-27 06:11] LABS: Calc. Creatinine Clearance 59 mL/min (70-130); Estimated GFR 54
[2023-04-27] MEDS ORDERED: Potassium Chloride 20 MEQ TAB PO SCH (06:15)
[2023-04-27] MEDS ORDERED: Aspirin Chewable 81 MG TAB PO SCH (09:00)
[2023-04-27] MEDS ORDERED: PARoxetine 20 MG TAB PO SCH (09:00)
[2023-04-27] MEDS: Sacubitril 24MG/Valsartan 26 MG TAB PO SCH (09:55)
[2023-04-27] MEDS: metFORMIN 500 MG TAB PO SCH (09:55)
[2023-04-27] MEDS: Pregabalin 50 MG CAP PO SCH ×2 (09:56→14:59)
[2023-04-27] MEDS: Carvedilol 6.25 MG TAB PO SCH (09:57)
[2023-04-27 16:18] LABS: SARS-CoV-2 NAA Rapid Test Not Detected (NotDetected)
[2023-04-27 16:41] VITALS: TEMP 97.7
[2023-04-27 16:46] VITALS: BP 109/61
[2023-04-27] MEDS ORDERED: Furosemide 40 MG TAB PO SCH ×2 (21:00)
== END 2023-04-27 18:40 | disposition home or self-care (01) ==
LOC: ERS 02:10 → ERHOLD 05:19 → 2NO 08:41
PROVIDERS: ADMIT Student in an Organized Health Care Education/Training Program; ATTEND Nurse Practitioner Family
DX: I11.0 Hypertensive heart disease with heart failure (principal); I50.43 Acute on chronic combined systolic (congestive) and diastolic (congestive) heart failure; E78.5 Hyperlipidemia, unspecified; J45.909 Unspecified asthma, uncomplicated; E11.9 Type 2 diabetes mellitus without complications; K21.9 Gastro-esophageal reflux disease without esophagitis; I49.9 Cardiac arrhythmia, unspecified; G47.33 Obstructive sleep apnea (adult) (pediatric); I48.91 Unspecified atrial fibrillation; I48.92 Unspecified atrial flutter; R77.8 Other specified abnormalities of plasma proteins; I73.9 Peripheral vascular disease, unspecified; M19.90 Unspecified osteoarthritis, unspecified site; F41.9 Anxiety disorder, unspecified; D64.9 Anemia, unspecified; F32.A Depression, unspecified; Z95.810 Presence of automatic (implantable) cardiac defibrillator; Z91.040 Latex allergy status; Z88.0 Allergy status to penicillin; Z88.8 Allergy status to other drugs, medicaments and biological substances; Z88.5 Allergy status to narcotic agent; Z79.82 Long term (current) use of aspirin; Z79.899 Other long term (current) drug therapy; Z79.84 Long term (current) use of oral hypoglycemic drugs; Z96.652 Presence of left artificial knee joint; Z98.890 Other specified postprocedural states; Z90.710 Acquired absence of both cervix and uterus; Z90.49 Acquired absence of other specified parts of digestive tract; Z86.73 Personal history of transient ischemic attack (TIA), and cerebral infarction without residual deficits
CPT/HCPCS: 0240U; 71045; 71275; 80053 ×2; 81001; 82962 ×2; 83735; 83880; 84484 ×2; 85025 ×2; 85610; 85730; 87086; 93005; 96376 ×2; 97139; G0378 ×3; 36415; 36416; J1815; J1940; J2930; J3475; J7620; Q9967

== ENCOUNTER 2023-08-25 13:33 | Outpatient (CLI) | payer MEDICARE, MEDICAID | END 2023-08-25 13:34 | disposition home or self-care (01) | LOC: BICMAMMO 13:33 | PROVIDERS: ATTEND Family Medicine | DX: N64.52 Nipple discharge (principal) | CPT/HCPCS: 77066; G0279 ==

== ENCOUNTER 2024-04-28 13:52 | Outpatient (CLI) | payer MEDICARE, MEDICAID ==
[2024-04-28 17:27] LABS: #Basophils 0.04 10x3/uL (0.0-0.2); %Basophils 0.4 % (0.0-1.0); %Eosinophils 3.3 % (0.0-10.0); %Lymphocytes 26.7 % (21.0-51.0); %Monocytes 8.1 % (0.0-10.0); %Neutrophils 61.1 % (42.0-75.0); Hematocrit 35.9 % (36.0-47.0); Hemoglobin 11.7 g/dL (12.0-16.0); Mean Corpuscular HGB CONC 32.6 g/dL (32.0-36.0); Mean Corpuscular Hemoglobin 30.3 pg (27.0-31.0); Mean Platelet Volume 11.4 fL (7.4-10.4); Platelet Count 246 10x3/uL (130-400); RBC Distribution Width 12.8 % (11.5-14.5); Red Blood Cell (RBC) Count 3.86 mill/uL (4.20-5.40)
[2024-04-28 17:47] LABS: Anion Gap 14 mmol/L (10-20); BUN (Urea Nitrogen) 13 mg/dL (9.8-20.1); Calc. Creatinine Clearance 0 mL/min (70-130); Calcium 9.3 mg/dL (7.8-10.44); Carbon Dioxide 27 mmol/L (23-31); Chloride 110 mmol/L (98-107); Estimated GFR 56; Glucose 97 mg/dL (80-115); Potassium 3.9 mmol/L (3.5-5.1); Sodium 147 mmol/L (136-145)
== END 2024-04-28 13:53 | disposition home or self-care (01) ==
LOC: LABBT 13:52
PROVIDERS: ATTEND Orthopaedic Surgery Hand Surgery
DX: Z01.818 Encounter for other preprocedural examination (principal); G56.32 Lesion of radial nerve, left upper limb; S54.8X Injury of other nerves at forearm level
CPT/HCPCS: 80048; 85025

== ENCOUNTER 2024-05-05 07:24 | Day surgery (SDC) | payer MEDICARE, MEDICAID ==
[2024-04-28 14:12] VITALS: BMI 28.8
[2024-05-05] MEDS ORDERED: Bupivacaine PF 0.5% 30 ML VIAL ONE (08:22)
[2024-05-05] MEDS ORDERED: Bacitracin Zinc Ointment 30 gm TUBE ONE (08:22)
[2024-05-05] MEDS ORDERED: Sodium Chloride 0.9% 100 ML ONE ×2 (09:06→09:11)
[2024-05-05] MEDS ORDERED: CEFAZOLIN 2 GM VIAL ONE ×2 (09:06→09:11)
[2024-05-05] MEDS ORDERED: Midazolam HCl 2 mg/2 ml Vial ONE (09:17)
[2024-05-05] MEDS ORDERED: fentaNYL PF 100 MCG/2 ML SYRINGE ONE (09:17)
[2024-05-05] MEDS ORDERED: Etomidate 40 MG (20 mL) VIAL ONE (09:22)
[2024-05-05] MEDS ORDERED: PHENYLEPHRINE-NS 100 MCG/ML 10 ML SYRINGE ONE (09:45)
[2024-05-05] MEDS ORDERED: Ondansetron PF 4 MG/2 ML Vial ONE (09:51)
[2024-05-05] MEDS ORDERED: Dexamethasone 20 MG/5 ML VIAL ONE (09:51)
[2024-05-05] MEDS ORDERED: Ketamine In 0.9 % NaCl 50 MG/5 ML SYRINGE ONE (10:23)
[2024-05-05] MEDS ORDERED: Lidocaine 1% PF 5 ML VIAL ONE (11:42)
[2024-05-05] MEDS ORDERED: Ketorolac Tromethamine 30 MG (1 mL) VIAL ONE (12:58)
[2024-05-05] MEDS ORDERED: HYDROcodone/Acetaminophen 5/325 mg Tablet ONE (14:51)
== END 2024-05-05 15:15 | disposition home or self-care (01) ==
LOC: SDC 07:24
PROVIDERS: ATTEND Orthopaedic Surgery Hand Surgery
PROC: 01N50ZZ Release Median Nerve, Open Approach (ICD-10-PCS; principal; 2024-05-05)
PROC: 01Q60ZZ Repair Radial Nerve, Open Approach (ICD-10-PCS; 2024-05-05)
PROC: 0JBF0ZZ Excision of Left Upper Arm Subcutaneous Tissue and Fascia, Open Approach (ICD-10-PCS; 2024-05-05)
DX: S54.8X Injury of other nerves at forearm level (principal); D17.22 Benign lipomatous neoplasm of skin and subcutaneous tissue of left arm; G56.32 Lesion of radial nerve, left upper limb; G56.02 Carpal tunnel syndrome, left upper limb; E11.9 Type 2 diabetes mellitus without complications; E78.00 Pure hypercholesterolemia, unspecified; J45.909 Unspecified asthma, uncomplicated; I42.8 Other cardiomyopathies; K21.9 Gastro-esophageal reflux disease without esophagitis; I63.89 Other cerebral infarction; M67.40 Ganglion, unspecified site; M77.12 Lateral epicondylitis, left elbow; I47.10 Supraventricular tachycardia, unspecified; I11.0 Hypertensive heart disease with heart failure; I50.42 Chronic combined systolic (congestive) and diastolic (congestive) heart failure; M16.11 Unilateral primary osteoarthritis, right hip; M54.41 Lumbago with sciatica, right side; G47.33 Obstructive sleep apnea (adult) (pediatric); G47.00 Insomnia, unspecified; Z79.899 Other long term (current) drug therapy; Z98.890 Other specified postprocedural states; Z90.710 Acquired absence of both cervix and uterus; Z79.51 Long term (current) use of inhaled steroids; Z88.0 Allergy status to penicillin; Z88.5 Allergy status to narcotic agent; Z88.1 Allergy status to other antibiotic agents; Z91.040 Latex allergy status
CPT/HCPCS: 11604; 25310; 64708; 64721; C1713; J0665; J1100; J1885; J2250; J2405; J3490; 88304

== ENCOUNTER 2025-04-24 13:37 | Outpatient (CLI) | payer MEDICARE, MEDICAID | END 2025-04-24 13:38 | disposition home or self-care (01) | LOC: RAD 13:37 | PROVIDERS: ATTEND Orthopaedic Surgery | DX: M54.50 Low back pain, unspecified (principal); Z98.1 Arthrodesis status | CPT/HCPCS: 72100 ==

== ENCOUNTER 2025-06-07 14:32 | Outpatient (CLI) | payer MEDICARE, MEDICAID | END 2025-06-07 14:33 | disposition home or self-care (01) | LOC: BICMAMMO 14:32 | PROVIDERS: ATTEND Family Medicine | DX: Z12.31 Encounter for screening mammogram for malignant neoplasm of breast (principal); Z91.89 Other specified personal risk factors, not elsewhere classified | CPT/HCPCS: 77063; 77067 ==

== ENCOUNTER 2025-07-19 08:44 | Outpatient (CLI) | payer MEDICARE, MEDICAID | END 2025-07-19 08:45 | disposition home or self-care (01) | LOC: RAD 08:44 | PROVIDERS: ATTEND Family Medicine | DX: M54.50 Low back pain, unspecified (principal); Z98.1 Arthrodesis status | CPT/HCPCS: 72100 ==